=== PATIENT | female | born 1955 | race Hispanic/Latino ===

== ENCOUNTER → 2019-01-01 10:41 | Outpatient (CLI) | payer OTHER, SELFPAY ==
--- NOTE | 2019-01-01 | DI.US.S_ITS ---
PROCEDURE: US SOFT TISSUE HEAD AND NECK INDICATIONS: ENLARGED LYMPHNODE TECHNIQUE: Real-time scanning was performed of the neck region of interest, with image documentation. COMPARISON: None. FINDINGS: Enlarged lymph nodes present within the neck bilaterally largest on the left measuring up to 2.4 cm and on the right 2.1 cm. IMPRESSION: Bilateral neck lymphadenopathy. Neoplastic process such as lymphoma cannot be excluded and clinical correlation recommended. Consider CT for further imaging. Dictated by: Wilfrid ALSTON Interpreted: Bart No MD on 01/01/2019 at 14:30 Approved by: Bart No M.D. on 01/01/2019 at 14:55
== END ==
PROVIDERS: Family Provider Family Medicine; Visit Provider Family Medicine
DX: R59.0 Localized enlarged lymph nodes (principal)
CPT/HCPCS: 76536

== ENCOUNTER → 2019-01-06 09:53 | Outpatient (CLI) | payer OTHER, SELFPAY ==
--- NOTE | 2019-01-06 | DI.CT.S_ITS ---
PROCEDURE: CT SOFT TISSUE NECK W CON INDICATIONS: Enlarged lymph nodes. Clinical concern for lymphoma TECHNIQUE: After the administration of intravenous contrast, 3.0 mm axial sections acquired from the sella to the aortic arch. Additional oblique axial 3.0 mm sections acquired through the pharynx. 3 mm thick coronal and sagittal reformats were generated. For radiation dose reduction, the following was used: automated exposure control. COMPARISON: [facility], CT, CT CHEST W CON, 01/06/2019, 10:28. FINDINGS: Image quality: Excellent. Lymph nodes: Enlarged lymph nodes can be seen within the supraclavicular regions, with the largest group of lymph nodes seen on the left measuring 3.2 x 3.4 cm in greatest axial dimension. Mass effect is seen upon the common carotid artery, which is deviated anteriorly. Lateral to this group of lymph nodes, there is additional enlarged solitary of lymph nodes seen that measures 2.6 x 2 cm in greatest axial dimension. On the right, there also enlarged supraclavicular lymph node seen, with the largest measuring 2.5 x 1.4 centimeters. Enlarged lymph nodes are also seen within the mediastinum and both perihilar regions. Vessels: Visualized vasculature appears patent. Neck spaces: The oropharynx, nasopharynx, and pharynx demonstrate no mucosal lesions. The vocal cords, false vocal cords, pyriform sinuses, epiglottis, vallecula, and tongue base all appear normal. Extramucosal spaces appear unremarkable. Glands: The parotid and submandibular glands appear normal. Thyroid gland demonstrates no significant CT abnormality. Miscellaneous: Visualized brain and orbits appear normal. A left perihilar mass and a mass within the superior segment of the left lower lobe can be seen. Emphysematous changes are seen. Superficial soft tissues appear normal. Bones: No suspicious bony lesions. Visualized sinuses and mastoids appear unremarkable. Relatively prominent cervical spine degenerative changes are seen. IMPRESSION: Enlarged, abnormal supraclavicular lymph nodes are seen, left worse than right. Enlarged mediastinal and perihilar lymph nodes are also partially seen. There is a left parahilar mass and there is a mass seen within the superior segment of the left lower lobe. Please see accompanying chest CT report for greater detail. Differential diagnosis includes lymphoma and metastatic disease. Relatively prominent cervical spine degenerative change noted. Dictated by: Trevin Barreto M.D. on 01/06/2019 at 11:33 Approved by: Trevin Barreto M.D. on 01/06/2019 at 11:39
[2019-01-06 10:27] LABS: Blood Urea Nitrogen 14 mg/dL (7-17); Estimated Glomerular Filt Rate > 60.0 mL/min (>60)
--- NOTE | 2019-01-06 10:46 | DI.CT.S_ITS ---
PROCEDURE: CT CHEST W CON INDICATIONS: R/0 Lymphoma TECHNIQUE: After the administration of intravenous contrast, 5 mm thick sections acquired from the pulmonary apices to the posterior costophrenic angles. 1 mm axial lung, 5 mm thick coronal and sagittal reformats and 7 mm axial MIP were acquired. For radiation dose reduction, the following was used: automated exposure control, adjustment of mA and/or kV according to patient size. COMPARISON: None. FINDINGS: Image quality: Excellent. Lungs and pleura: No acute air space opacities. Within the superior segment left lower lobe, there is a necrotic 30 mm diameter ovoid density adjacent to the proximal descending thoracic aorta. There is mild apical predominant emphysema bilaterally. No pleural effusions or pneumothorax. Central and peripheral airways are patent and normal in caliber. Mediastinum: Heart size is normal. There is calcification of the coronary vasculature. No pericardial effusion. Multiple sites of bulky necrotic mediastinal adenopathy are present, largest of which measure 22 mm short axis in the right superior paratracheal location, 29 mm short axis in the right mid paratracheal location, 26 mm short axis in the aortocaval location, 20 mm short axis in the subcarinal location, 24 mm short axis in the right hilar location, and 21 mm short axis in the left hilar location. Thoracic aorta and central pulmonary arteries are normal in size. Esophagus is normal in caliber. No hiatal hernia. Bones and chest wall: No suspicious bony lesions. No vertebral body compression fractures. Bilateral necrotic supraclavicular adenopathy is present, measuring 25 mm short axis on the left, and 18 mm short axis on the right. Thyroid gland is within normal limits. Abdomen: Visualized portions of the upper abdomen demonstrate an incompletely visualized right retroperitoneal mass measuring 22 mm short axis, possibly arising from the right adrenal gland, and demonstrating evidence of inferior vena cava invasion. IMPRESSION: 1. Necrotic supraclavicular, mediastinal, and hilar adenopathy, consistent with metastatic disease versus lymphoma. 2. Superior segment left lower lobe pulmonary lesion, possibly indicating metastatic disease. 3. Incompletely visualized right retroperitoneal mass, which may arise from the adrenal gland, and demonstrates evidence of inferior vena cava invasion. 4. Coronary artery disease. Dictated by: Allen Contreras M.D. on 01/06/2019 at 11:06 Approved by: Allen Contreras M.D. on 01/06/2019 at 11:12
--- NOTE | 2019-01-28 14:10 | ONC.MSW ---
Description: Initial Navigation T/C Activity: [facility] called and requested for this MANDOLIN REPAIRER/Navigator to call pt's urgently due to his 's newly diagnosed metastatic lung cancer with widespread mets. They had initially considered establishing care on Saturday, however were not able to get in for 3-weeks. MANDOLIN REPAIRER was able to coordinate with schedulers to obtain a new pt consult date this upcoming Saturday, Feb.02 at 11:00am, which pt/spouse accepted. Discussed initial resource/support needs. shares that pt is not coping well, has been understandably tearful since yesterday, when she was given the results of her pathology from Dr. Chávez. MANDOLIN REPAIRER offered reassurance and explained the role of navigation, as well as resources and support available here in clinic. The only immediate need identified prior to their consult visit is for [place] medical priority [place], which MANDOLIN REPAIRER completed/scanned/emailed to him today. They may need assistance with insurance concerns later this month, [place]. Plan-Meet with pt/spouse on Saturday for first f/f visit, and assist with next steps.
== END ==
PROVIDERS: Visit Provider Family Medicine
DX: C85.90 Non-Hodgkin lymphoma, unspecified, unspecified site (principal); C79.31 Secondary malignant neoplasm of brain; R59.0 Localized enlarged lymph nodes; M47.812 Spondylosis without myelopathy or radiculopathy, cervical region; I25.10 Atherosclerotic heart disease of native coronary artery without angina pectoris
CPT/HCPCS: 36415; 70491; 71260; 82565; 84520; Q9967

== ENCOUNTER 2019-01-16 06:36 | Day surgery (SDC) | payer OTHER, SELFPAY ==
[2019-01-14 11:50] VITALS: BMI 19.3
[2019-01-16] VITALS (10 sets, daily range): BP systolic 144–186; BP diastolic 76–97; PULSE 70–83; RESP 12–20; TEMP 36.2–36.7; O2SAT 92–96; BMI 19.3
--- NOTE | 2019-01-16 | PATH_ITS ---
[facility] Accession Number: [id number] . 01 Material submitted: . lymph node - LEFT NECK LYMPH NODE . 01 Clinical history: . GENERALIZED ENLARGED LYMPH NODES ENLARGED CENTRAL CHEST AND NECK NODES. POSSIBLE LUNG MASS VS NODES . 02 Diagnosis: Left Neck Lymph Node, Biopsy: Adenocarcinoma, consistent with metastasis of lung origin. [facility] 01/21/2019 1455 Local . 02 Comment: As part of routine manufacturing quality manager, Dr. Sidhu has reviewed this case and agrees with the diagnosis of metastatic adenocarcinoma consistent with lung primary. The preliminary findings in this case were reported to Dr. Diaz via his RN, Abbey, by Dr. Benito Mitchell on 01/20/2019 at 1 p.m. . Molelcular studies are pending, and results will be issued in an addendum. . Concurrent flow cytometery ([id number]) shows no evidence of a B or T cell lymphoma. . 02 Electronically signed: . Benito Mitchell MD, PhD, Pathologist NPI- [id number] . 01 Gross description: . Received in formalin, labeled left neck lymph node-formalin, are multiple pieces of thompson tissue (2.0 x 1.5 x 0.3 cm in aggregate). Entirely submitted in cassette A1. Note: Per the requisition, also received were two containers with RPMI and tissue, one wet slide, and one dry slide. ([id number]) /MRV 01/17/2019 2050 Local . 02 Microscopic: . Sections are of a proliferation of epithelioid cells with a diffuse growth pattern. No lymph node tissue is identified. To further classify the epithelioid neoplasm, a panel of immunohistochemical stain is performed (each with an appropriately positive control), with the following immunophenotype: . KATIE - Positive. TTF1 - Positive. Napsin A - Positive. Cytokeratin 7 - Positive. Cytokeratin 20 - Negative. p40 - Rare positive cells. CK5/6 - Negative. S100 - Negative. MARY ANN-3 - Negative. . The morphology and immunoprofile are consistent with metastatic adenocarcinoma of pulmonary origin. . . * This test was developed and its performance characteristics determined by [facility]. It has not been cleared or approved by the U.S. Food and Drug Administration. The FDA has determined that such clearance or approval is not necessary. This test is used for clinical purposes. It should not be regarded as investigational or for research. . . . . . 02 Pathologist provided ICD-10: C77.0 . 02 CPT . 715092, Z52137, O81290 Performed at: 01 [facility] [address] [id number] MD Aleks Vela MD Phone: [phone] Performed at: 02 [facility] [id number] [place] [id number] MD Mar Sidhu MD Phone: [phone]
[2019-01-16] MEDS: LACTATED RINGERS 1,000 ML 42 ML IV (07:27)
--- NOTE | 2019-01-16 08:09 | PM.PREOP ---
Pre-operative Note Interval Note History & Physical reviewed/Exam performed by Physician: Yes Changes to H&P: No H&P completed within 30 days and has changed as indicated here:: see office note 01/14
[2019-01-16] MEDS: CEFAZOLIN 1 GM/50 ML FROZ.PIGGY IV (08:15)
--- NOTE | 2019-01-16 08:55 | SUR.OPER ---
Supine on padded OR bed, head on pillow, right arm secured on padded arm board at <90 degrees abduction, left arm tucked and padded, legs uncrossed, safety belt at thigh, tape over blanket over lower legs.
[2019-01-16] MEDS: BUPIVACAINE 0.5% W/ EPI (PF) VIAL 30 ML INJ (09:26)
--- NOTE | 2019-01-16 09:30 | PM.OP.1 ---
Operative Date/Time/Diagnoses Date of procedure: 01/16/19 Time of procedure: 09:01 Pre-op diagnosis: Lymphadenopathy possible lymphoma Post-op diagnosis: same Procedure & Clinicians Procedure: Incisional biopsy lymph node a superficial left neck Same procedure as scheduled: Yes Indications: Diagnostic Surgeon: Nahid Parks Click Yes if Unassisted: Yes Anesthesia Type: General Operative Notes Findings: Noted here in densely to surrounding structures. Central portion of node removed in pieces. Closure Type: primary Specimen(s): other (Node) Prosthetic devices, grafts, tissues, transplants, or devices: None Estimated Blood Loss (mL): 10 Procedure in detail: The patient was placed supine on the operating room table and underwent general endotracheal anesthesia. She was prepped and draped in the usual fashion. A roll was placed under left flank. Incision was made in Jayshree's lines overlying the mass. It was carried down through platysma to the level the mass. It was clear that this mass was densely adherent everything around it. I began to dissect and fluid egress from the node which I cultured. I then realized that to remove this would be risking damaging everything around it including major venous structures. I therefore began to take pieces from the center the node and the successfully completed work when I thought I had enough tissue for diagnosis. We submitted tissue in formalin and a floor flow cytometry. Slides were prepared as well. Cultures were taken. The subcu was closed with interrupted 3 0 Vicryl. The skin was closed with interrupted 5 0 Vicryl subcuticular stitches and Steri-Strips. Pressure was principally what was used to control bleeding. There was no bleeding at completion. Dressing was applied the patient was awakened extubated and taken recovery room good condition. Complications: none Post-operative Condition: stable Disposition: PACU Plan for aftercare: Will contact patient regarding pathology and make necessary referrals once diagnosis is made.
[2019-01-16] MEDS: fentaNYL 100 MCG/2 ML INJ 50 MCG IV (09:43)
[2019-01-16] MEDS: BENZOCAINE/MENTHOL 1 LOZ PKT 1 EACH PO (09:50)
[2019-01-16] MEDS: OXYCODONE/ACETAMINOPHEN 5/325 TABLET 1 TAB PO (10:02)
== END 2019-01-16 10:48 | disposition home or self-care (01) ==
LOC: OR 06:38
PROVIDERS: PCP Family Medicine; Visit Provider Specialist
PROC: (CPT 38500; principal; 2019-01-16 07:45)
DX: C77.0 Secondary and unspecified malignant neoplasm of lymph nodes of head, face and neck (principal); F17.210 Nicotine dependence, cigarettes, uncomplicated
CPT/HCPCS: 38500; 87070; 87075; 87205; J1100; J2250; J2405; J2704; J3010

== ENCOUNTER → 2019-02-11 07:16 | Outpatient (CLI) | payer OTHER, SELFPAY ==
--- NOTE | 2019-02-11 07:18 | DI.MRI.S_ITS ---
PROCEDURE: MR HEAD/BRAIN WO/W CON INDICATIONS: LUNG CANCER TECHNIQUE: Noncontrast axial T1 spin echo, axial T2 fast spin echo, sagittal and axial FLAIR, coronal T2 fast spin echo, axial gradient echo, axial diffusion and ADC through the brain. After the administration of contrast, axial and coronal T1 spin echo with fat saturation through the brain. COMPARISON: None. FINDINGS: Image quality: Excellent. CSF spaces: Basal cisterns are patent. No extra-axial fluid collections. Ventricles are normal in size and shape. Brain: No midline shift. Multiple presumed intracranial metastatic lesions are present demonstrating predominantly rim enhancement pattern, largest of which is seen in the left temporal lobe measuring approximately 2.1 cm in diameter. There is surrounding vasogenic edema. Additional smaller satellite adjacent lesion measuring 7 mm on image 58 series 14. Ill-defined and peripherally enhancing presumed metastasis also noted within the left aspect of the cheryl which may extend into the midbrain Additional 5 mm anterior left frontal lobe metastasis on image 83 series 14. There is cerebral volume loss for age. There is periventricular white matter chronic small vessel ischemic change. The brainstem appears normal. Diffusion-weighted images demonstrate punctate signal abnormality involving the left basal ganglia region measure 1 mm which may represent lacunar infarct. No chronic ischemic insults. Normal intravascular flow voids are present. Scattered areas of blooming artifact present on the gradient echo pulse sequence as the film montage image which could represent chronic blood products and/or calcifications Skull and face: Calvarial marrow is normal in signal. Orbits appear normal. Sinuses: Sinuses and mastoids appear clear. IMPRESSION: Multiple presumed intracranial metastases as detailed above, the largest of which in the left temporal lobe with surrounding vasogenic edema. Additional metastases seen within the brainstem (left cheryl/midbrain) A tiny focus of signal change within the left basal ganglia region may represent small acute lacunar infarct measuring 1 mm versus atypical T2 shine through artifact. Please correlate clinically. Background diffuse small white matter signal changes, probably represent chronic microvascular ischemic disease, versus statistically less likely demyelination or other infectious, inflammatory, neurodegenerative etiology, technically nonspecific. Dictated by: Bart No M.D. on 02/11/2019 at 9:57 Approved by: Bart No M.D. on 02/11/2019 at 10:08
--- NOTE | 2019-02-11 08:39 | DI.CT.S_ITS ---
PROCEDURE: CT ABDOMEN PELVIS W CON INDICATIONS: LUNG CANCER TECHNIQUE: After the administration of oral and intravenous contrast, 5 mm thick sections acquired from the diaphragms to the symphysis. 5 mm thick coronal and sagittal reformats were performed. For radiation dose reduction, the following was used: automated exposure control, adjustment of mA and/or kV according to patient size. COMPARISON: [facility], CT, CT CHEST W CON, 01/06/2019, 10:28. [facility], CT, ABDOMEN WITH CONTRAST, 07/02/2006, 10:04. FINDINGS: Image quality: Excellent. ABDOMEN: Lung bases: Lung bases are clear. Heart size is normal. Solid organs: Hepatic steatosis. Nodular appearance of the liver suggestive of cirrhosis. There is 1 cm subcapsular hyper enhancement present within the anterior dome on image 12 series 2, potentially vascular shunting in nature however technically indeterminate and recommend attention to this area to exclude hypervascular metastasis. This may have been present on the prior study dated 07/02/06 although less conspicuous Gallbladder unremarkable. Biliary system is non-dilated. Pancreas enhances normally. Spleen is normal in size and enhancement. Large right adrenal nodule measuring 2.7 cm diameter closely abuts the posterior margin of the IVC and appears enlarged since prior study dated 01/06/19 although only incompletely visualized the prior study. Kidneys are normal in size and enhancement, without hydronephrosis. Subcentimeter simple appearing left renal cysts. Peritoneum and bowel: Stomach, small bowel, and colon loops are normal in caliber and wall thickness. No free fluid or air. Nodes and vessels: Shotty retroperitoneal lymph nodes, without definite pathologic enlargement. Aorta and inferior vena cava are normal in caliber. Miscellaneous: No ventral hernias. PELVIS: Genitourinary: Bladder wall thickness is normal. Miscellaneous: No inguinal hernias or adenopathy. Bones: No suspicious bony lesions. No vertebral body compression fractures. IMPRESSION: Interval enlargement of right adrenal metastasis, which closely abuts the posterior margin of the IVC, and may represent early tumor invasion as previously described. Shotty retroperitoneal lymph nodes without definite pathologic enlargement. Nodular cirrhosis of the liver. A hypervascular focus in the subcapsular anterior dome may represent vascular shunting, however recommend close attention to this area on subsequent surveillance studies. Dictated by: Bart No M.D. on 02/11/2019 at 9:21 Approved by: Bart No M.D. on 02/11/2019 at 9:31
== END ==
PROVIDERS: PCP Family Medicine; Visit Provider Internal Medicine Hematology & Oncology
DX: C34.90 Malignant neoplasm of unspecified part of unspecified bronchus or lung (principal); C79.71 Secondary malignant neoplasm of right adrenal gland; G93.9 Disorder of brain, unspecified; K74.60 Unspecified cirrhosis of liver
CPT/HCPCS: 70553; 74177; A9579; Q9967

== ENCOUNTER 2019-03-02 08:47 | Day surgery (SDC) | payer OTHER, SELFPAY ==
[2019-02-25 08:04] VITALS: BMI 19.2
[2019-03-02] VITALS (8 sets, daily range): BP systolic 133–171; BP diastolic 79–92; PULSE 51–481; RESP 9–98; TEMP 36–36.3; O2SAT 96–98; BMI 19.0
--- NOTE | 2019-03-02 | DI.RAD.S_ITS ---
PROCEDURE: XR CHEST 1V INDICATIONS: PORT A CATH TECHNIQUE: One view of the chest was acquired. COMPARISON: [facility], CT, CT CHEST W CON, 01/06/2019, 10:28. FINDINGS: Surgical changes and devices: Right chest Port-A-Cath, the tip of which projects to the superior vena cava. Lungs and pleura: Lungs are clear. No pleural effusions or pneumothorax. Mediastinum: Superior mediastinal and bilateral hilar adenopathy and subcarinal adenopathy. Heart size is normal. Bones and chest wall: No suspicious bony lesions. Overlying soft tissues appear unremarkable. IMPRESSION: Port-A-Cath in place, the tip of which projects to the superior vena cava. Extensive mediastinal and bilateral hilar adenopathy. Dictated by: Julio Whitfield M.D. on 03/02/2019 at 17:07 Approved by: Julio Whitfield M.D. on 03/02/2019 at 17:09
--- NOTE | 2019-03-02 11:25 | PM.HP.1 ---
History of Present Illness History of Present Illness Date Patient Seen: 03/02/19 Time Patient Seen: 11:25 Chief complaint: [id number] Narrative: Patient is a woman with widely metastatic lung cancer here for placement of Port-A-Cath. She has right arm down minute. Patient History Medical History Adenopathy (Acute) Alcoholic cirrhosis (Acute) Anxiety (Acute) Arthritis (Acute) Chronic fatigue (Acute) Current every day smoker (Acute) Depression (Acute) Hepatitis C (Acute) Hypertension (Acute) Impaired vision (Acute) Lung cancer (Acute) Surgical History History of colon surgery (Acute ~08/2016) S/P dissection of cervical lymph nodes (Acute 01/16/19) Family & Social History Family History Mother Cancer Social History: household members spouse Tobacco & Substance use: Smoking Status Current every day smoker alcohol intake former Substance Use Type marijuana Meds Home Medications and Allergies Home Medications Medication Instructions Recorded Confirmed Type dexamethasone 2 mg PO BID #60 tab 02/16/19 03/02/19 Rx naproxen sodium [Aleve] 220 mg PO BID PRN 03/02/19 03/02/19 History Allergies Allergy/AdvReac Type Severity Reaction Status Date / Time No Known Drug Allergies Allergy Verified 03/02/19 09:09 Review of Systems Review of Systems Narrative: No cough at this time. No chest pain or heart problems. She has severe left arm pain. No black or bloody bowel movements. Exam Vital Signs (past 8 hours): - 03/02/19 09:15 Temperature 96.8 F L Pulse Rate 481 H Respiratory Rate 98 H Blood Pressure 148/79 H Oxygen Delivery Method Room Air Narrative Exam Narrative: Cachectic woman in no apparent distress. Tearful. Her eyes are nonicteric. Lungs are clear to auscultation. Heart regular rate and rhythm without murmur gallop. Abdomen is soft nontender. No rashes of the chest wall. Palpable nodes both necks. Alert and oriented x3. Assessment & Plan Assessment & Plan narrative: Patient with lung cancer metastatic to the adrenals the brain of the left arm as well as to hilar neck lymph nodes. She is here for Port-A-Cath so she can get chemotherapy. I have reviewed her CT scan with the radiologist. I would not attempt to use her neck was absolutely necessary because of the amount of tumor there. It appears the bow subclavian systems are patent. Will proceed with a a right-sided Port-A-Cath. I have discussed the procedure with the patient. Risks of bleeding, infection, lung collapse, DVT pulmonary embolism arm swelling all discussed with her. She appears to understand and wishes to proceed.
--- NOTE | 2019-03-02 11:39 | PM.PREOP ---
Pre-operative Note Interval Note History & Physical reviewed/Exam performed by Physician: Yes Changes to H&P: No
[2019-03-02] MEDS: CEFAZOLIN 1 GM VIAL IV (12:00)
--- NOTE | 2019-03-02 12:08 | SUR.OPER ---
Supine on padded OR bed, head on gel donut, towel roll between shoulders, arms padded and tucked at sides, legs uncrossed, safety belt over thighs over blankets.
[2019-03-02] MEDS: HEPARIN 5,000 UNIT, SODIUM CHLORIDE 0.9% 50 ML IV (12:16)
[2019-03-02] MEDS: LIDOCAINE 1% 20 ML INJ (12:17)
--- NOTE | 2019-03-02 12:45 | SUR.PHASEI ---
report given to Geovany Smith RN.
--- NOTE | 2019-03-02 12:50 | PM.OP.1 ---
Operative Date/Time/Diagnoses Date of procedure: 03/02/19 Time of procedure: 12:51 Pre-op diagnosis: Metastatic lung cancer Post-op diagnosis: same Procedure & Clinicians Procedure: Placement of right subclavian Port-A-Cath Same procedure as scheduled: Yes Indications: Need for IV access for chemotherapy Surgeon: Nahid Parks Click Yes if Unassisted: Yes Anesthesia Type: General Operative Notes Findings: Tip in the distal SVC. No evidence of pneumothorax Closure Type: primary Specimen(s): none sent Prosthetic devices, grafts, tissues, transplants, or devices: Port-A-Cath slim Applied: catheter Estimated Blood Loss (mL): 5 Blood products transfused: none Procedure in detail: The patient was placed supine on the operating table and underwent general LMA anesthesia. She was prepped and draped in the usual fashion placed in Trendelenburg. Block anesthesia was performed beneath the right clavicle. Incision was made and carried in the subcu. A pocket was created inferior to the incision. A needle was inserted on 1st attempt into the subclavian vein. Guidewire was passed needle removed. The port was put together and tapered to appropriate length. The port was placed in the pocket. The dilator and introducer were passed over the guidewire under fluoroscopic visualization. The wire and dilator were removed leaving the introducer in place. The catheter was passed through the introducer and the introducer peeled away leaving it in place. The tip appeared to be in the distal SVC. The catheter was aspirated and flushed with heparinized saline. The catheter was secured to the chest wall with interrupted 2 0 silk sutures. Subcu was closed with interrupted 3 0 Vicryl and skin was closed running 4 0 Vicryl subcuticular stitch and Steri-Strips. Dressing was applied and patient was awakened, extubated and taken recovery area in good condition. Postprocedure chest x-ray showed no evidence of pneumothorax and the tip in the SVC Complications: none Post-operative Condition: stable Disposition: PACU
== END 2019-03-02 13:31 | disposition home or self-care (01) ==
PROVIDERS: PCP Family Medicine; Visit Provider Specialist
PROC: (CPT 36561; principal; 2019-03-02 10:30)
DX: C34.90 Malignant neoplasm of unspecified part of unspecified bronchus or lung (principal); Z45.2 Encounter for adjustment and management of vascular access device; F17.210 Nicotine dependence, cigarettes, uncomplicated
CPT/HCPCS: 36561; 71045; 76000; C1788; J0690; J1644; J2250; J2704; J3010

== ENCOUNTER 2019-04-06 10:40 | Emergency (ER) | payer OTHER, SELFPAY ==
[2019-04-06 10:50] VITALS: BP 159/104; PULSE 103; RESP 20; TEMP 36.6; O2SAT 95; BMI 17.9
--- NOTE | 2019-04-06 10:54 | DI.RAD.S_ITS ---
PROCEDURE: XR HUMERUS LT 2V INDICATIONS: hx of mets to L arm, c/o worsening pain TECHNIQUE: 2 views of the humerus were acquired. COMPARISON: None. FINDINGS: Bones: No definite fracture identified however there is a large lytic lesion involving the proximal left humeral diaphysis measuring 2.4 x 2.6 cm. Soft tissues: No suspicious soft tissue calcifications. IMPRESSION: Large lytic lesion involving the proximal left humeral diaphysis presumably reflecting metastatic lesion. Given the appearance, suspect high risk of pathologic fracture and recommend appropriate precautions. Findings were personally telephoned and discussed with Dr. Garcia in the emergency department at 1131 hours 04/06/19. Dictated by: Bart No M.D. on 04/06/2019 at 11:28 Approved by: Bart No M.D. on 04/06/2019 at 11:32
--- NOTE | 2019-04-06 11:28 | ED.EXTPRO ---
HPI - Extremity Problem <EMY Newman - Last Filed: 04/06/19 15:51> General Chief complaint: Extremity Problem,Nontraumatic Stated complaint: both arms hurt Time Seen by Provider: 04/06/19 11:09 Source: patient and family Mode of arrival: Wheelchair Limitations: no limitations History of Present Illness HPI Narrative: This is a 63 old female, former smoker, presents to ED with chief complain of left upper arm pain and now patient also has right shoulder strain pain. Patient has history of lung cancer and recently they found cancer which has been met to brain and left humerus pain. Patient reports due to pain on her left arm has been using increasing right arm to pull herself up and lift. Patient reports has been having increasing pain on left arm and right shoulder during last 3 days. Patient's is currently taking Percocet 5/325 about every 4.5 hours instead of as it is prescribed as 6 hours. Patient and spouse states they have Orthopedic referral and waiting for the office to call back. Patient reports decreased p.o. fluid and food intakes and also complaining of tongue discomfort. Patient has next course of chemotherapy on 04/20/19. Related Data Home Medications Medication Instructions Recorded Confirmed naproxen sodium [Aleve] 220 mg PO BID PRN 03/02/19 04/06/19 Previous Rx's Medication Instructions Recorded ondansetron HCl [Zofran] 4 mg PO Q6H PRN #30 tab 03/09/19 oxycodone-acetaminophen [Endocet] 1 tab PO Q6H PRN #60 tab 03/30/19 lidocaine HCl [Lidocaine Viscous] 1 applictn MM TID-QID PRN #100 ml 04/06/19 oxycodone-acetaminophen 1 tab PO Q4-6H PRN #20 tab 04/06/19 Allergies Allergy/AdvReac Type Severity Reaction Status Date / Time hydrocodone AdvReac Mild Nausea Verified 04/06/19 10:58 Review of Systems <EMY Newman - Last Filed: 04/06/19 15:51> Review of Systems Narrative: General: Denies fever, chills, fatigue, malaise, sweats. HEENT: Denies sinus pain, ear pain, sore throat, difficulty swallowing, dizziness. Respiratory: Denies dyspnea, cough, wheezing, hemoptysis, sputum. Cardiovascular: Denies chest pain, palpitations, orthopnea, edema. Gastrointestinal: Reports decreased p.o. intake of fluids and solids. Reports tongue pain. Denies nausea, vomiting, abdominal pain, diarrhea, constipation, melena. : Denies dysuria, frequency, incontinence, hematuria, urinary retention. Musculoskeletal: See HPI Skin: Denies rash, skin lesions, or other. Neurologic: Denies weakness, headache, numbness, change in speech, confusion, seizures, incoordination. Psychiatric: No concerning psychosocial issues. 12-point review of systems is negative except for those stated above. Patient History <EMY Newman - Last Filed: 04/06/19 15:51> Medical History Adenopathy (Acute) Alcoholic cirrhosis (Acute) Anxiety (Acute) Arthritis (Acute) Chronic fatigue (Acute) Current every day smoker (Acute) Depression (Acute) Hepatitis C (Acute) Hypertension (Acute) Impaired vision (Acute) Lung cancer (Acute) Lung cancer metastatic to brain (Acute) Surgical History History of colon surgery (Acute ~08/2016) S/P dissection of cervical lymph nodes (Acute 01/16/19) Family History Mother Cancer Social History (Updated 04/06/19 @ 11:34 by EMY Newman) marital status: household members: spouse Smoking Status: Former smoker alcohol intake: former substance use type: marijuana Smoking Status: Current every day smoker Substance Use Type: marijuana Exam <EMY Newman - Last Filed: 04/06/19 15:51> Narrative Exam Narrative: GEN: Alert, oriented x 3, medically fragile appearing and under nourished, and in appears to be in pain. Head: Normal cephalic, atraumatic. No scalp or temporal tenderness, palpable mass or rash. EYES: Pupils are equal, round, and reactive to light and accommodation. Extraocular muscles are intact bilaterally. There is no subconjunctival hemorrhage, exudate and sclera non-icteric. ENT: Bilateral auditory canals and tympanic membranes clear. Hearing grossly intact. Nose without bleeding, purulent discharge or deviation. Facial sinuses nontender to palpate. Mucous membrane dry anterior tongue mucosal lesion. Throat without erythema, tonsillar hypertrophy or exudate. Uvula in midline, airway patent. Neck: Trachea in midline. No JVD, non-tender. No masses or thyroid megaly. Supple, non-tender and no meningeal signs. CARDIAC: Normal regular rate and rhythm without murmurs, gallops, or rubs. No chest wall tenderness. No peripheral edema, cyanosis or pallor. Capillary refill is less than 2 seconds. RESPIRATORY: Lungs are clear to auscultate bilaterally. No cough, wheezes, rales, or rhonchi. No stridor, respiratory distress, increase work of breathing, or accessary muscle used. ABD: Abdomen soft, nontender and non-distended. No guarding or rebound tenderness to palpate. Bowel sounds are normal in all 4 quadrants. There is no palpable masses or organomegaly. EXT: Full painless ROM of all extremities with no loss of sensation, strength, effusion or edema. SKIN: Warm, dry, normal color for patient. No erythema, lesions or rash over visible areas. BACK: Nontender without deformity or crepitance. No flank tenderness. NEUROLOGICAL: Alert and oriented to place, time and person. Sensation and motor function intact bilaterally. No facial droops, dysphasia. PSYCHIATRIC: Good judgement and reason, without hallucinations, abnormal affect or abnormal behaviors during the examination. Patient is not suicidal. Initial Vital Signs Initial Vital Signs: Vital Signs Temperature 97.9 F 04/06/19 10:50 Pulse Rate 103 H 04/06/19 10:50 Respiratory Rate 20 04/06/19 10:50 Blood Pressure 159/104 H 04/06/19 10:50 Pulse Oximetry 95 04/06/19 10:50 <Janet Garcia DO - Last Filed: 04/07/19 07:38> Initial Vital Signs Initial Vital Signs: Vital Signs Temperature 97.9 F 04/06/19 10:50 Pulse Rate 103 H 04/06/19 10:50 Respiratory Rate 20 04/06/19 10:50 Blood Pressure 159/104 H 04/06/19 10:50 Pulse Oximetry 95 04/06/19 10:50 Procedures <EMY Newman - Last Filed: 04/06/19 15:51> Orthopedic Splinting/Casting Injury #1: Side: left Upper Extremity Injury Location: upper arm Upper Extremity Immobilizer: sling/shoulder immobilizer Post splinting neuro exam: intact Post splinting vascular exam: intact Placed by: Nursing Course <EMY Newman - Last Filed: 04/06/19 15:51> Orders Ordered: ED Orders 04/06/19 10:54 XR humerus LT 2V Stat Vital Signs Vital signs: Vital Signs - 8 hr 04/06/19 10:50 04/06/19 11:57 Temperature 97.9 F Pulse Rate 103 H 88 Respiratory Rate 20 18 Blood Pressure 159/104 H Blood Pressure [Right Arm] 174/86 H Pulse Oximetry 95 99 <Janet Garcia DO - Last Filed: 04/07/19 07:38> Orders Ordered: ED Orders 04/06/19 10:54 XR humerus LT 2V Stat Vital Signs Vital signs: Vital Signs - 8 hr 04/06/19 10:50 04/06/19 11:57 Temperature 97.9 F Pulse Rate 103 H 88 Respiratory Rate 20 18 Blood Pressure 159/104 H Blood Pressure [Right Arm] 174/86 H Pulse Oximetry 95 99 MDM - Extremity (Nontraumatic) <EMY Newman - Last Filed: 04/06/19 15:51> Differential Diagnosis Differential diagnosis: Likely other (Metastasized cancer to left humerus, left humerus fracture, cancer related bone pain, right shoulder strain) Medical Records Attestation: I reviewed the patient's medical records. Imaging Data XR-Hurmerus LT: Radiologist's impression: Laisha Li 63 F [address] [address] XRay Report Signed Patient: IndigojulisaLaisha JMR#: [id number] : 1955cct:[id number] Age/Sex: 63 / FDate of Service: 04/06/19 Loc: ED Accession Number: [id number] Procedure: XR humerus LT 2V Ordering Provider: Janet Garcia D.O. PROCEDURE: XR HUMERUS LT 2V INDICATIONS: hx of mets to L arm, c/o worsening pain TECHNIQUE: 2 views of the humerus were acquired. COMPARISON: None. FINDINGS: Bones: No definite fracture identified however there is a large lytic lesion involving the proximal left humeral diaphysis measuring 2.4 x 2.6 cm. Soft tissues: No suspicious soft tissue calcifications. IMPRESSION: Large lytic lesion involving the proximal left humeral diaphysis presumably reflecting metastatic lesion. Given the appearance, suspect high risk of pathologic fracture and recommend appropriate precautions. Findings were personally telephoned and discussed with Dr. Garcia in the emergency department at 1131 hours 04/06/19. Dictated by: Bart No M.D. on 04/06/2019 at 11:28 Approved by: Bart No M.D. on 04/06/2019 at 11:32 MDM Narrative Medical decision making narrative: This is a 63-year-old female with a history of lung cancer with met cancer to her brain and left humerus from recent PET scan imaging test. Patient has been having increasing pain on left humerus and also right shoulder discomfort. Patient states she has been taking 1 Percocet about every 4.5 hours to use the pain which has not been effectively managed. Patient has been using [id number] sling on left shoulder. Patient has been using right arm to pull due to pain in left upper arm and this has been increasing last 3-4 days. Patient also has been having difficulty eating and drinking due to stomatitis. X-ray test shows no fracture at this time but large lidocaine lesion involving proximal left humeral diaphysis. Patient and her spouse encouraged to contact orthopedics office again to be seen sooner as refer has been arranged by oncologist. Also, patient and spouse to contact Oncology office to be seen sooner than scheduled appointment due to patient has difficult time eating and drinking prior next chemotherapy. Patient's affected arm was splinted with left shoulder immobilizer and advised to take a precaution not to injured or fall. New prescription has been provided for pain management with oxycodone 7.5 mg/Tylenol 300 mg every 4-6 hours as needed and not to take additional patient's current Percocet. Lidocaine oral gel has been provided for stomatitis and advised to hydrate and is small amount of fluids. Patient and spouse verbalized understanding and agrees with treatment plan. Return precautions were discussed. Discharge Plan Departure Patient Disposition: Home Clinical Impression: Upper extremity pain Qualifiers: Laterality: bilateral Qualified Code(s): M79.601 - Pain in right arm Discharge Date/Time: 04/06/19 12:19 Instructions: Cancer Pain Syndromes Activity Restrictions/Additional Instructions: You have been diagnosed with [metastatic left humerus bone pain without fracture at this time. However this is a high risk for fracture. Please use sling that has been provided to you and take precaution not to injure your left arm. Please follow-up with orthopedics as suggested by our oncologist.]. What to do: *Take your medications as directed. Your Percocet dose has been increased to 7.5/300 mg. you can take 1 tab of pain medication every 4-6 hours as needed for discomfort. When you take increased Percocet dose please do not take additional your Percocet that you have. I order oral lidocaine gel for discomfort on her tongue. Use this medication periodically and try to hydrate yourself and eat small amount of food frequently. *Follow up with your primary care provider in 2-3 days, call for an appointment and please call Oncology Clinic to set up an appointment. Let them know you were seen in the ED and that we asked you to be seen in follow up. *Return to ED if you have any new, worsening, or concerning symptoms, such as [increasing pain, fracture, breathing difficulty, unable to tolerate fluids, or any acute concerns]. Prescriptions: New oxycodone-acetaminophen 7.5-300 mg tablet 1 tab PO Q4-6H PRN (Reason: pain) Qty: 20 RF: 0 Lidocaine Viscous 2 % solution 1 applictn MM TID-QID PRN (Reason: pain) Qty: 100 RF: 0 No Action naproxen sodium [Aleve] 220 mg Tablet 220 mg PO BID PRN (Reason: Pain) RF: 0 ondansetron HCl [Zofran] 4 mg Tablet 4 mg PO Q6H PRN (Reason: Nausea And Vomiting) Qty: 30 RF: 2 oxycodone-acetaminophen [Endocet] 5-325 mg Tablet 1 tab PO Q6H PRN (Reason: bone metastasis with pain) Qty: 60 RF: 0 Referrals: Porfirio Lugo MD [Primary Care Provider] - Philip Day MD [Physician] -
[2019-04-06 11:57] VITALS: BP 174/86; PULSE 88; RESP 18; O2SAT 99
--- NOTE | 2019-04-07 15:14 | PC.NURSE ---
POTENTIAL SURGERY TO HUMERUS; [facility]TH[facility] CALLED TO INFORM THAT PATIENT WILL BE SEEING SURGEON ON 04/13 AND A SURGERY IS TENTATIVELY PLANNED ON 04/15. SURGEON IS PLANNING TO PUT A NAIL INTO THE HUMERUS TO STABILIZE IT. DR. JERNIGAN WILL BE INFORMED PER THIS NOTE.
== END 2019-04-06 12:19 | disposition home or self-care (01) ==
PROVIDERS: Emergency Provider Nurse Practitioner Family; PCP Family Medicine
DX: M79.601 Pain in right arm (principal); C79.31 Secondary malignant neoplasm of brain
CPT/HCPCS: 73060; 99282; 99283

== ENCOUNTER → 2019-04-10 14:09 | Outpatient (CLI) | payer OTHER, SELFPAY ==
[2019-04-10 15:16] LABS: Add Manual Diff / Slide Review NO; Basophils Absolute Auto 100 /uL (0-100); Basophils Percent Auto 0.7 % (0-2); Eosinophils Absolute Auto 400 /uL (0-450); Eosinophils Percent Auto 2.5 % (2-4); Hematocrit 37.8 % (36-46); Hemoglobin 12.9 g/dL (12.0-16.0); Lymphocytes Absolute Auto 1600 /uL (1100-4500); Lymphocytes Percent Auto 9.8 % (25-40); Mean Corpuscular HGB Conc 34.2 % (30-36); Mean Corpuscular Hemoglobin 31.5 PG (26-34); Mean Corpuscular Volume 92.1 fL (80-100); Monocytes Absolute Auto 1800 /uL (0-900); Neutrophils Absolute Auto 12500 /uL (1500-7000); Platelet Count 267 X10^3/uL (150-400); Red Blood Cell Count 4.11 X10^6/uL (4.0-5.2); Red Cell Distribution Width 15.1 % (11.6-14.8); White Blood Cell Count 16.5 X10^3/uL (4.5-11.0)
[2019-04-10 15:32] LABS: Alanine Aminotransferase 10 IU/L (<35); Albumin 3.6 g/dL (3.5-5.0); Albumin Globulin Ratio 0.9 (1.0-2.8); Alkaline Phosphatase 97 U/L (38-126); Aspartate Aminotransferase 32 IU/L (14-36); BUN Creatinine Ratio 25.7 (6-22); Bilirubin Total 1.2 mg/dL (0.2-1.3); Blood Urea Nitrogen 18 mg/dL (7-17); Calcium 9.1 mg/dL (8.4-10.2); Carbon Dioxide 32 mmol/L (22-32); Chloride 92 mmol/L (98-107); Estimated Glomerular Filt Rate > 60.0 mL/min (>60); Globulin 3.8 g/dL (1.7-4.1); Glucose 115 mg/dL (80-110); HEMOLYSIS < 15 (0-50); Potassium 3.7 mmol/L (3.4-5.1); Sodium 134 mmol/L (137-145); Total Protein 7.4 g/dL (6.3-8.2)
== END ==
PROVIDERS: Family Provider Internal Medicine Hematology & Oncology; PCP Family Medicine; Visit Provider Orthopaedic Surgery Adult Reconstructive Orthopaedic Surgery
DX: Z01.818 Encounter for other preprocedural examination (principal); Z01.812 Encounter for preprocedural laboratory examination
CPT/HCPCS: 36415; 80053; 85025; 93005; 93010

== ENCOUNTER 2019-04-20 06:35 | Day surgery (SDC) | payer OTHER, SELFPAY ==
[2019-04-16 12:13] VITALS: BMI 19.2
[2019-04-20] VITALS (10 sets, daily range): BP systolic 142–167; BP diastolic 87–101; PULSE 86–97; RESP 8–20; TEMP 36.4–37.4; O2SAT 93–96; BMI 16.9
--- NOTE | 2019-04-20 | PATH_ITS ---
[facility] Accession Number: [id number] . 01 Material submitted: . humerus - LEFT HUMERUS MARROW . 01 Diagnosis: Bone, Left Humerus, Biopsy: Fragments of trabecular bone, marrow, and desmoplastic/fibrotic tissue with foci highly suspicious for necrotic/degenerated metastatic carcinoma (see comment). Multiple lymphoid aggregates (final diagnosis pending additional studies, reported as an addendum). V 04/28/2019 1327 Local . 01 Comment: A few fragments of desmoplastic fibrotic tissue are identified in all three blocks which, on routine H/E section, exhibit an inflammatory infiltrate, crush artifact, and scattered completely necrotic or extensively degenerated atypical epithelioid cells, the latter of which may represent metastatic carcinoma. *Immunostains to broad spectrum cytokeratins (KATIE) are obtained on blocks A1-A3 and show scattered staining, most of which appears to be unassociated with cells and may represent hemosiderin with a lesser component seemingly associated with possible necrotic cells. Additionally, on block A3, the lung markers TTF1 and napsin are obtained as well as cytokeratin 7. Cytokeratin 7 shows positive staining similar to the KATIE. TTF1 is negative, and napsin shows scattered staining throughout, some of which appears to be cell associated. These immunophenotypic features, in conjunction with the aforementioned morphologic findings, are considered very suspicious for a metastasis from the patient's reported lung adenocarcinoma, yet not diagnostic, due to the extensive degeneration and necrosis of the cells of interest. . As indicated in the diagnostic line, scattered lymphoid aggregates are present within the marrow, which will be more fully evaluated by a hemtopathologist, with those findings and interpretation reported in an addendum. . *The immunohistochemical stains are developed and performance characteristics determined by [facility]. It has not been cleared or approved by the U.S. Food and Drug Administration. The FDA has determined that such clearance or approval is not necessary. This test is used for clinical purposes. It should not be regarded as investigational or for research. The controls stained appropriately. . 01 Electronically signed: . Maribell Lovell MD, Pathologist NPI- [id number] . 01 Gross description: . Received one formalin-filled container labeled with the patient's name and labeled left humerus marrow. The specimen consists of multiple fragments of tissue and clotted blood which measure 3.0 x 1.5 x 0.2 cm in aggregate. The specimen is filtered and entirely submitted in cassettes A1 and A2. Also received is a 0.2 cm in diameter by 0.4 cm in length portion of firm tissue or bone, entirely submitted in cassette A3 and will be placed in decal for softening. ([id number]) /[facility] 04/21/2019 0229 Local . 01 Pathologist provided ICD-10: C79.51 . 01 CPT . 586711, F04980, [id number] Performed at: 01 [facility] [address] [place] [id number] MD Aleks Vela MD Phone: [phone]
--- NOTE | 2019-04-20 | DI.RAD.S_ITS ---
PROCEDURE: XR HUMERUS LT 2V INDICATIONS: LEFT SHOULDER LESION TECHNIQUE: AP, lateral, and oblique views of the humerus were acquired. COMPARISON: Merged With [facility], [place], [place] PET CT FUSION SKULL 2 THIGH, 02/25/2019, 16:01. Merged With [facility], , XR HUMERUS LT 2V, 04/06/2019, 10:52. FINDINGS: Intraoperative fluoroscopy demonstrates the placement of an intramedullary dennise with interlocking screws within the proximal left humerus, traversing the previously identified 2.6 cm lytic lesion of the proximal left humeral diaphysis identified on comparison left humerus radiographs of 04/06/19. IMPRESSION: Intraoperative fluoroscopy demonstrates the placement of an intramedullary dennise with interlocking screws within the proximal left humerus, traversing the previously identified 2.6 cm lytic lesion of the proximal left humeral diaphysis identified on comparison left humerus radiographs of 04/06/19. Dictated by: Dell Quarles M.D. on 04/20/2019 at 17:33 Approved by: Dell Quarles M.D. on 04/20/2019 at 17:42
[2019-04-20] MEDS: OXYCODONE/ACETAMINOPHEN 5/325 TABLET 1 TAB PO ×3 (08:32→13:42)
[2019-04-20] MEDS: LACTATED RINGERS 1,000 ML 42 ML IV ×2 (08:33→09:50)
--- NOTE | 2019-04-20 08:39 | SUR.PREOP ---
Accessed right chest wall portacath using sterile technique on one attempt. Good blood return noted on access and port flushes well and without difficulty. Op-site and 2x2 dressing applied to site. Placed IV fluids to pump tubing and placed fluids on IV pump per protocol.
--- NOTE | 2019-04-20 09:12 | PM.PREOP ---
Pre-operative Note Interval Note History & Physical reviewed/Exam performed by Physician: Yes Changes to H&P: No H&P completed within 30 days and has changed as indicated here:: Plan for L humeral IMN
[2019-04-20] MEDS: CEFAZOLIN 2 GM/100 ML FROZ.PIGGY IV (09:45)
--- NOTE | 2019-04-20 10:35 | SUR.OPER ---
Beach chair with Maquet shoulder positioner. Lower body on padded Skytron OR bed. Head in foam padded head cradle, secured with straps. Non-operative arm secured <90 degrees abduction. Towel roll under left scapula. Pillow under knees. Watson under buttocks. Safety belt at thigh. Cloth tape over blanket over lower legs.
--- NOTE | 2019-04-20 11:42 | PM.OP.1 ---
Operative Date/Time/Diagnoses Date of procedure: 04/20/19 Time of procedure: 11:42 Pre-op diagnosis: metastatic lesion, left humerus Post-op diagnosis: same Procedure & Clinicians Procedure: Prophylactic left humeral nail Same procedure as scheduled: Yes Indications: Metastatic lesion to the left humerus with the Meril's score of 10 Surgeon: Christiano Ragsdale Insurance Auditor: Olesya Tatum Anesthesia Type: General Operative Notes Findings: Left humerus metastatic lesion lytic in nature greater than 2/3 of the diameter of the humerus Closure Type: primary Specimen(s): other (Pathology sent, humeral shaft reamings) Prosthetic devices, grafts, tissues, transplants, or devices: Biomet versa nail 8 mm x 240 mm Biomet [place] humeral flushed impinging end cap Estimated Blood Loss (mL): 50 Blood products transfused: none Procedure in detail: Patient was met in the preoperative holding area where the site and side of surgery marked by MD. All last minute questions were answered. Patient was then brought back into the operating room and placed on to the operating room table. She was induced under general anesthesia. The operating room table and patient was then brought into a beach chair position and a towel bump was placed underneath the left scapula. The left upper extremity is then prepped and draped in normal sterile fashion. A surgical time-out was performed verifying the site and side of surgery as well as the name of the patient. A 4 cm long incision was made in line with the deltoid fibers at the anterolateral corner of the left acromion. Electrocautery was used to gain hemostasis. The deltoid was then split in line with its fibers. A Cobra retractor was then used to retract the deltoid. And a 3 cm long incision was made in the supraspinatus cuff and Ethibond was used to tag the cuff leaflet. The starting guidewire was then placed just medial to the greater tuberosity and centered anterior to posterior so that the starting guidewire was centered in the humeral canal. The starting Reamer was then used to open up the humeral canal. The starting guidewire was then removed along with the Reamer and a ball-tipped guidewire was then placed down the humeral canal. The humeral nail was then placed over the guidewire. Guidewire was then removed and proximal bolts were drilled in place followed by 2 distal interlocking bolts placed using perfect circles technique. Surgical incisions were then copiously irrigated and the cuff was repaired using the Ethibond tag sutures as well as a rip interrupted Ethibond suture. Deltoid fibers were then repaired using 1. Vicryl followed by 2-0 Vicryl in the subcutaneous layer followed by 3-0 nylon in the skin. All percutaneous incisions were closed using 2 Vicryl followed by 3 O nylon. Final films were obtained using C-arm verifying the position of the nail as well as no intrusion of any interlocking bolts into the shoulder joint. Complications: none Post-operative Condition: stable Disposition: same day surgery Plan for aftercare: Plan for DC home today. SAWYER BAEZ.
[2019-04-20] MEDS: fentaNYL 100 MCG/2 ML INJ IV ×3 (12:15→12:59)
--- NOTE | 2019-04-20 13:51 | SUR.PHASEII ---
Provided [place] copy to patient and faxed physician copy to [place]. RX provided to patient. has all paperwork and RX. All belongings returned to patient. Dressing to left shoulder clean, dry and intact. Good cap refill noted. Patient denies numbness or tingling. Sling in place.
--- NOTE | 2019-04-20 14:25 | SUR.PHASEII ---
Flushed portacath with 5 mls of 100 units/ml heparin per protocol. Deaccessed portacath with needle intact. Gauze dressing applied to site. Discharged patient home with in stable condition. To the car via wheelchair.
== END 2019-04-20 14:25 | disposition home or self-care (01) ==
PROVIDERS: Family Provider Internal Medicine Hematology & Oncology; PCP Family Medicine; Visit Provider Orthopaedic Surgery Adult Reconstructive Orthopaedic Surgery
PROC: (CPT 23615; principal; 2019-04-20 09:15)
DX: C79.51 Secondary malignant neoplasm of bone (principal); C34.90 Malignant neoplasm of unspecified part of unspecified bronchus or lung
CPT/HCPCS: 24498; 73030; 73060; 76000; J0690; J1100; J2250; J2405; J2704; J3010

== ENCOUNTER → 2019-05-28 13:01 | Outpatient (CLI) | payer OTHER, SELFPAY ==
--- NOTE | 2019-05-28 13:03 | DI.MRI.S_ITS ---
PROCEDURE: MR HEAD/BRAIN WO/W CON INDICATIONS: metastatic lung cancer TECHNIQUE: Noncontrast axial T1 spin echo, axial T2 fast spin echo, sagittal and axial FLAIR, coronal T2 fast spin echo, axial gradient echo, axial diffusion and ADC through the brain. After the administration of contrast, axial and coronal 3D VIBE or T1 spin echo with fat saturation through the brain. COMPARISON: [facility], MR, MR HEAD/BRAIN WO/W CON, 02/11/2019, 8:52. FINDINGS: Image quality: Excellent. CSF Spaces: Basal cisterns are patent. No extra-axial fluid collections. Ventricles are normal in size and shape. Brain: No midline shift. No intracranial bleeds or new masses. The post-treatment imaging shows significant interval reduction in size of a metastatic focus at the left temporal lobe, middle third, which now is associated with only a slight degree of internal contrast enhancement over a 4 x 6 mm dimension, and also elevated flair signal in that area, much improved from the comparison study 02/11/19. Additionally, similar improvement has occurred in the area of metastatic disease involving the left pontine portion of the brainstem, where a definite residual enhancing lesion is no longer seen. Elevated flair signal in that area persists, tracking into the cerebellar peduncle on the left. This pontine involvement has significantly improved also. No new abnormal intracranial enhancement. Diffusion-weighted images demonstrate no ischemic insults. No chronic ischemic insults. Normal intravascular flow voids are present. Skull and face: Calvarial marrow is normal in signal. Orbits appear normal. Sinuses: Sinuses and mastoids appear clear. IMPRESSION: Interval therapy from the MR scanning 02/11/19 2 the current examination shows significant reduction in the left temporal lobe enhancing mass lesion with adjacent prominent vasogenic edema and also no residual enhancing mass lesion in the left pontine portion of the brainstem with previously more prominent vasogenic edema. Residual elevated flair signal is seen at each of those areas over a significantly reduced size of involvement. No new metastatic disease has developed. Dictated by: Reyes Sheriff M.D. on 05/28/2019 at 16:28 Approved by: Reyes Sheriff M.D. on 05/28/2019 at 16:36
== END ==
PROVIDERS: Family Provider Internal Medicine Hematology & Oncology; PCP Family Medicine; Visit Provider Internal Medicine Hematology & Oncology
DX: C34.32 Malignant neoplasm of lower lobe, left bronchus or lung (principal); C77.8 Secondary and unspecified malignant neoplasm of lymph nodes of multiple regions; C79.31 Secondary malignant neoplasm of brain; C79.71 Secondary malignant neoplasm of right adrenal gland; C79.51 Secondary malignant neoplasm of bone
CPT/HCPCS: 70553

== ENCOUNTER 2019-07-02 12:17 | Emergency (ER) | payer OTHER, SELFPAY ==
[2019-07-02] VITALS (9 sets, daily range): BP systolic 176–225; BP diastolic 101–114; PULSE 60–68; RESP 14–21; TEMP 35.7; O2SAT 95–97
--- NOTE | 2019-07-02 | DI.RAD.S_ITS ---
PROCEDURE: FL CATHETER PATENCY COMPARISON: None. INDICATIONS: power port catheter not working FINDINGS: Injected contrast material is seen within the power port of, without definite leakage into the surrounding subcutaneous soft tissues. However, only a partial contrast opacification of the proximal segment of the port catheter. There is markedly increased resistance to manual syringe injection. IMPRESSION: Nonfunctioning port, with contrast material partially filling the proximal segment of the catheter. Markedly increased resistance to manual syringe injection. Findings are personally telephoned and discussed with Dr. Banks in the emergency department at 1537 hours on 07/02/19 Dictated by: Bart No M.D. on 07/02/2019 at 15:28 Approved by: Bart No M.D. on 07/02/2019 at 15:38
--- NOTE | 2019-07-02 13:14 | ED.GENADULT ---
HPI - General Adult General Chief complaint: Hypertension Stated complaint: oncology sent Time Seen by Provider: 07/02/19 12:40 Source: patient Mode of arrival: Wheelchair Limitations: no limitations History of Present Illness HPI narrative: Patient is a 63-year-old female. Has a history of lung cancer. Is currently undergoing chemotherapy. Had labs drawn this morning as an outpatient are unremarkable. Went to Oncology today to to her normally scheduled treatment. He was found this morning that they were unable to draw from her power port. There was also concerns at the oncology suite that they were unable to inject anything and the power port. They also found the patient was hypertensive. Upon arrival patient informed me that she had no symptoms to include headache or chest pain or problems breathing or lower extremity swelling. Patient's is at bedside he states that she normally has a blood pressure with a systolic in the 160s to 180s range. She is not taking blood pressure medications. Related Data Home Medications Medication Instructions Recorded Confirmed naproxen sodium [Aleve] 220 mg PO BID PRN 03/02/19 07/02/19 Previous Rx's Medication Instructions Recorded ondansetron HCl [Zofran] 4 mg PO Q6H PRN #30 tab 03/09/19 Lidocaine Viscous 1 applictn MM TID-QID PRN #100 ml 04/06/19 Allergies Allergy/AdvReac Type Severity Reaction Status Date / Time hydrocodone AdvReac Mild Nausea Verified 07/02/19 12:47 Review of Systems Constitutional Constitutional: Denies fever(s) and Denies headache(s) ENT Ears, Nose, Mouth, and Throat: Denies headache(s) Cardiovascular Cardiovascular: Denies chest pain and Denies dyspnea Respiratory Respiratory: Denies cough and Denies dyspnea Gastrointestinal Gastrointestinal: Denies abdominal pain, Denies nausea and Denies vomiting Musculoskeletal Musculoskeletal: Denies myalgias and Denies arthralgias Integumentary/Breasts Skin/Breast: Denies lesions and Denies rash Neurologic Neurologic: Denies behavioral changes and Denies headache(s) Psychiatric Psychiatric: Denies behavioral changes Hematologic/Lymphatic Hematologic/Lymphatic: Denies easy bleeding and Denies easy bruising Patient History Medical History Adenopathy (Acute) Alcoholic cirrhosis (Acute) Anxiety (Acute) Arthritis (Acute) Chronic fatigue (Acute) Current every day smoker (Acute) Depression (Acute) Easy bruisability (Acute) Hepatitis C (Acute) Hypertension (Acute) Impaired vision (Acute) Lung cancer (Acute) Lung cancer metastatic to brain (Acute) Pain (Acute) Port-A-Cath in place (Acute ~2018) Surgical History History of colon surgery (Acute ~08/2016) S/P dissection of cervical lymph nodes (Acute 01/16/19) Social History marital status: household members: spouse Smoking Status: Former smoker alcohol intake: former substance use type: marijuana Smoking Status: Former smoker alcohol intake frequency: holidays/special occasions only Substance Use Type: marijuana and amphetamines Exam Initial Vital Signs Initial Vital Signs: Vital Signs Temperature 96.3 F L 07/02/19 12:35 Pulse Rate 60 07/02/19 12:35 Respiratory Rate 14 07/02/19 12:35 Blood Pressure 225/107 H 07/02/19 12:35 Pulse Oximetry 96 07/02/19 12:35 Const General: cooperative and comfortable Limitations: mental status not altered HENMT Head: normal to inspection and normocephalic Resp Auscultation: clear to auscultation bilaterally Cardio Rate: regular rate Rhythm: regular rhythm GI Inspection: non-distended Palpation: soft and No firm Skin Lesions: no lesions Rashes: no rashes Neuro General: alert, awake and oriented x3 Cognition: normal cognition Speech: speech normal Extrem General: normal to inspection, capillary refill normal and No edema Psych Appearance: grossly normal and well kempt Course Orders Ordered: ED Orders 07/02/19 13:58 XR chest 2V Stat Discontinued Medications Lisinopril (Zestril) 10 mg PO NOW ONE Stop: 07/02/19 16:12 Last Admin: 07/02/19 16:37 Dose: 10 mg Documented by: INDIA Vital Signs Vital signs: Vital Signs - 8 hr 07/02/19 12:35 07/02/19 13:30 07/02/19 14:00 Temperature 96.3 F L Pulse Rate 60 67 68 Respiratory Rate 14 16 18 Blood Pressure 225/107 H Blood Pressure [Left Arm] 193/101 H 185/103 H Pulse Oximetry 96 95 95 07/02/19 14:15 07/02/19 14:45 07/02/19 15:30 Temperature Pulse Rate 68 65 64 Respiratory Rate 16 15 21 Blood Pressure Blood Pressure [Left Arm] 185/104 H 180/108 H 186/105 H Pulse Oximetry 96 97 97 07/02/19 16:15 07/02/19 16:37 07/02/19 17:13 Temperature Pulse Rate 60 65 66 Respiratory Rate 16 16 Blood Pressure 181/114 H 176/111 H Blood Pressure [Left Arm] 200/110 H Pulse Oximetry 97 97 Medical Decision Making Imaging Data Catheter patency x-ray: Radiologist's Impression: [address] [address] XRay Report Signed Patient: Laisha Li CURTISR#: [id number] : 1955cct:[id number] Age/Sex: 63 / FDate of Service: 07/02/19 Loc: ED Accession Number: [id number] Procedure: FL catheter patency Ordering Provider: Robert Banks D.O. PROCEDURE: FL CATHETER PATENCY COMPARISON: None. INDICATIONS: power port catheter not working FINDINGS: Injected contrast material is seen within the power port of, without definite leakage into the surrounding subcutaneous soft tissues. However, only a partial contrast opacification of the proximal segment of the port catheter. There is markedly increased resistance to manual syringe injection. IMPRESSION: Nonfunctioning port, with contrast material partially filling the proximal segment of the catheter. Markedly increased resistance to manual syringe injection. Findings are personally telephoned and discussed with Dr. Banks in the emergency department at 1537 hours on 07/02/19 Dictated by: Bart No M.D. on 07/02/2019 at 15:28 Approved by: Bart No M.D. on 07/02/2019 at 15:38 Chest x-ray: Radiologist's Impression: [address] [address] XRay Report Signed Patient: Laisha Li SHAYY#: [id number] : 7Acct:[id number] Age/Sex: 63 / FDate of Service: 07/02/19 Loc: ED Accession Number: [id number] Procedure: XR chest 2V Ordering Provider: Robert Banks D.O. PROCEDURE: XR CHEST 2V INDICATIONS: Eval for location/placement of port in R chest TECHNIQUE: 2 views of the chest were acquired. COMPARISON: [facility], , XR CHEST 1V, 03/02/2019, 12:48. FINDINGS: Surgical changes and devices: Right chest port is seen, no definite interval change in position or appearance since 03/02/19. The tip projects in the upper SVC/right brachiocephalic vein as before. Lungs and pleura: Lungs are clear. No pleural effusions or pneumothorax. Mediastinum: Mediastinal contours are normal. Heart size is normal. Bones and chest wall: No suspicious bony abnormalities. Soft tissues appear unremarkable. IMPRESSION: No acute disease Unchanged appearance of right chest port Dictated by: Bart No M.D. on 07/02/2019 at 14:47 Approved by: Bart No M.D. on 07/02/2019 at 14:53 ECG Data Attestation: I personally reviewed and interpreted this ECG as follows: Prior ECG tracings: not available for review Interpretation: Sinus rhythm Ventricular rate is 67 Normal axis Normal QRS Normal QTC No ST T wave changes MDM Narrative Medical decision making narrative: Labs from earlier today shows normal kidney function. EKG did is unremarkable. We were able to access her port nursing staff was concerned about not being able to infuse any fluids. X-ray was ordered which shows that the port appears to be in proper position and does appear that the needle was in the port. Patient was then sent for a patency x-ray. Received a call from Radiology stating that they were concerned about a occlusion of the port. I then discussed the case with Dr. Parks with General surgery who reviewed the images who stated that not much more that he could do except for replace the port. He was able to set the patient up for this on Saturday. He came to the emergency department to talk with the patient and her about this. I also discussed the case with her oncologist who stated that they will wait for the port to be placed before resuming any chemotherapy. Patient was hypertensive however does not appear to have any end-organ damage from this. She is asymptomatic here in the ER. We did discuss hypertension. Informed her that she should buy a blood pressure cuff and take her blood pressure at home and record these values and talk with her primary doctor about potentially any medications. Both her and her expressed understanding and agreement. Discharge Plan Departure Patient Disposition: Home Clinical Impression: Encounter for care related to Port-a-Cath Hypertension Qualifiers: Hypertension type: unspecified Qualified Code(s): I10 - Essential (primary) hypertension Discharge Date/Time: 07/02/19 17:18 Instructions: DI for High Blood Pressure Activity Restrictions/Additional Instructions: I do recommend that you purchase a blood pressure cuff and take your blood pressure 1 time a day like we discussed. Record these values. Contact your primary provider for a follow-up to discuss potential need for medications. You do have an appointment on Saturday to have your power port replaced. Follow the pre procedure instructions given to you by the general surgeon. I did contact your oncologist. He stated that they will hold on any further chemotherapy treatments until your port is placed. Contact his office tomorrow to schedule this. Return to the emergency department for any new or worsening symptoms. Prescriptions: No Action naproxen sodium [Aleve] 220 mg Tablet 220 mg PO BID PRN (Reason: Pain) RF: 0 Lidocaine Viscous 2 % solution 1 applictn MM TID-QID PRN (Reason: pain) Qty: 100 RF: 0 ondansetron HCl [Zofran] 4 mg Tablet 4 mg PO Q6H PRN (Reason: Nausea And Vomiting) Qty: 30 RF: 2 Referrals: Porfirio Lugo MD [Primary Care Provider] -
--- NOTE | 2019-07-02 13:58 | DI.RAD.S_ITS ---
PROCEDURE: XR CHEST 2V INDICATIONS: Eval for location/placement of port in R chest TECHNIQUE: 2 views of the chest were acquired. COMPARISON: [facility], , XR CHEST 1V, 03/02/2019, 12:48. FINDINGS: Surgical changes and devices: Right chest port is seen, no definite interval change in position or appearance since 03/02/19. The tip projects in the upper SVC/right brachiocephalic vein as before. Lungs and pleura: Lungs are clear. No pleural effusions or pneumothorax. Mediastinum: Mediastinal contours are normal. Heart size is normal. Bones and chest wall: No suspicious bony abnormalities. Soft tissues appear unremarkable. IMPRESSION: No acute disease Unchanged appearance of right chest port Dictated by: Bart No M.D. on 07/02/2019 at 14:47 Approved by: Bart No M.D. on 07/02/2019 at 14:53
--- NOTE | 2019-07-02 14:12 | PC.NURSE ---
right CW port a cath inserted. 2 attempts. port a cath is leaking saline subcutaneously. left power port needle in and notified Dr. Banks. pt had the same issure over at Oncology. Port a cath feels it has twisted or turned. there is no blood return. when flushed with saline. fluid leaked out of previous access holes and subcutaneously. Dr. Banks aware. Needle left in only to look at a 2 view Xray. nothing will be infused. Instructed XRay not to infuse via for Fluro until Xray is checked. Dr. Banks aware of the above.
[2019-07-02] MEDS: lisinopriL 10 MG TABLET PO (16:37)
== END 2019-07-02 17:18 | disposition home or self-care (01) ==
PROVIDERS: Emergency Provider Emergency Medicine; Family Provider Internal Medicine Hematology & Oncology; PCP Family Medicine
DX: Z45.2 Encounter for adjustment and management of vascular access device (principal); I10 Essential (primary) hypertension; C34.90 Malignant neoplasm of unspecified part of unspecified bronchus or lung
CPT/HCPCS: 71046; 76000; 93005; 93010; 99284

== ENCOUNTER 2019-07-07 10:21 | Day surgery (SDC) | payer OTHER, SELFPAY ==
--- NOTE | 2019-07-07 | DI.RAD.S_ITS ---
PROCEDURE: XR CHEST 1V INDICATIONS: PORT A CATH TECHNIQUE: One view of the chest was acquired. COMPARISON: [facility], CR, XR CHEST 2V, 07/02/2019, 14:07. FINDINGS: Surgical changes and devices: Interval removal of right chest Port-A-Cath and placement of a left chest Port-A-Cath. Tip projects to superior vena cava. Lungs and pleura: Lungs are clear. No pleural effusions or pneumothorax. Mediastinum: Mediastinal contours appear normal. Heart size is normal. Bones and chest wall: No suspicious bony lesions. Overlying soft tissues appear unremarkable. IMPRESSION: Left chest Port-A-Cath in place with no evidence of pneumothorax. Dictated by: Julio Whitfield M.D. on 07/07/2019 at 14:22 Approved by: Julio Whitfield M.D. on 07/07/2019 at 14:23
[2019-07-07] MEDS: LACTATED RINGERS 1,000 ML 75 ML IV (10:35)
[2019-07-07 10:51] VITALS: BP 170/92; PULSE 60; RESP 20; TEMP 36.8; O2SAT 100; BMI 18.9
--- NOTE | 2019-07-07 11:57 | PM.HP.1 ---
History of Present Illness History of Present Illness Date Patient Seen: 07/07/19 Time Patient Seen: 11:58 Chief complaint: [id number] Narrative: the patient is a woman here for removal of a portacath that re the patient is a womanc hereent for removally of a Port-A-Cath and placement of a new 1.failed and for placement of a new one Patient History Medical History Adenopathy (Acute) Alcoholic cirrhosis (Acute) Anxiety (Acute) Arthritis (Acute) Chronic fatigue (Acute) Current every day smoker (Acute) Depression (Acute) Easy bruisability (Acute) Hepatitis C (Acute) Hypertension (Acute) Impaired vision (Acute) Lung cancer (Acute) Lung cancer metastatic to brain (Acute) Pain (Acute) Port-A-Cath in place (Acute ~2018) Surgical History History of colon surgery (Acute ~08/2016) S/P dissection of cervical lymph nodes (Acute 01/16/19) Family & Social History Family History Mother Cancer Social History: household members spouse Tobacco & Substance use: Tobacco type cigarettes Smoking Status Former smoker alcohol intake former alcohol intake frequency holiday/special occasion Substance Use Type marijuana,amphetamines Meds Home Medications and Allergies Home Medications Medication Instructions Recorded Confirmed Type naproxen sodium [Aleve] 220 mg PO BID PRN 03/02/19 07/07/19 History ondansetron HCl [Zofran] 4 mg PO Q6H PRN #30 tab 03/09/19 07/07/19 Rx Lidocaine Viscous 1 applictn MM TID-QID PRN #100 ml 04/06/19 07/07/19 Rx Allergies Allergy/AdvReac Type Severity Reaction Status Date / Time hydrocodone AdvReac Mild Nausea Verified 07/07/19 11:04 Review of Systems Review of Systems ROS: Yes All systems reviewed with the patient and are negative except as otherwise documented Exam Vital Signs (past 8 hours): - 07/07/19 10:51 Temperature 98.2 F Pulse Rate 60 Respiratory Rate 20 Blood Pressure 170/92 H Pulse Oximetry 100 Oxygen Delivery Method Room Air Narrative Exam Narrative: The patient is in no apparent distress. Some bruising of the right Port-A-Cath site is noted. No rashes of her chest wall. Lungs are clear to auscultation. No rales or rhonchi. Heart regular rate and rhythm without murmur gallop. Patient is alert and oriented. Assessment & Plan Assessment & Plan narrative: Placement for removal Port-A-Cath and placement of a new 1. I may go in her left neck. I have discussed the procedure with her. Risks of bleeding infection DVT arm swelling lung collapse all discussed with her. She appears to understand and wishes to proceed
--- NOTE | 2019-07-07 12:03 | PM.PREOP ---
Pre-operative Note Interval Note History & Physical reviewed/Exam performed by Physician: Yes Changes to H&P: No
[2019-07-07] MEDS: CEFAZOLIN 2 GM/100 ML FROZ.PIGGY IV (12:27)
--- NOTE | 2019-07-07 12:52 | SUR.OPER ---
Supine on padded OR bed, head on pillow, arm padded and tucked at side, legs uncrossed, safety belt at thigh, tape over blanket over lower legs .
[2019-07-07] MEDS: LIDOCAINE 1% 30 ML INJ (13:06)
[2019-07-07] MEDS: HEPARIN 5,000 UNIT, SODIUM CHLORIDE 0.9% 50 ML IV (13:07)
--- NOTE | 2019-07-07 13:41 | PM.OP.1 ---
Operative Date/Time/Diagnoses Date of procedure: 07/07/19 Time of procedure: 13:41 Pre-op diagnosis: Failed Port-A-Cath right chest wall Post-op diagnosis: same Procedure & Clinicians Procedure: Removal of port right infraclavicular fossa and placement of new port on the opposite side. Same procedure as scheduled: Yes Indications: Filled port need of IV access for chemotherapy Surgeon: Nahid Parks Click Yes if Unassisted: Yes Anesthesia Type: General Operative Notes Findings: Tip in the SVC. Port in good position. No pneumothorax. Closure Type: primary Specimen(s): none sent Prosthetic devices, grafts, tissues, transplants, or devices: Removed old port and placed new 1 Applied: catheter Estimated Blood Loss (mL): 10 Blood products transfused: none Procedure in detail: The patient was placed supine on the operating room table and underwent general LMA anesthesia. She was prepped and draped in the usual fashion. Local anesthetic was infiltrated in the room around the right infraclavicular port site. Incision was made through the old scar and carried down level the port port was dissected out along with the catheter. A stitch of 3 0 Vicryl was used it to place around the catheter tunnel. The catheter and port were removed and the stitch tied. Portion of the investing wall around the port was removed with cautery. Subcu was closed with interrupted 3 0 Vicryl. The skin was closed running 4 0 Vicryl subcuticular stitch. Attention was turned to the opposite side the patient was noted to have neck masses bilaterally that would interfere with placement of a neck catheter. Therefore local anesthetic was infiltrated in a field block fashion beneath the left clavicle. Transverse incision is made and a pocket created. Needle was inserted on 1st attempt into the subclavian vein. The Guide wire was passed and the needle removed. The guidewire appeared to go with the neck and had to be manipulated but ultimately we were able to get it to go in the appropriate location into the superior vena cava. The catheter was tapered to appropriate length the port was placed into the pocket after flushing the port and catheter with heparinized saline. The dilator and introducer were passed over the guidewire and the guidewire and dilator removed leaving the introducer in place. The catheter was passed through the introducer and peeled away. The tip was left in the SVC and the catheter appeared to be in good position. The port was secured to the chest wall with interrupted 2-0 silk sutures. The subcu was closed with interrupted 3 0 Vicryl. The skin was closed a running 4 0 Vicryl subcuticular stitch and Steri-Strips. The catheter was once again aspirated and flushed with heparinized saline. It appeared to aspirate and flush smoothly. Mastisol Steri-Strips and Telfa were applied along with Tegaderm. Patient was awakened extubated and taken recovery room good condition. Complications: none Post-operative Condition: stable Disposition: PACU
[2019-07-07 13:42] VITALS: BP 184/106; PULSE 59; RESP 7; TEMP 36.1; O2SAT 96
[2019-07-07 13:46] VITALS: BP 183/107; PULSE 65; RESP 8; O2SAT 98
[2019-07-07 13:51] VITALS: BP 197/102; PULSE 62; RESP 13; O2SAT 96
[2019-07-07 14:06] VITALS: BP 185/94; PULSE 62; RESP 10; O2SAT 99
[2019-07-07 14:46] VITALS: BP 186/97; PULSE 55; RESP 20; TEMP 36.2; O2SAT 95
== END 2019-07-07 14:48 | disposition home or self-care (01) ==
PROVIDERS: Family Provider Internal Medicine Hematology & Oncology; PCP Family Medicine; Referring Provider Family Medicine; Visit Provider Specialist
PROC: (CPT 36561; principal; 2019-07-07 11:45)
DX: T82.598A Other mechanical complication of other cardiac and vascular devices and implants, initial encounter (principal); C34.90 Malignant neoplasm of unspecified part of unspecified bronchus or lung; F17.210 Nicotine dependence, cigarettes, uncomplicated; I10 Essential (primary) hypertension; F41.9 Anxiety disorder, unspecified; K70.30 Alcoholic cirrhosis of liver without ascites
CPT/HCPCS: 36561; 36590; 71045; 76000; C1788; J0690; J1100; J1644; J2250; J2405; J2704; J3010

== ENCOUNTER → 2019-07-23 12:39 | Outpatient (CLI) | payer OTHER, SELFPAY ==
--- NOTE | 2019-07-23 12:40 | DI.MRI.S_ITS ---
PROCEDURE: MR HEAD/BRAIN WO/W CON INDICATIONS: LUNG CANCER WITH BRAIN METASTASIS, FALL 2 WEEKS AGO TECHNIQUE: Noncontrast axial T1 spin echo, axial T2 fast spin echo, sagittal and axial FLAIR, coronal T2 fast spin echo, axial gradient echo, axial diffusion and ADC through the brain. After the administration of contrast, axial and coronal T1 spin echo with fat saturation through the brain. COMPARISON: [facility], NM, NM PET CT FUSION SKULL 2 THIGH, 06/03/2019, 14:47. [facility], MR, MR HEAD/BRAIN WO/W CON, 02/11/2019, 8:52. [facility], MR, MR HEAD/BRAIN WO/W CON, 05/28/2019, 13:14. FINDINGS: Image quality: Excellent. CSF spaces: Basal cisterns are patent. No extra-axial fluid collections. Ventricles are normal in size and shape. Brain: No midline shift. No intracranial bleeds. Previously identified left temporal lobe enhancing mass is stable in appearance including mild vasogenic edema. Nonenhancing signal changes within the cheryl are also stable. There is cerebral volume loss for age. There is periventricular white matter chronic small vessel ischemic change. The brainstem appears normal. Diffusion-weighted images demonstrate no acute ischemic insults. No chronic ischemic insults. Normal intravascular flow voids are present. Skull and face: Calvarial marrow is normal in signal. Orbits appear normal. Sinuses: Sinuses are clear. Minimal fluid is present within the mastoid air cells, right greater than left. IMPRESSION: 1. Unchanged appearance of previously identified areas of intracranial disease. No new areas are identified and no interval progression. Dictated by: Sophia Solomon M.D. on 07/23/2019 at 14:16 Approved by: Sophia Solomon M.D. on 07/23/2019 at 14:21
== END ==
PROVIDERS: Family Provider Internal Medicine Hematology & Oncology; PCP Family Medicine; Referring Provider Internal Medicine Hematology & Oncology; Visit Provider Internal Medicine Hematology & Oncology
DX: C34.90 Malignant neoplasm of unspecified part of unspecified bronchus or lung (principal); C79.31 Secondary malignant neoplasm of brain
CPT/HCPCS: 70553

== ENCOUNTER → 2020-01-07 10:59 | Outpatient (CLI) | payer OTHER, SELFPAY ==
--- NOTE | 2020-01-07 11:34 | DI.MRI.S_ITS ---
PROCEDURE: MR HEAD/BRAIN WO/W CON INDICATIONS: lung cancer with brain metastastasis TECHNIQUE: Noncontrast axial T1 spin echo, axial T2 fast spin echo, sagittal and axial FLAIR, coronal T2 fast spin echo, axial gradient echo, axial diffusion and ADC through the brain. After the administration of contrast, axial and coronal 3D VIBE or T1 spin echo with fat saturation through the brain. COMPARISON: [facility], MR, MR HEAD/BRAIN WO/W CON, 07/23/2019, 12:59. [facility], MR, MR HEAD/BRAIN WO/W CON, 02/11/2019, 8:52. [facility], MR, MR HEAD/BRAIN WO/W CON, 05/28/2019, 13:14. FINDINGS: Image quality: Excellent. CSF Spaces: Basal cisterns are patent. No extra-axial fluid collections. Ventricles are normal in size and shape. Brain: No midline shift. No intracranial bleeds. Metastatic lesion involving the left temporal lobe is slightly decreased in size compared to May 28, 2019 and July 23, 2019 measuring 2 millimeters x 4 millimeters in the current study. Minimal vasogenic edema identified adjacent to the enhancing metastatic lesion in the left temporal lobe which is slightly decreased compared to 05/28/2019 and July 23, 2019. . No enhancement or vasogenic edema is associated with the previously identified left pontine lesion. In fluid areas of increased T2 signal noted in the cerebral hemispheres possibly related to post radiation change. Diffusion-weighted images demonstrate no acute ischemic insults. No chronic ischemic insults. Normal intravascular flow voids are present. Skull and face: Calvarial marrow is normal in signal. Orbits appear normal. Sinuses: Sinuses and mastoids appear clear. IMPRESSION: 1. Small enhancing left temporal lobe metastatic lesion slightly decreased in size compared to May 28, 2019 and July 23, 2019. 2. Exam otherwise stable compared to prior examinations. No new metastatic lesions identified. Dictated by: Jaja Ahumada MD, PhD on 01/07/2020 at 12:51 Approved by: Jaja Ahumada MD, PhD on 01/07/2020 at 13:02
== END ==
PROVIDERS: Family Provider Internal Medicine Hematology & Oncology; PCP Family Medicine; Referring Provider Family Medicine; Visit Provider Internal Medicine Hematology & Oncology
DX: C34.90 Malignant neoplasm of unspecified part of unspecified bronchus or lung (principal); C79.31 Secondary malignant neoplasm of brain
CPT/HCPCS: 70553

== ENCOUNTER → 2020-07-08 11:10 | Outpatient (CLI) | payer OTHER, SELFPAY ==
--- NOTE | 2020-07-08 11:12 | DI.MRI.S_ITS ---
PROCEDURE: MR HEAD/BRAIN WO/W CON INDICATIONS: lung cancer TECHNIQUE: Noncontrast axial T1 spin echo, axial T2 fast spin echo, sagittal and axial FLAIR, coronal T2 fast spin echo, axial gradient echo, axial diffusion and ADC through the brain. After the administration of contrast, axial and coronal T1 spin echo with fat saturation through the brain. COMPARISON: [facility], MR, MR HEAD/BRAIN WO/W CON, 07/23/2019, 12:59. [facility], MR, MR HEAD/BRAIN WO/W CON, 05/28/2019, 13:14. [facility], MR, MR HEAD/BRAIN WO/W CON, 02/11/2019, 8:52. [facility], MR, MR HEAD/BRAIN WO/W CON, 01/07/2020, 12:18. FINDINGS: Image quality: Excellent. CSF spaces: Basal cisterns are patent. No extra-axial fluid collections. Ventricles are normal in size and shape. Brain: As identified on prior exam, there is a 2 x 2 mm focus of enhancement within the left temporal lobe seen on series 13, image 65. Appearance of vasogenic edema is unchanged. There is cerebral volume loss for age. There is periventricular white matter chronic small vessel ischemic change. There are no areas of enhancement identified within the cheryl. Foci of hyperintense signal are present suggestive of microvascular ischemia as well as previous enhancing metastatic focus. Appearance is stable compared to prior exam. No new areas of abnormal enhancement are identified. Diffusion-weighted images demonstrate no acute ischemic insults. No chronic ischemic insults. Normal intravascular flow voids are present. Skull and face: Calvarial marrow is normal in signal. Orbits appear normal. Sinuses: Sinuses and mastoids appear clear. IMPRESSION: 1. Stable appearance of punctate enhancement with vasogenic edema within the left temporal lobe, without appreciable interval change. 2. No new areas of abnormal enhancement are present. Dictated by: Sophia Solomon M.D. on 07/08/2020 at 14:44 Approved by: Sophia Solomon M.D. on 07/08/2020 at 14:50
--- NOTE | 2020-07-08 11:14 | DI.CT.S_ITS ---
PROCEDURE: CT CHEST WO CON INDICATIONS: lung cancer with mets to brain and bone TECHNIQUE: Noncontrast 5 mm thick sections acquired from the pulmonary apices to the posterior costophrenic angles. 1 mm lung window, 5 mm thick coronal and sagittal and 7 mm axial MIP reformats were then acquired. For radiation dose reduction, the following was used: automated exposure control, adjustment of mA and/or kV according to patient size. COMPARISON: [facility], [place], [place] PET CT FUSION SKULL 2 THIGH, 06/03/2019, 14:47. [facility], CT, CT CHEST W CON, 01/06/2019, 10:28. FINDINGS: Scattered subsegmental atelectasis and/or scarring. No focal consolidation. Ill-defined scattered pulmonary nodules, for example in the right middle lobe measuring 6 mm on image 168/3. This appears new. Additional cavitary nodule, versus bulla seen in the left lung base on image 166/3. This appears new since 06/03/19. Ill-defined nodule measuring 7 mm seen in the left upper lobe on image 115/3. This appears new. Additional cavitary nodule measuring 6 mm seen on image 189/3 in the right superior segment Pleura: No pleural effusions or pneumothorax. Airway thickening in keeping with nonspecific bronchitis and/or reactive airways disease. Mediastinum: Heart size is normal. Coronary artery calcifications are present. No pericardial effusion. 8 mm right paratracheal lymph node seen on image 22/2, which is decreased in size. Previously this measured 15 mm on 06/03/19 Thyroid unremarkable. Left chest port. Aorta: Normal. Pulmonary arteries: Normal. Esophagus: Normal. IMPRESSION: Interval development of multiple ill-defined bilateral pulmonary nodules some of which demonstrate cavitary appearance. Differential includes pulmonary metastases, potentially with internal a [place] [employer] cyst, although other possibilities such as septic emboli in the differential and recommend clinical correlation. These appear new since 06/03/19. Interval improvement in right paratracheal lymph node as above. Dictated by: Bart No M.D. on 07/08/2020 at 11:49 Approved by: Bart No M.D. on 07/08/2020 at 12:12
== END ==
PROVIDERS: Family Provider Internal Medicine Hematology & Oncology; PCP Family Medicine; Referring Provider Internal Medicine Hematology & Oncology; Visit Provider Internal Medicine Hematology & Oncology
DX: C34.32 Malignant neoplasm of lower lobe, left bronchus or lung (principal); C79.51 Secondary malignant neoplasm of bone; C79.31 Secondary malignant neoplasm of brain; G93.6 Cerebral edema; R91.8 Other nonspecific abnormal finding of lung field
CPT/HCPCS: 70553; 71250; A9579

== ENCOUNTER → 2020-09-29 09:19 | Outpatient (CLI) | payer OTHER, SELFPAY ==
--- NOTE | 2020-09-29 09:20 | DI.MRI.S_ITS ---
PROCEDURE: MR HEAD/BRAIN WO/W CON INDICATIONS: lung cancer, brain mets TECHNIQUE: Noncontrast axial T1 spin echo, axial T2 fast spin echo, sagittal and axial FLAIR, coronal T2 fast spin echo, axial gradient echo, axial diffusion and ADC through the brain. After the administration of contrast, axial and coronal T1 spin echo with fat saturation through the brain. COMPARISON: [facility], MR, MR HEAD/BRAIN WO/W CON, 01/07/2020, 12:18. [facility], MR, MR HEAD/BRAIN WO/W CON, 07/23/2019, 12:59. [facility], MR, MR HEAD/BRAIN WO/W CON, 07/08/2020, 12:27. FINDINGS: Image quality: This examination is limited by involuntary motion artifact. CSF spaces: Basal cisterns are patent. No extra-axial fluid collections. Ventricles are normal in size and shape. Brain: There is a tiny focus of enhancement again seen within the left posterior temporal lobe, as on series 13, image 15, which measures 3 mm. There is surrounding vasogenic edema. This is similar to the prior examination due 07/08/2020. No new masses are seen. On the hemosiderin sensitive sequence, there are several areas of blooming artifact, which are likely related to small areas of remote hemorrhage. They are not significantly changed compared to the prior MRI. No midline shift. There is cerebral volume loss for age. There is periventricular white matter chronic small vessel ischemic change. The brainstem appears normal. Diffusion-weighted images demonstrate no acute ischemic insults. Areas of remote, chronic infarction can be seen, including within the cheryl. Normal intravascular flow voids are present. Skull and face: Calvarial marrow is normal in signal. Orbits appear normal. Sinuses: Sinuses and mastoids appear clear. IMPRESSION: Stable focus of enhancement seen involving the left posterior temporal lobe, with surrounding vasogenic edema, which is attributed to metastatic disease. No new areas of abnormal enhancement are detected. Note is made of underlying brain parenchymal volume loss and chronic small vessel ischemic changes. Dictated by: Trevin Barreto M.D. on 09/29/2020 at 9:49 Approved by: Trevin Barreto M.D. on 09/29/2020 at 9:53
--- NOTE | 2020-09-29 09:35 | DI.CT.S_ITS ---
PROCEDURE: CT CHEST WO CON INDICATIONS: lung cancer TECHNIQUE: Noncontrast 5 mm thick sections acquired from the pulmonary apices to the posterior costophrenic angles. 1 mm lung window, 5 mm thick coronal and sagittal and 7 mm axial MIP reformats were then acquired. For radiation dose reduction, the following was used: automated exposure control, adjustment of mA and/or kV according to patient size. COMPARISON: [facility], CT, CT CHEST WO CON, 07/08/2020, 11:25. FINDINGS: Image quality: Excellent. Lungs and pleura: No acute air space opacities, and there has been mild improvement in the pattern of patchy alveolar airspace disease seen within the lung parenchyma, in some cases adjacent to bronchi that appear mildly inflamed. No new pulmonary solid mass lesion is seen. Two areas of air-filled small cysts within the lung parenchyma are stir stable over time. No new similar air-filled pneumatocele is a are found. No pleural effusions or pneumothorax. Central and peripheral airways are patent and normal in caliber. Mediastinum: Heart size is normal. No pericardial effusion. No mediastinal adenopathy by size criteria. The high density right paratracheal lymph node seen on prior CT scanning has slightly diminished in size from 11 mm to 8 mm. Thoracic aorta and central pulmonary arteries are normal in size. Esophagus is normal in caliber. No hiatal hernia. Bones and chest wall: No suspicious bony lesions. No vertebral body compression fractures. No axillary or supraclavicular adenopathy by size criteria. Thyroid gland is not well seen by this noncontrast technique. Abdomen: Visualized upper abdominal solid organs and bowel loops appear normal in the absence of contrast. IMPRESSION: The pattern of alveolar airspace disease within the lung parenchyma is patchy, and in some cases is adjacent to small bronchi that appear mildly inflamed. The appearance is considered more likely inflammatory than malignant in origin and could represent a manifestation of mild opportunistic infection. There are 2 separate small foci of what appear to be pneumatocele is a with a slight degree of adjacent alveolar edema. These have slightly improved in appearance also, and a solid mass lesion or solid lesion becoming cavitary is not found. A high density lymph node in the right paratracheal middle mediastinum previously had measured 11 mm and now measures 8 mm. This improvement may indicate the original larger node was reactive in origin. No new adenopathy is seen. Dictated by: Reyes Sheriff M.D. on 09/29/2020 at 11:11 Approved by: Reyes Sheriff M.D. on 09/29/2020 at 11:19
== END ==
PROVIDERS: Family Provider Internal Medicine Hematology & Oncology; Referring Provider Internal Medicine Hematology & Oncology; Visit Provider Internal Medicine Hematology & Oncology
DX: C34.90 Malignant neoplasm of unspecified part of unspecified bronchus or lung (principal); C79.31 Secondary malignant neoplasm of brain
CPT/HCPCS: 70553; 71250

== ENCOUNTER → 2021-02-03 11:29 | Outpatient (CLI) | payer OTHER, SELFPAY ==
--- NOTE | 2021-02-03 11:30 | DI.MRI.S_ITS ---
PROCEDURE: MR HEAD/BRAIN WO/W CON INDICATIONS: lung cancer TECHNIQUE: Noncontrast axial T1 spin echo, axial T2 fast spin echo, sagittal and axial FLAIR, coronal T2 fast spin echo, axial gradient echo, axial diffusion and ADC through the brain. After the administration of contrast, axial and coronal 3D VIBE or T1 spin echo with fat saturation through the brain. COMPARISON: [facility], MR, MR HEAD/BRAIN WO/W CON, 07/08/2020, 12:27. [facility], MR, MR HEAD/BRAIN WO/W CON, 09/29/2020, 9:43. FINDINGS: Image quality: Excellent. CSF Spaces: Basal cisterns are patent. No extra-axial fluid collections. Ventricles are normal in size and shape. Brain: Tiny 2 millimeter focus of enhancement at the cortical surface of the left posterior temporal lobe on series 13, image 75 is unchanged from the prior study. Minimal adjacent increased T2 signal which may represent vasogenic edema versus gliosis is unchanged. There is no additional abnormal intracranial enhancement identified. No restricted diffusion to indicate recent ischemia. No unexpected intracranial susceptibility. Global cerebral volume loss and advanced chronic microvascular ischemic changes again noted. Skull and face: Calvarial marrow is normal in signal. Orbits appear normal. Sinuses: Sinuses and mastoids appear clear. IMPRESSION: Stable examination. Punctate focus of enhancement with some associated increased T2 signal in the left posterior temporal lobe is unchanged. The stability of this lesion suggests that it may vickie may represent treatment related changes as opposed to residual disease, although a component of viable residual malignancy cannot be strictly excluded. No additional abnormal intracranial enhancement. Dictated by: Jarad Keene M.D. on 02/03/2021 at 13:03 Approved by: Jarad Keene M.D. on 02/03/2021 at 13:09
--- NOTE | 2021-02-03 13:03 | DI.CT.S_ITS ---
PROCEDURE: CT CHEST WO CON INDICATIONS: Lung cancer TECHNIQUE: Noncontrast 5 mm thick sections acquired from the pulmonary apices to the posterior costophrenic angles. 1 mm lung window, 5 mm thick coronal and sagittal and 7 mm axial MIP reformats were then acquired. For radiation dose reduction, the following was used: automated exposure control, adjustment of mA and/or kV according to patient size. COMPARISON: [facility], CT, CT CHEST WO [facility], 09/29/2020, 9:26. FINDINGS: Image quality: Excellent. Lungs and pleura: No acute air space opacities. Patchy airspace opacity seen on the prior CT on 09/29/2020 have resolved. No pleural effusions or pneumothorax. There is mild bronchiectasis in the right middle lobe centrally. Mediastinum: Heart size is normal. The coronary arteries have atherosclerotic calcifications. No pericardial effusion. A previously described right paratracheal and precarinal high density lymph node is unchanged and is within normal size limits. No mediastinal adenopathy by size criteria. Thoracic aorta and central pulmonary arteries are normal in size. Esophagus is normal in caliber. No hiatal hernia. Bones and chest wall: No suspicious bony lesions. No vertebral body compression fractures. No axillary or supraclavicular adenopathy by size criteria. Thyroid gland is normal. Abdomen: Visualized upper abdominal solid organs and bowel loops appear normal in the absence of contrast. IMPRESSION: 1. No evidence of recurrence neoplasm. 2. Patchy alveolar airspace disease described on the prior CT on 09/29/2020 has resolved. Dictated by: Ankur Flores M.D. on 02/03/2021 at 13:29 Approved by: Ankur Flores M.D. on 02/03/2021 at 13:35
== END ==
PROVIDERS: Family Provider Internal Medicine Hematology & Oncology; PCP Family Medicine; Referring Provider Internal Medicine Hematology & Oncology; Visit Provider Internal Medicine Hematology & Oncology
DX: C34.32 Malignant neoplasm of lower lobe, left bronchus or lung (principal); C79.51 Secondary malignant neoplasm of bone; C79.31 Secondary malignant neoplasm of brain; C79.71 Secondary malignant neoplasm of right adrenal gland; C77.8 Secondary and unspecified malignant neoplasm of lymph nodes of multiple regions
CPT/HCPCS: 70553; 71250

== ENCOUNTER → 2021-10-19 11:32 | Outpatient (CLI) | payer OTHER, SELFPAY ==
--- NOTE | 2021-10-19 11:32 | DI.MRI.S_ITS ---
PROCEDURE: MR HEAD/BRAIN WO/W CON INDICATIONS: metastatic lung cancer TECHNIQUE: Noncontrast axial T1 spin echo, axial T2 fast spin echo, sagittal and axial FLAIR, coronal T2 fast spin echo, axial gradient echo, axial diffusion and ADC through the brain. After the administration of contrast, axial and coronal and sagittal T1 spin echo with fat saturation through the brain. COMPARISON: [facility], MR, MR HEAD/BRAIN WO/W CON, 02/03/2021, 12:07. [facility], MR, MR HEAD/BRAIN WO/W CON, 07/23/2019, 12:59. [facility], MR, MR HEAD/BRAIN WO/W CON, 01/07/2020, 12:18. [facility], MR, MR HEAD/BRAIN WO/W CON, 07/08/2020, 12:27. [facility], MR, MR HEAD/BRAIN WO/W CON, 09/29/2020, 9:43. [facility], CT, CT HEAD WITHOUT CONTRAST, 09/20/2021, 2:20. FINDINGS: Image quality: This examination is limited by involuntary motion artifact. CSF spaces: Basal cisterns are patent. No extra-axial fluid collections. Ventricles are normal in size and shape. Brain: On the prior report, there is mention of a small focus of abnormal enhancement involving the posterior left temporal lobe. This is not definitely seen on the current study. No masses or areas of abnormal enhancement can be seen. No midline shift. There is cerebral volume loss for age. There is periventricular white matter chronic small vessel ischemic change. The brainstem appears normal. Diffusion-weighted images demonstrate no acute ischemic insults. 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 Normal intravascular flow voids are present. Calcification can be seen involving the basal ganglia, which is considered to be normal for age. Skull and face: Calvarial marrow is normal in signal. Orbits appear normal. Sinuses: Sinuses and mastoids appear clear. IMPRESSION: Motion limited study demonstrating no findings of masses or abnormal enhancement. The previously described area of mild enhancement involving the left posterior temporal lobe is not seen on the current study. Dictated by: Trevin Barreto M.D. on 10/19/2021 at 11:30 Approved by: Trevin Barreto M.D. on 10/19/2021 at 11:33
--- NOTE | 2021-10-19 11:32 | DI.CT.S_ITS ---
PROCEDURE: CT CHEST ABD PEL W CON INDICATIONS: metastatic lung cancer TECHNIQUE: After the administration of oral and intravenous contrast, axial sections acquired from the supraclavicular neck to the pubic symphysis. Coronal and sagittal reformats were performed. For radiation dose reduction, the following was used: automated exposure control, adjustment of mA and/or kV according to patient size. COMPARISON:[facility], CT, CT CHEST W CON, 01/06/2019, 10:28. CT, CT CHEST WO CON, 07/08/2020, 11:25. [place], [place], [place] PET CT FUSION SKULL 2 THIGH, 02/25/2019, 16:01. [place], [place] PET CT FUSION SKULL 2 THIGH, 06/03/2019, 14:47. [facility], CT, CT CHEST WO CON, 09/29/2020, 9:26. [facility], CT, CT CHEST WO CON, 02/03/2021, 12:38. FINDINGS: Image quality: Excellent. CHEST: Lower Neck: No enlarged lymph nodes. Thyroid: Within normal limits. Axillae: No enlarged lymph nodes. Chest Wall: Unremarkable. There is a Port-A-Cath in the left anterior chest. Lungs and Airways: No recurrent lung mass. Moderate centrilobular emphysema. No consolidation or suspicious nodules. Pleura: No pneumothorax or pleural effusions. Heart: Heart size is normal. No pericardial effusion. Mild coronary artery calcification. Thoracic Vessels: The aorta and pulmonary arteries demonstrate normal size. Mediastinum and Paula: There is a 0.9 cm high-density right paratracheal lymph node, stable in size. Esophagus: No wall thickening. No hiatal hernia. ABDOMEN: Liver: Unremarkable. Gallbladder: Unremarkable. Biliary ducts: Unremarkable. Pancreas: Unremarkable. Spleen: Unremarkable. Adrenal Glands: No recurrent right adrenal mass. Probable cyst 0.6 cm small left adrenal nodule, unchanged. Kidneys and Ureters: Unremarkable. Stomach and Bowel: Stomach, small bowel loops, and colon are unremarkable. Peritoneum: No abnormal intraperitoneal fluid. No free air. Ventral Wall: Tiny fat containing umbilical hernia. Abdominal Nodes: No retroperitoneal or mesenteric adenopathy by size criteria. A 0.9 cm right retrocrural lymph node is stable. Vessels: Aorta and inferior vena cava are normal in size. PELVIS: Pelvic Organs: Unremarkable. Bladder: Unremarkable. Pelvic Nodes: No enlarged lymph nodes. Miscellaneous: No inguinal hernias are seen. Bones: Postsurgical changes in the proximal humerus. IMPRESSION: 1. No evidence for recurrent disease. Dictated by: Estefania Daily M.D. on 10/19/2021 at 15:52 Approved by: Estefania Daily M.D. on 10/19/2021 at 16:17
== END ==
PROVIDERS: Family Provider Internal Medicine Hematology & Oncology; PCP Physician Assistant; Referring Provider Internal Medicine Hematology & Oncology; Visit Provider Internal Medicine Hematology & Oncology
DX: C34.90 Malignant neoplasm of unspecified part of unspecified bronchus or lung (principal); C91.10 Chronic lymphocytic leukemia of B-cell type not having achieved remission
CPT/HCPCS: 70553; 71260; 74177; A9579; Q9967

== ENCOUNTER → 2022-03-19 10:45 | Outpatient (CLI) | payer OTHER, SELFPAY ==
--- NOTE | 2022-03-19 10:46 | DI.CT.S_ITS ---
PROCEDURE: CT CHEST ABD PEL W CON INDICATIONS: metatatic lung cancer, now with right upper abdominal pain TECHNIQUE: After the administration of oral and intravenous contrast, axial sections acquired from the supraclavicular neck to the pubic symphysis. Coronal and sagittal reformats were performed. For radiation dose reduction, the following was used: automated exposure control, adjustment of mA and/or kV according to patient size. COMPARISON: [facility], CT, CT CHEST ABD PEL W CON, 10/19/2021, 13:48. FINDINGS: Image quality: Excellent. CHEST: Lower Neck: No enlarged lymph nodes. Thyroid: Not visualized. Axillae: No enlarged lymph nodes. Chest Wall: There is a left Port-A-Cath, the tip of which is at the cavoatrial junction. Lungs and Airways: There is mild centrilobular emphysema with an apical predominance. Mild atelectasis or scar is present along the medial aspect of the right middle lobe, unchanged from the study dated October 19, 2021. No acute airspace opacities. No new pulmonary nodules. Pleura: No pneumothorax or pleural effusions. Heart: Heart size is normal. No pericardial effusion. Thoracic Vessels: The aorta and pulmonary arteries demonstrate normal size. Mediastinum and Paula: No enlarged lymph nodes. Esophagus: No wall thickening. No hiatal hernia. ABDOMEN: Liver: Unremarkable. Gallbladder: Unremarkable. Biliary ducts: Unremarkable. Pancreas: Unremarkable. Spleen: Unremarkable. Adrenal Glands: Unremarkable. Kidneys and Ureters: Unremarkable. Stomach and Bowel: Stomach, small bowel loops, and colon are unremarkable. The appendix is thin walled. Peritoneum: No abnormal intraperitoneal fluid. No free air. Ventral Wall: No hernia. Abdominal Nodes: No retroperitoneal or mesenteric adenopathy by size criteria. Vessels: Aorta and inferior vena cava are normal in size. There are scattered atheromatous calcifications throughout the aorta and iliac arteries bilaterally. PELVIS: Pelvic Organs: Unremarkable. Bladder: Unremarkable. Pelvic Nodes: No enlarged lymph nodes. Miscellaneous: No inguinal hernias are seen. Bones: Unremarkable. IMPRESSION: 1. No findings to suggest tumor recurrence or new metastasis. 2. No acute intra-abdominal findings normal appendix. 3. No findings to explain right upper quadrant pain. Dictated by: Sirena Muniz M.D. on 03/19/2022 at 14:32 Approved by: Sirena Muniz M.D. on 03/19/2022 at 14:41
== END ==
PROVIDERS: Family Provider Internal Medicine Hematology & Oncology; PCP Physician Assistant; Referring Provider Internal Medicine Hematology & Oncology; Visit Provider Internal Medicine Hematology & Oncology
DX: C34.32 Malignant neoplasm of lower lobe, left bronchus or lung (principal); R10.11 Right upper quadrant pain
CPT/HCPCS: 71260; 74177; Q9967

== ENCOUNTER → 2022-08-10 10:32 | Outpatient (CLI) | payer MEDICARE, SELFPAY ==
--- NOTE | 2022-08-10 10:34 | DI.MRI.S_ITS ---
PROCEDURE: MR HEAD/BRAIN WO/W CON INDICATIONS: lung cancer with brain met TECHNIQUE: Noncontrast axial T1 spin echo, axial T2 fast spin echo, sagittal and axial FLAIR, coronal T2 fast spin echo, axial gradient echo, axial diffusion and ADC through the brain. After the administration of contrast, axial and coronal and sagittal T1 spin echo with fat saturation through the brain. COMPARISON: [facility], MR, MR HEAD/BRAIN WO/W CON, 10/19/2021, 12:01. [facility], CT, CT HEAD WITHOUT CONTRAST, 09/20/2021, 2:20. [facility], MR, MR HEAD/BRAIN WO/W CON, 02/03/2021, 12:07. [facility], MR, MR HEAD/BRAIN WO/W CON, 09/29/2020, 9:43. [facility], CT, CT CHEST ABD PEL W CON, 08/10/2022, 12:15. FINDINGS: Image quality: Diagnostic CSF spaces: Basal cisterns are patent. No extra-axial fluid collections. Ventricles are prominent size, yet symmetric and stable from the prior examination. Brain: No midline shift. No intracranial bleeds or masses. No abnormal intracranial enhancement. There is cerebral volume loss for age. There is periventricular white matter chronic small vessel ischemic change, including within the cheryl. The brainstem appears normal. Diffusion-weighted images demonstrate no acute ischemic insults. No chronic ischemic insults. Normal intravascular flow voids are present. Relatively prominent perivascular spaces are noted. Skull and face: Calvarial marrow is normal in signal. Orbits appear normal. Sinuses: Sinuses and mastoids appear clear. IMPRESSION: Motion limited study, yet without óscar findings of intracranial metastatic disease. Dictated by: Trevin Barreto M.D. on 08/10/2022 at 12:53 Approved by: Trevin Barreto M.D. on 08/10/2022 at 12:56
--- NOTE | 2022-08-10 10:34 | DI.CT.S_ITS ---
PROCEDURE: CT CHEST ABD PEL W CON INDICATIONS: lung cancer TECHNIQUE: After the administration of oral and intravenous contrast, axial sections acquired from the supraclavicular neck to the pubic symphysis. Coronal and sagittal reformats were performed. For radiation dose reduction, the following was used: automated exposure control, adjustment of mA and/or kV according to patient size. COMPARISON: [facility], MR, MR HEAD/BRAIN WO/W CON, 02/11/2019, 8:52. NM, NM PET CT FUSION SKULL 2 THIGH, 06/03/2019, 14:47. NM, NM PET CT FUSION SKULL 2 THIGH, 02/25/2019, 16:01. [facility], MR, MR HEAD/BRAIN WO/W CON, 08/10/2022, 13:08. [facility], CT, CT CHEST ABD PEL W CON, 03/19/2022, 12:15. FINDINGS: Image quality: Excellent. CHEST: Lower Neck: No enlarged lymph nodes. Thyroid: Atrophic. Axillae: No enlarged lymph nodes. Chest Wall: Unremarkable. Lungs and Airways: Mild emphysema. No consolidation or suspicious nodules. Mild emphysema. Pleura: No pneumothorax or pleural effusions. Heart: Heart size is normal. No pericardial effusion. Thoracic Vessels: The aorta and pulmonary arteries demonstrate normal size. Mediastinum and Paula: No enlarged lymph nodes. Esophagus: No wall thickening. Small hiatal hernia. ABDOMEN: Liver: Unremarkable. Gallbladder: Unremarkable. Biliary ducts: Unremarkable. Pancreas: Unremarkable. Spleen: Unremarkable. Adrenal Glands: There is a 0.7 cm left adrenal nodule. Kidneys and Ureters: Unremarkable. Stomach and Bowel: There is gastric wall thickening although stomach is not fully distended. Mild thickening of 2nd and 3rd portion of duodenum. Small bowel loops, and colon are unremarkable. Peritoneum: No abnormal intraperitoneal fluid. No free air. Ventral Wall: Tiny fat containing umbilical hernia. Abdominal Nodes: No retroperitoneal or mesenteric adenopathy by size criteria. Vessels: Aorta and inferior vena cava are normal in size. PELVIS: Pelvic Organs: Unremarkable. Bladder: Unremarkable. Pelvic Nodes: No enlarged lymph nodes. Miscellaneous: No inguinal hernias are seen. Bones: Sclerotic bone lesions in T3, T4, T5 and T6 are new since the last exam, consistent with osseous metastases. IMPRESSION: 1. New sclerotic bone lesions involving T3, T4, T5 and T6, consistent with osseous metastases. Recommend MRI with and without contrast for further evaluation. 2. No lymphadenopathy in thorax, abdomen or pelvis. 3. No recurrent lung lesions. 4. There is gastric wall thickening and thickening of duodenum suggesting gastritis/duodenitis. 5. A 0.7 cm indeterminate left adrenal nodule. Dictated by: Estefania Daily M.D. on 08/10/2022 at 14:03 Approved by: Estefania Daily M.D. on 08/10/2022 at 14:17
== END ==
PROVIDERS: Family Provider Internal Medicine Hematology & Oncology; PCP Physician Assistant; Referring Provider Internal Medicine Hematology & Oncology; Visit Provider Internal Medicine Hematology & Oncology
DX: C79.31 Secondary malignant neoplasm of brain (principal); C34.90 Malignant neoplasm of unspecified part of unspecified bronchus or lung; E03.9 Hypothyroidism, unspecified; M89.9 Disorder of bone, unspecified; E27.9 Disorder of adrenal gland, unspecified
CPT/HCPCS: 70553; 71260; 74177; Q9967

== ENCOUNTER 2023-02-04 18:42 | Emergency (ER) | payer MEDICARE, SELFPAY ==
[2023-02-04 19:22] VITALS: BP 184/89; PULSE 66; RESP 16; TEMP 36.8; O2SAT 97; BMI 21.6
--- NOTE | 2023-02-04 19:28 | DI.RAD.S_ITS ---
PROCEDURE: XR FOREARM LT 2V INDICATIONS: fall with deformity to left wrist TECHNIQUE: 2 views of the forearm were acquired. COMPARISON: None. FINDINGS: Bones: Acute impacted fracture involving distal radius is seen with dorsal and lateral displacement at fracture site . Prior fixation of distal humeral shaft and 5th proximal phalangeal shaft is seen. No other fracture or dislocation. No suspicious bony lesions. Soft tissues: No suspicious soft tissue calcifications or masses. IMPRESSION: Acute impacted and displaced distal radial fracture as above. No proximal to mid forearm fracture. Dictated by: Tu Nance M.D. on 02/04/2023 at 20:09 Approved by: Tu Nance M.D. on 02/04/2023 at 20:11
--- NOTE | 2023-02-04 19:28 | DI.RAD.S_ITS ---
PROCEDURE: XR WRIST LT MIN 3V INDICATIONS: fall with deformity to left wrist TECHNIQUE: 4 views of the wrist were acquired. COMPARISON: None. FINDINGS: Bones: Acute impacted fracture involving distal radial shaft is seen with dorsal and lateral displacement and angulation at fracture site and up to 1.3 cm overlapping. There is also possible nondisplaced or minimally displaced fracture involving ulnar styloid base. Prior internal fixation of 5th proximal phalangeal shaft is seen. Diffuse osteopenia. Osteoarthritic changes are noted throughout wrist joints. No suspicious bony lesions. Scaphoid view: Scaphoid is intact. Soft tissues: No suspicious soft tissue calcifications. IMPRESSION: Acute impacted, displaced and angulated fracture involving distal radius as above. Suggestion of minimally displaced ulnar styloid fracture. Diffuse osteopenia and left wrist joint osteoarthritis. Dictated by: Tu Nance M.D. on 02/04/2023 at 20:12 Approved by: Tu Nance M.D. on 02/04/2023 at 20:13
--- NOTE | 2023-02-04 19:47 | ED_ITS ---
HPI - Extremity Injury (Upper) General Chief Complaint: Extremity Injury, Upper Stated Complaint: lt wrist inj Time Seen by Provider: 02/04/23 19:47 Source: patient and family Mode of arrival: Wheelchair Limitations: no limitations History of Present Illness HPI narrative: This is a 67-year-old female with complaint of left wrist injury. Patient was at home she states she lost her balance and fell backwards. She does fall sometimes. Patient states she landed on her left arm and has pain deformity. She denies any sensation. She can move all her fingers. She denies injury elsewhere. Denies headache, neck pain or back pain, no chest pain or shortness of breath, no nausea or vomiting, no abdominal back or flank pain. No other injuries otherwise. Patient is not anticoagulated. She was receiving treatment for lung cancer completed 3 years of chemotherapy and stopped in June under the direction of her oncologist. She has a history of hypertension, hypothyroidism and has a port in place from her prior chemo treatment. Patient had prior orthopedic treatment for pinky finger fracture through [facility] orthopedics. They state that hydrocodone makes her nauseated. Former tobacco, occasional alcohol, history of marijuana and amphetamines. She and her live on [facility]. Related Data Home Medications Medication Instructions Recorded Confirmed naproxen sodium 220 mg tablet 220 mg PO BID PRN Pain 03/02/19 10/04/22 (Aleve) oxycodone-acetaminophen 5 mg-325 1 tab PRN PRN Pain (Scale Score 10/12/21 10/04/22 mg tablet 4-6) Previous Rx's Medication Instructions Recorded clonidine HCl 0.1 mg tablet 0.1 mg PO DAILY PRN pre-procedure 11/09/20 #10 tabs lorazepam 0.5 mg tablet 0.5 mg PO DAILY PRN anxiety #4 tabs 11/09/20 lidocaine-prilocaine 2.5 %-2.5 % 1 applic topical PRN PRN pain #30 08/03/21 topical cream grams levothyroxine 50 mcg tablet 50 mcg PO DAILY hypothyroidism #30 06/07/22 tabs lisinopril 10 mg tablet 10 mg PO DAILY #30 tabs 06/07/22 levothyroxine 75 mcg tablet 75 mcg PO DAILY Hypothyroidism #30 10/04/22 tabs oxycodone-acetaminophen 5 mg-325 1 tab PO QID PRN pain #14 tabs 02/04/23 mg tablet (Percocet) Allergies Allergy/AdvReac Type Severity Reaction Status Date / Time hydrocodone AdvReac Mild Nausea Verified 06/26/21 16:06 Review of Systems Review of Systems ROS Unobtainable: All systems reviewed & are unremarkable except as noted in HPI and below Patient History Medical History Malignant neoplasm of unspecified site of unspecified female breast Easy bruisability Pain Port-A-Cath in place (~2018) Alcoholic cirrhosis Hypertension Arthritis Lung cancer Impaired vision Hepatitis C Current every day smoker Lung cancer metastatic to brain Depression Anxiety Adenopathy Chronic fatigue Surgical History S/P dissection of cervical lymph nodes (01/16/19) History of colon surgery (~08/2016) Family History Mother Cancer Social History marital status: household members: spouse Smoking Status: Former smoker alcohol intake: former substance use type: marijuana Smoking Status: Former smoker alcohol intake frequency: holidays/special occasions only Substance Use Type: marijuana and amphetamines Exam Narrative Exam Narrative: GEN: Patient appears in mild distress. HEAD: No evidence of trauma, no raccoon/Pate sign. NECK: Nontender, painless range of motion, trachea midline Negative Nexus criteria, no midline line tenderness, distracting injury, altered mental status, neuro deficit, recent EtOH. EYES: PERRLA, EOMI ENT: External inspection normal, trachea is midline, TM's are normal no hemotypanum, Nares are clear, no septal hematoma, no dental or oral injury, airway is normal and with normal occlusion, No bony tenderness RESP: Chest is nontender and has symmetric movement, no ecchymosis, breath sounds are normal no crackles, wheezes or rales CVS: Heart sounds are normal, no murmur noted, No JVD. ABG/GI: Nontender, soft, normal bowel sounds, no distention, no organomegaly, pelvic rock is negative NEURO: Oriented AOx3, neuro is grossly intact, sensation and motor is normal all 4 extremities moving, cranial nerves II through XII are intact, GCS is 15 PSYCH: Normal mood and affect SKIN: Intact, warm and dry, no crepitus and without decubitus BACK: No CVA tenderness, no vertebral tenderness, no step-off's, no crepitus EXT: Patient has left wrist deformity with ecchymosis. Radial pulses 2+, full range of motion of all 5 fingers, normal flexion, extension, adduction and abduction. No bony tenderness fingers or hand. Hips are nontender, no pedal edema, normal color and temperature, normal range of motion of extremities with normal tendon exam, 2+ pulses in all four extremities Initial Vital Signs Initial Vital Signs: Vital Signs Temperature 98.3 F 02/04/23 19:22 Pulse Rate 66 02/04/23 19:22 Respiratory Rate 16 02/04/23 19:22 Blood Pressure 184/89 H 02/04/23 19:22 Pulse Oximetry 97 02/04/23 19:22 Oxygen Delivery Method Room Air 02/04/23 19:22 Procedures Nerve Block Nerve Block 1: Time out performed: Yes Local Anesthetic: bupivacaine 0.25% Amount of anesthesia used (mL): 5 Side: left Nerve Blocks: hematoma block Procedure Successful: Yes Patient Tolerated Procedure: Well and No complications Orthopedic Fracture Reduction Fracture #1: Side: left Fracture Reduction Location: radius Analgesia: hematoma block Technique: direct manipulation and traction/counter-traction Post Reduction X-rays Demonstrate: acceptable reduction Post-reduction neuro exam: intact and no change Post-reduction vascular exam: intact and no change Splint Applied: Yes Patient Tolerated Procedure: Well and No complications Orthopedic Splinting/Casting Injury #1: Upper Extremity Injury Location: wrist Upper Extremity Immobilizer: sugar tong splint Post splinting neuro exam: intact and no change Post splinting vascular exam: no change (intact ) Placed by: Provider Course Orders Ordered: ED Orders 02/04/23 19:28 XR forearm LT 2V Stat XR wrist LT min 3V Stat 02/04/23 21:24 XR wrist LT 2V Stat Discontinued Medications Bupivacaine HCl (Bupivacaine 0.25% (Pf) Vial) 30 ml INJ INTRA-OP ONE Stop: 02/04/23 20:33 Last Admin: 02/04/23 20:41 Dose: 30 ml Documented By: JULIETTE Ondansetron HCl (Ondansetron 4 Mg Odt) 4 mg SL NOW ONE Stop: 02/04/23 19:48 Last Admin: 02/04/23 20:04 Dose: 4 mg Documented By: CHRISTEL Oxycodone/Acetaminophen (Oxycodone/Acetaminophen 5/325 Tablet) 1 tab PO NOW ONE Stop: 02/04/23 19:48 Last Admin: 02/04/23 20:03 Dose: 1 tab Documented By: CHRISTEL Oxycodone/Acetaminophen (Oxycodone/Apap 5/325 Prepack) 1 bottle MISC SEEINSTR ONE Stop: 02/04/23 21:28 Last Admin: 02/04/23 21:40 Dose: 1 bottle Documented By: CHRISTEL Vital Signs Vital signs: Vital Signs - 8 hr 02/04/23 19:22 02/04/23 21:41 Temperature 98.3 F Pulse Rate 66 62 Respiratory Rate 16 18 Blood Pressure 184/89 H 181/81 H Pulse Oximetry 97 96 Oxygen Delivery Method Room Air Room Air MDM - Extremity Injury (Upper) Imaging Data Extremity x-ray #1: Radiologist's Impression: [place] [address] XRay Report Signed Patient: Laisha Li MR#: [id number] : 1955 Acct:[id number] Age/Sex: 67 / F Date of Service: 02/04/23 Loc: ED Accession Number: [id number] Procedure: XR wrist LT min 3V Ordering Provider: Hoda Colindres D.O. PROCEDURE: XR WRIST LT MIN 3V INDICATIONS: fall with deformity to left wrist TECHNIQUE: 4 views of the wrist were acquired. COMPARISON: None. FINDINGS: Bones: Acute impacted fracture involving distal radial shaft is seen with dorsal and lateral displacement and angulation at fracture site and up to 1.3 cm overlapping. There is also possible nondisplaced or minimally displaced fracture involving ulnar styloid base. Prior internal fixation of 5th proximal phalangeal shaft is seen. Diffuse osteopenia. Osteoarthritic changes are noted throughout wrist joints. No suspicious bony lesions. Scaphoid view: Scaphoid is intact. Soft tissues: No suspicious soft tissue calcifications. IMPRESSION: Acute impacted, displaced and angulated fracture involving distal radius as above. Suggestion of minimally displaced ulnar styloid fracture. Diffuse osteopenia and left wrist joint osteoarthritis. Dictated by: Tu Nance M.D. on 02/04/2023 at 20:12 Approved by: Tu Nance M.D. on 02/04/2023 at 20:13 Extremity x-ray #2: Radiologist's Impression: [address] [address] XRay Report Signed Patient: Laisha Li MR#: [id number] : 1955 Acct:[id number] Age/Sex: 67 / F Date of Service: 02/04/23 Loc: ED Accession Number: [id number] Procedure: XR forearm LT 2V Ordering Provider: Hoda Colindres D.O. PROCEDURE: XR FOREARM LT 2V INDICATIONS: fall with deformity to left wrist TECHNIQUE: 2 views of the forearm were acquired. COMPARISON: None. FINDINGS: Bones: Acute impacted fracture involving distal radius is seen with dorsal and lateral displacement at fracture site . Prior fixation of distal humeral shaft and 5th proximal phalangeal shaft is seen. No other fracture or dislocation. No suspicious bony lesions. Soft tissues: No suspicious soft tissue calcifications or masses. IMPRESSION: Acute impacted and displaced distal radial fracture as above. No proximal to mid forearm fracture. Dictated by: Tu Nance M.D. on 02/04/2023 at 20:09 Approved by: Tu Nance M.D. on 02/04/2023 at 20:11 Extremity x-ray #3: Radiologist's Impression: [address] [address] XRay Report Signed Patient: Laisha Li MR#: [id number] : 1955 Acct:[id number] Age/Sex: 67 / F Date of Service: 02/04/23 Loc: ED Accession Number: [id number] Procedure: XR wrist LT 2V Ordering Provider: Hoda Colindres D.O. PROCEDURE: XR WRIST LT 2V INDICATIONS: post, TECHNIQUE: 2 views of the wrist were acquired. COMPARISON: [facility] , XR WRIST LT MIN 3V, 02/04/2023, 19:34. FINDINGS: Bones: There is interval reduction of earlier noted impacted and displaced distal radial fracture with improved wrist alignment. Ulnar styloid tip fracture is again seen. No suspicious bony lesions. Soft tissues: No suspicious soft tissue calcifications. IMPRESSION: Interval reduction of earlier noted distal radial fracture with i mproved wrist alignment. Dictated by: Tu Nance M.D. on 02/04/2023 at 21:41 Approved by: Tu Nance M.D. on 02/04/2023 at 21:42 [facility] Narrative Medical decision making narrative: 67-year-old female with obvious deformity of the wrist which shows a distal impacted and angulated fracture possible ulnar styloid fracture. Patient is diffuse osteopenia. She is neurovascularly intact. After discussion about reduction versus hematoma block. Discussed with patient and family they prefer for hematoma block. This was performed. Patient had traction with direct manipulation and had some improvement and repeat imaging. Splint was placed by myself. Patient neurovascularly intact afterwards. Plan for follow-up with orthopedic surgery, patient family to call 1st thing in the morning. Discharge Plan Departure Patient Disposition: Home Clinical Impression: Left radial fracture Qualifiers: Encounter type: initial encounter Radius location: distal Fracture type: closed Fracture of ulnar styloid Qualifiers: Encounter type: initial encounter Fracture type: closed Laterality: left Instructions: DI for Wrist Fracture Activity Restrictions/Additional Instructions: Please call to set up a follow-up appointment with Orthopedic surgery, call 1st thing in the morning for follow-up in the next week. You may take pain medication as prescribed. This medication can make you sleepy do not drive, perform hazardous activities or make any major decisions while taking it. This medication will make you constipated please take a stool softener once to twice daily until stools are soft and regular. Prescription sent to [facility] Splint Care: Keep splint clean and dry. Elevated affected body part to decrease swelling. OK to use ice pack on the affected body part. Use for 15-20 minutes each time, for 5-6x per day. If you develop worsening pain, numbness, tingling, discoloration of the affected body part, loosen the splint by loosening the DANIS wrap, and either see your doctor for an urgent re-assessment, or return to the Emergency Department. Return to the Emergency Department for any new or worsening symptoms. Prescriptions: New oxycodone-acetaminophen [Percocet] 5-325 mg tablet 1 tab PO QID PRN (Reason: pain) Qty: 14 0RF No Action naproxen sodium [Aleve] 220 mg Tablet 220 mg PO BID PRN (Reason: Pain) lidocaine-prilocaine 2.5-2.5 % Cream 1 applic topical PRN PRN (Reason: pain) Qty: 30 0RF Rx Instructions: Apply to the skin over the port at least 2 hrs before planned use of the port. Cover the cream with a small piece of plastic wrap and leave in place until the port is accessed. oxycodone-acetaminophen 5-325 mg Tablet 1 tab PRN PRN (Reason: Pain (Scale Score 4-6)) lisinopril 10 mg Tablet 10 mg PO DAILY Qty: 30 11RF levothyroxine 50 mcg Tablet 50 mcg PO DAILY Qty: 30 11RF levothyroxine 75 mcg Tablet 75 mcg PO DAILY Qty: 30 6RF clonidine HCl 0.1 mg tablet 0.1 mg PO DAILY PRN (Reason: pre-procedure) Qty: 10 2RF Rx Instructions: Take one tablet before the oncology visit. lorazepam 0.5 mg tablet 0.5 mg PO DAILY PRN (Reason: anxiety) Qty: 4 2RF Rx Instructions: Take one tab at the oncology visit for elevated b/p. Referrals: Shakir Tiwari MD [Physician] - Nkechi Spear PA-C [Primary Care Provider] - Stand Alone Forms: Patient Portal/API
[2023-02-04] MEDS: OXYCODONE/ACETAMINOPHEN 5/325 TABLET 1 TAB PO (20:03)
[2023-02-04] MEDS: ONDANSETRON 4 MG ODT SL (20:04)
[2023-02-04] MEDS: BUPIVACAINE 0.25% (PF) VIAL 30 ML INJ (20:41)
--- NOTE | 2023-02-04 21:24 | DI.RAD.S_ITS ---
PROCEDURE: XR WRIST LT 2V INDICATIONS: post, TECHNIQUE: 2 views of the wrist were acquired. COMPARISON: [facility], CR, XR WRIST LT MIN 3V, 02/04/2023, 19:34. FINDINGS: Bones: There is interval reduction of earlier noted impacted and displaced distal radial fracture with improved wrist alignment. Ulnar styloid tip fracture is again seen. No suspicious bony lesions. Soft tissues: No suspicious soft tissue calcifications. IMPRESSION: Interval reduction of earlier noted distal radial fracture with improved wrist alignment. Dictated by: Tu Nance M.D. on 02/04/2023 at 21:41 Approved by: Tu Nance M.D. on 02/04/2023 at 21:42
[2023-02-04] MEDS: OXYCODONE/APAP 5/325 PREPACK 1 BOTTLE MISC (21:40)
[2023-02-04 21:41] VITALS: BP 181/81; PULSE 62; RESP 18; O2SAT 96
== END 2023-02-04 21:59 | disposition home or self-care (01) ==
PROVIDERS: Emergency Provider Emergency Medicine; Family Provider Internal Medicine Hematology & Oncology; PCP Physician Assistant
DX: S52.502A Unspecified fracture of the lower end of left radius, initial encounter for closed fracture (principal); W18.30XA Fall on same level, unspecified, initial encounter
CPT/HCPCS: 25605; 64450; 73090; 73100; 73110; 99284

== ENCOUNTER 2023-02-26 13:55 | Observation (INO) | payer MEDICARE, SELFPAY ==
[2023-02-26] VITALS (11 sets, daily range): BP systolic 124–174; BP diastolic 69–86; PULSE 62–87; RESP 16–26; TEMP 36.6–37.3; O2SAT 92–97; BMI 20.5
--- NOTE | 2023-02-26 15:04 | DI.RAD.S_ITS ---
PROCEDURE: XR ANKLE LT MIN 3V INDICATIONS: pain, swelling, fall TECHNIQUE: 3 views of the ankle were acquired. COMPARISON: [facility], CR, XR TIBIA FIBULA LT 2V, 02/26/2023, 15:16. FINDINGS: Bones: Comminuted and mildly displaced fracture of the mid to distal tibial shaft. Small osseous fragment adjacent to the cuboid, may represent an avulsion fracture. Diffusely decreased osseous mineralization. Ankle mortise is normally aligned. No suspicious bony lesions. Soft tissues: No tibiotalar joint effusion. Achilles tendon appears normal. IMPRESSION: Mildly displaced fracture of the mid to distal tibial diaphysis. Small osseous fragment adjacent to the cuboid, may represent an age indeterminate avulsion fracture, correlate with point tenderness. Dictated by: Evens Vivar M.D. on 02/26/2023 at 15:58 Approved by: Evens Vivar M.D. on 02/26/2023 at 16:00
--- NOTE | 2023-02-26 15:04 | DI.RAD.S_ITS ---
PROCEDURE: XR TIBIA FIBULA LT 2V INDICATIONS: pain, swelling, fall TECHNIQUE: 2 views of the tibia and fibula were acquired. COMPARISON: None. FINDINGS: Bones: Comminuted fracture through the proximal metadiaphysis of the fibula. Comminuted spiral fracture through the mid tibial shaft. Soft tissues: No suspicious soft tissue calcifications or masses. IMPRESSION: Comminuted fracture through the proximal metadiaphysis of the fibula. Comminuted spiral fracture of the mid tibial shaft. Dictated by: Damián Stout M.D. on 02/26/2023 at 15:41 Approved by: Damián Stout M.D. on 02/26/2023 at 15:42
--- NOTE | 2023-02-26 15:21 | ED_ITS ---
HPI - Extremity Injury (Lower) <Shwetha Davey PA-C - Last Filed: 02/26/23 18:45> General Chief Complaint: Extremity Injury, Lower Stated Complaint: fell ankle or lt foot injured Time Seen by Provider: 02/26/23 15:04 Source: patient Mode of arrival: Ambulatory History of Present Illness HPI Narrative: 67-year-old female with past medical history CLL, metastatic lung cancer, Mets to the brain, hypothyroidism presents to the ED status post a fall sustained at home earlier today. Per patient's , patient has been minimally mobile since she had radiation for the brain mets, and only walks as far as the bathroom with a kitchen. Patient's works, comes on frequently to check on her, found her on the floor this morning while she was trying to make her way to the kitchen. Patient does not recall exactly how she fell. Patient complains of pain in the right leg, denies any other injuries. Patient denies numbness, tingling, weakness. Patient is scheduled to have a left wrist surgery performed by Dr. Tiwari tomorrow. Related Data Home Medications Medication Instructions Recorded Confirmed naproxen sodium 220 mg tablet 220 mg PO BID PRN Pain 03/02/19 02/26/23 (Aleve) oxycodone-acetaminophen 5 mg-325 1 tab PRN PRN Pain (Scale Score 10/12/21 02/26/23 mg tablet 4-6) Previous Rx's Medication Instructions Recorded clonidine HCl 0.1 mg tablet 0.1 mg PO DAILY PRN pre-procedure 11/09/20 #10 tabs lorazepam 0.5 mg tablet 0.5 mg PO DAILY PRN anxiety #4 tabs 11/09/20 lidocaine-prilocaine 2.5 %-2.5 % 1 applic topical PRN PRN pain #30 08/03/21 topical cream grams levothyroxine 50 mcg tablet 50 mcg PO DAILY hypothyroidism #30 06/07/22 tabs lisinopril 10 mg tablet 10 mg PO DAILY #30 tabs 06/07/22 levothyroxine 75 mcg tablet 75 mcg PO DAILY Hypothyroidism #30 10/04/22 tabs oxycodone-acetaminophen 5 mg-325 1 tab PO QID PRN pain #14 tabs 02/04/23 mg tablet (Percocet) Allergies Allergy/AdvReac Type Severity Reaction Status Date / Time hydrocodone AdvReac Mild Nausea Verified 02/08/23 10:30 Review of Systems <hSwetha Davey PA-C - Last Filed: 02/26/23 18:45> Constitutional Constitutional: Denies chills, Denies fatigue, Denies fever(s), Denies frequent falls, Denies lethargy and Denies weakness Eyes Eyes: Denies change in vision, Denies eye discharge, Denies irritation and Denies loss of vision ENT Ears, Nose, Mouth, and Throat: Denies change in voice, Denies dizziness, Denies neck pain, Denies sore throat and Denies throat swelling Cardiovascular Cardiovascular: Denies chest pain, Denies irregular heart rhythm, Denies lightheadedness, Denies palpitations, Denies dyspnea, Denies dyspnea on exertion and Denies orthopnea Respiratory Respiratory: Denies cough, Denies dyspnea, Denies dyspnea on exertion and Denies wheezing Gastrointestinal Gastrointestinal: Denies abdominal pain, Denies change in bowel habits, Denies diarrhea, Denies nausea and Denies vomiting Musculoskeletal Musculoskeletal: Denies neck pain and Denies numbness Comments: Right lower leg pain, swelling Integumentary/Breasts Skin/Breast: Denies pruritus, Denies erythema, Denies rash and Denies wounds Neurologic Neurologic: Denies behavioral changes, Denies confusion, Denies dizziness, Denies frequent falls, Denies loss of vision, Denies numbness and Denies weakness Psychiatric Psychiatric: Denies anxiety, Denies behavioral changes, Denies confusion, Denies depression, Denies homicidal ideation and Denies suicidal ideation Endocrine Endocrine: Denies fatigue, Denies flushing and Denies palpitations Hematologic/Lymphatic Hematologic/Lymphatic: Denies easy bruising Allergic/Immunologic Allergic/Immunologic: Denies urticaria, Denies throat swelling and Denies wheezing Patient History <Shwetha Davey PA-C - Last Filed: 02/26/23 18:45> Medical History Malignant neoplasm of unspecified site of unspecified female breast Easy bruisability Pain Port-A-Cath in place (~2019) Alcoholic cirrhosis Hypertension Arthritis Lung cancer Impaired vision Hepatitis C Current every day smoker Lung cancer metastatic to brain Depression Anxiety Adenopathy Chronic fatigue Surgical History History of orthopedic surgery (09/27/21) History of surgery (07/07/19) S/P dissection of cervical lymph nodes (01/16/19) History of colon surgery (~08/2016) Family History Mother Cancer Social History marital status: household members: spouse Smoking Status: Former smoker alcohol intake: current substance use type: marijuana Smoking Status: Former smoker alcohol intake frequency: holidays/special occasions only Substance Use Type: marijuana and amphetamines Exam <Shwetha Davey PA-C - Last Filed: 02/26/23 18:45> Narrative Exam Narrative: Const General:?cooperative, healthy appearing and comfortable HENCO Head:?normal to inspection Ears:?hearing grossly normal bilaterally Nose:?external nose normal Face and sinus:?normal facial exam and sinuses nontender Mouth:?oral mucosae normal Throat:?posterior oropharynx normal Eyes General:?appearance normal, both eyes and all related structures Neck Neck:?normal visual inspection and no lymphadenopathy noted Resp Effort & Inspection:?normal respiratory effort Auscultation:?clear to auscultation bilaterally Cardio Rate:?regular rate Rhythm:?regular rhythm Musculoskeletal Right lower leg with swelling, tenderness to palpation. No bruising. Pedal pulses intact. Unable to bear weight. Compartments soft. Vascularly intact. Neuro General:?patient alert, patient awake and patient oriented x3 Initial Vital Signs Initial Vital Signs: Vital Signs Temperature 99.1 F 02/26/23 14:00 Pulse Rate 62 02/26/23 14:00 Respiratory Rate 16 02/26/23 14:00 Blood Pressure 129/75 02/26/23 14:00 Pulse Oximetry 96 02/26/23 14:00 Oxygen Delivery Method Room Air 02/26/23 14:00 <Hoda Barnhart MD - Last Filed: 02/27/23 07:23> Initial Vital Signs Initial Vital Signs: Vital Signs Temperature 99.1 F 02/26/23 14:00 Pulse Rate 62 02/26/23 14:00 Respiratory Rate 16 02/26/23 14:00 Blood Pressure 129/75 02/26/23 14:00 Pulse Oximetry 96 02/26/23 14:00 Oxygen Delivery Method Room Air 02/26/23 14:00 Course <Shwetha Davey PA-C - Last Filed: 02/26/23 18:45> Orders Ordered: Acetaminophen (Acetaminophen 325 Mg Tablet) 650 mg PO Q6H PRN PRN Reason: Fever/Mild Pain (1-3) Last Admin: 02/27/23 01:07 Dose: 650 mg Documented By: CAPRICE Levothyroxine Sodium (Levothyroxine 75 Mcg Tablet) 75 mcg PO DAILY JAZMYN Morphine Sulfate (Morphine 4 Mg/Ml Inj) 3 mg IV Q4HR PRN PRN Reason: Pain, Severe (7-10) Last Admin: 02/27/23 01:46 Dose: 3 mg Documented By: CAPRICE Naloxone HCl (Naloxone 0.4 Mg/Ml Vial) 0.2 mg IV Q2MIN PRN PRN Reason: Opiate Reversal Ondansetron HCl (Ondansetron 4 Mg/2 Ml Inj) 4 mg IV Q8HR PRN PRN Reason: Nausea And Vomiting Oxycodone HCl (Oxycodone Ir 5 Mg Tablet) 5 mg PO Q3H PRN PRN Reason: Pain, Moderate (4-6) Last Admin: 02/27/23 01:07 Dose: 5 mg Documented By: CAPRICE Discontinued Medications Morphine Sulfate (Morphine 4 Mg/Ml Inj) 4 mg IV NOW ONE Stop: 02/26/23 17:59 Last Admin: 02/26/23 18:02 Dose: 4 mg Documented By: GODWIN Ondansetron HCl (Ondansetron 4 Mg Odt) 4 mg PO NOW PRN PRN Reason: Nausea And Vomiting Ondansetron HCl (Ondansetron 4 Mg/2 Ml Inj) 4 mg IV NOW PRN PRN Reason: Nausea And Vomiting Vital Signs Vital signs: Vital Signs - 8 hr 02/26/23 14:00 02/26/23 15:44 02/26/23 16:39 Temperature 99.1 F 98.4 F Pulse Rate 62 87 Respiratory Rate 16 16 Blood Pressure 129/75 132/73 127/76 Pulse Oximetry 96 95 Oxygen Delivery Method Room Air 02/26/23 16:41 02/26/23 16:42 02/26/23 16:42 Temperature Pulse Rate 72 72 Respiratory Rate 20 20 Blood Pressure 127/76 Pulse Oximetry 92 94 Oxygen Delivery Method 02/26/23 17:00 02/26/23 17:00 02/26/23 17:30 Temperature Pulse Rate 70 75 Respiratory Rate 19 24 Blood Pressure 124/69 Pulse Oximetry 95 96 Oxygen Delivery Method 02/26/23 17:31 02/26/23 17:31 02/26/23 17:50 Temperature Pulse Rate 76 71 Respiratory Rate 22 21 Blood Pressure 174/77 H Pulse Oximetry 96 97 Oxygen Delivery Method 02/26/23 17:50 Temperature Pulse Rate Respiratory Rate Blood Pressure 129/74 Pulse Oximetry Oxygen Delivery Method <Hoda Barnhart MD - Last Filed: 02/27/23 07:23> Orders Ordered: Acetaminophen (Acetaminophen 325 Mg Tablet) 650 mg PO Q6H PRN PRN Reason: Fever/Mild Pain (1-3) Last Admin: 02/27/23 01:07 Dose: 650 mg Documented By: CAPRICE Levothyroxine Sodium (Levothyroxine 75 Mcg Tablet) 75 mcg PO DAILY JAZMYN Morphine Sulfate (Morphine 4 Mg/Ml Inj) 3 mg IV Q4HR PRN PRN Reason: Pain, Severe (7-10) Last Admin: 02/27/23 01:46 Dose: 3 mg Documented By: CAPRICE Naloxone HCl (Naloxone 0.4 Mg/Ml Vial) 0.2 mg IV Q2MIN PRN PRN Reason: Opiate Reversal Ondansetron HCl (Ondansetron 4 Mg/2 Ml Inj) 4 mg IV Q8HR PRN PRN Reason: Nausea And Vomiting Oxycodone HCl (Oxycodone Ir 5 Mg Tablet) 5 mg PO Q3H PRN PRN Reason: Pain, Moderate (4-6) Last Admin: 02/27/23 01:07 Dose: 5 mg Documented By: CAPRICE Discontinued Medications Morphine Sulfate (Morphine 4 Mg/Ml Inj) 4 mg IV NOW ONE Stop: 02/26/23 17:59 Last Admin: 02/26/23 18:02 Dose: 4 mg Documented By: GODWIN Ondansetron HCl (Ondansetron 4 Mg Odt) 4 mg PO NOW PRN PRN Reason: Nausea And Vomiting Ondansetron HCl (Ondansetron 4 Mg/2 Ml Inj) 4 mg IV NOW PRN PRN Reason: Nausea And Vomiting Vital Signs Vital signs: Vital Signs - 8 hr 02/26/23 14:00 02/26/23 15:44 02/26/23 16:39 Temperature 99.1 F 98.4 F Pulse Rate 62 87 Respiratory Rate 16 16 Blood Pressure 129/75 132/73 127/76 Pulse Oximetry 96 95 Oxygen Delivery Method Room Air 02/26/23 16:41 02/26/23 16:42 02/26/23 16:42 Temperature Pulse Rate 72 72 Respiratory Rate 20 20 Blood Pressure 127/76 Pulse Oximetry 92 94 Oxygen Delivery Method 02/26/23 17:00 02/26/23 17:00 02/26/23 17:30 Temperature Pulse Rate 70 75 Respiratory Rate 19 24 Blood Pressure 124/69 Pulse Oximetry 95 96 Oxygen Delivery Method 02/26/23 17:31 02/26/23 17:31 02/26/23 17:50 Temperature Pulse Rate 76 71 Respiratory Rate 22 21 Blood Pressure 174/77 H Pulse Oximetry 96 97 Oxygen Delivery Method 02/26/23 17:50 Temperature Pulse Rate Respiratory Rate Blood Pressure 129/74 Pulse Oximetry Oxygen Delivery Method MDM - Extremity Injury (Lower) <Shwetha Davey PA-C - Last Filed: 02/26/23 18:45> Lab Data 02/27/23 06:23 02/27/23 06:23 Labs: Lab Results 02/26/23 02/26/23 Range/Units 14:17 17:53 WBC 8.9 (4.5-11.0) X10^3/uL RBC 4.10 (4.0-5.2) X10^6/uL Hgb 13.0 (12.0-16.0) g/dL Hct 37.6 (36-46) % MCV 91.6 (80-100) fL MCH 31.7 (26-34) PG MCHC 34.6 (30-36) % RDW 12.9 (11.6-14.8) % Plt Count 183 (150-400) X10^3/uL Neut % (Auto) 79.6 H (50-75) % Lymph % (Auto) 11.9 L (25-40) % [place] % (Auto) 7.9 (3-14) % Eos % (Auto) 0.4 L (2-4) % Baso % (Auto) 0.2 (0-2) % Neut # (Auto) 7100 H (2597-7454) /uL Lymph # (Auto) 1100 (8510-3096) /uL [place] # (Auto) 700 (0-900) /uL Eos # (Auto) 0 (0-450) /uL Baso # (Auto) 0 (0-100) /uL PT 13.4 H (10.1-12.7) SECONDS INR 1.2 (0.9-1.3) Sodium 137 (137-145) mmol/L Potassium 4.1 (3.4-5.1) mmol/L Chloride 102 (98-107) mmol/L Carbon Dioxide 26 (22-32) mmol/L BUN 36 H (7-17) mg/dL Creatinine 0.66 (0.52-1.04) mg/dL Estimated GFR > 60 (>60) mL/min BUN/Creatinine Ratio 54.5 H (6-22) Glucose 123 H (80-110) mg/dL Calcium 10.1 (8.4-10.2) mg/dL Total Bilirubin 1.0 (0.2-1.3) mg/dL AST 28 (14-36) IU/L ALT 19 (<35) IU/L Alkaline Phosphatase 79 (38-126) U/L Total Creatine Kinase 33 (30-135) U/L Troponin I < 0.012 (0.01-0.034) ng/mL Total Protein 8.4 H (6.3-8.2) g/dL Albumin 4.6 (3.5-5.0) g/dL Globulin 3.8 (1.7-4.1) g/dL Albumin/Globulin Ratio 1.2 (1.0-2.8) Lipase 124 (23-300) U/L TSH 0.25 L (0.47-4.68) uIU/mL Free T4 1.71 (0.78-2.19) ng/dL Urine Color Yellow Urine Appearance Clear Urine pH 5.5 (4.5-8.0) Ur Specific [place] >=1.030 H (1.000-1.035) Urine Protein Negative (Negative) Urine Glucose (UA) Negative (Negative) g/dL Urine Ketones Trace H (NEGATIVE) Urine Occult Blood Negative (Negative) Urine Nitrate Positive H (Negative) Urine Bilirubin Negative (NEGATIVE) Urine Urobilinogen 0.2 (0.2) E.U./dL Ur Leukocyte Esterase 1+ H (NEGATIVE) Urine RBC 0-1/hpf (0-5/HPF) Urine WBC 10-30/hpf H (0-5/HPF) Ur Squamous Epith Cells 1-5 /hpf (0-5/HPF) Ur Transition Epith Cell 1-5/hpf (0-5/HPF) Ur Renal Epithelial Cell 0-1/hpf (0-1/HPF) Urine Bacteria Many (>30) H (None) Ur Culture Indicated? Specimen cultured MDM Narrative Medical decision making narrative: 67-year-old female with past medical history CLL, metastatic lung cancer, Mets to the brain, hypothyroidism presents to the ED status post a fall sustained at home earlier today. Concern for fracture/dislocation versus musculoskeletal sprain/strain versus other. X-rays were obtained which shows a comminuted fracture through the proximal metadiaphysis of the fibula. Comminuted spiral fracture through the mid tibial shaft. Patient took some Percocet to the ED. Will give naproxen. Will consult Orthopedics. Given that patient does not recall how she fell, CT head was obtained, which does not show any acute findings. Dr. Tiwari from ortho was consulted, he will address the tib-fib fractures along with the wrist tomorrow in surgery. He recommends admitting patient tonight to the hospitalist and and to monitor for compartment syndrome or neurovascular compromise. Patient is splinted with a short-leg splint with good padding. Patient was given morphine for pain control. Hospitalist Dr. Bains was consulted, he graciously accepts the patient. Findings and plan discussed with patient and patient's . They verbalized understanding. Medical records reviewed: Yes <Hoda Barnhart MD - Last Filed: 02/27/23 07:23> Lab Data Labs: Lab Results 02/26/23 02/26/23 Range/Units 14:17 17:53 WBC 8.9 (4.5-11.0) X10^3/uL RBC 4.10 (4.0-5.2) X10^6/uL Hgb 13.0 (12.0-16.0) g/dL Hct 37.6 (36-46) % MCV 91.6 (80-100) fL MCH 31.7 (26-34) PG MCHC 34.6 (30-36) % RDW 12.9 (11.6-14.8) % Plt Count 183 (150-400) X10^3/uL Neut % (Auto) 79.6 H (50-75) % Lymph % (Auto) 11.9 L (25-40) % [place] % (Auto) 7.9 (3-14) % Eos % (Auto) 0.4 L (2-4) % Baso % (Auto) 0.2 (0-2) % Neut # (Auto) 7100 H (9839-6189) /uL Lymph # (Auto) 1100 (8261-1744) /uL [place] # (Auto) 700 (0-900) /uL Eos # (Auto) 0 (0-450) /uL Baso # (Auto) 0 (0-100) /uL PT 13.4 H (10.1-12.7) SECONDS INR 1.2 (0.9-1.3) Sodium 137 (137-145) mmol/L Potassium 4.1 (3.4-5.1) mmol/L Chloride 102 (98-107) mmol/L Carbon Dioxide 26 (22-32) mmol/L BUN 36 H (7-17) mg/dL Creatinine 0.66 (0.52-1.04) mg/dL Estimated GFR > 60 (>60) mL/min BUN/Creatinine Ratio 54.5 H (6-22) Glucose 123 H (80-110) mg/dL Calcium 10.1 (8.4-10.2) mg/dL Total Bilirubin 1.0 (0.2-1.3) mg/dL AST 28 (14-36) IU/L ALT 19 (<35) IU/L Alkaline Phosphatase 79 (38-126) U/L Total Creatine Kinase 33 (30-135) U/L Troponin I < 0.012 (0.01-0.034) ng/mL Total Protein 8.4 H (6.3-8.2) g/dL Albumin 4.6 (3.5-5.0) g/dL Globulin 3.8 (1.7-4.1) g/dL Albumin/Globulin Ratio 1.2 (1.0-2.8) Lipase 124 (23-300) U/L TSH 0.25 L (0.47-4.68) uIU/mL Free T4 1.71 (0.78-2.19) ng/dL Urine Color Yellow Urine Appearance Clear Urine pH 5.5 (4.5-8.0) Ur Specific [place] >=1.030 H (1.000-1.035) Urine Protein Negative (Negative) Urine Glucose (UA) Negative (Negative) g/dL Urine Ketones Trace H (NEGATIVE) Urine Occult Blood Negative (Negative) Urine Nitrate Positive H (Negative) Urine Bilirubin Negative (NEGATIVE) Urine Urobilinogen 0.2 (0.2) E.U./dL Ur Leukocyte Esterase 1+ H (NEGATIVE) Urine RBC 0-1/hpf (0-5/HPF) Urine WBC 10-30/hpf H (0-5/HPF) Ur Squamous Epith Cells 1-5 /hpf (0-5/HPF) Ur Transition Epith Cell 1-5/hpf (0-5/HPF) Ur Renal Epithelial Cell 0-1/hpf (0-1/HPF) Urine Bacteria Many (>30) H (None) Ur Culture Indicated? Specimen cultured Discharge Plan Departure Patient Disposition: Admitted As Inpatient Clinical Impression: Fracture of tibia and fibula Qualifiers: Encounter type: initial encounter Fracture type: closed Laterality: right Q ualified Code(s): S82.201A - Unspecified fracture of shaft of right tibia, initial encounter for closed fracture Admit Date/Time: 02/26/23 18:16 Admit Provider: Rocco Bains ED Sign-out <Hoda Barnhart MD - Last Filed: 02/27/23 07:23> Cosign ED Attending Cosignature Attestation: Admitted for operative management of distal tib-fib fracture. Compartments soft. Neurovascularly intact.
--- NOTE | 2023-02-26 15:49 | DI.CT.S_ITS ---
PROCEDURE: CT HEAD/BRAIN WO CON INDICATIONS: fall TECHNIQUE: Noncontrast 4.5 mm thick angled axial sections acquired from the foramen magnum to the vertex, with coronal and sagittal reformats. For radiation dose reduction, the following was used: automated exposure control, adjustment of mA and/or kV according to patient size. COMPARISON: CT head 09/20/2021. FINDINGS: Image quality: Excellent. CSF spaces: Basal cisterns are patent. No extra-axial fluid collections. The ventricles are symmetric in size and shape. Brain: No intracranial bleeds or masses. There is diffuse cerebral volume loss with resultant ventricular and sulcal prominence. There are periventricular and deep white matter chronic small vessel ischemic changes. Chronic pontine lacunar infarcts. There is intracranial internal carotid artery atherosclerosis. No loss of wallace-white differentiation to suggest acute infarct. Skull and face: Calvarium and visualized facial bones appear intact, without suspicious lesions. Sinuses: Visualized sinuses and mastoids are clear. IMPRESSION: No acute intracranial abnormality. Dictated by: Yaneth Kunz M.D. on 02/26/2023 at 16:20 Approved by: Yaneth Kunz M.D. on 02/26/2023 at 16:24
--- NOTE | 2023-02-26 16:02 | PC.NURSE ---
Pt left fast track room for CT @ 1600. Moved to tx room [address] she returns [address].
[2023-02-26 16:56] LABS: INR 1.2 (0.9-1.3); Prothrombin Time 13.4 SECONDS (10.1-12.7)
[2023-02-26 16:59] LABS: Creatine Kinase 33 U/L (30-135)
[2023-02-26 17:01] LABS: Alanine Aminotransferase 19 IU/L (<35); Albumin 4.6 g/dL (3.5-5.0); Albumin Globulin Ratio 1.2 (1.0-2.8); Alkaline Phosphatase 79 U/L (38-126); Aspartate Aminotransferase 28 IU/L (14-36); BUN Creatinine Ratio 54.5 (6-22); Blood Urea Nitrogen 36 mg/dL (7-17); Calcium 10.1 mg/dL (8.4-10.2); Carbon Dioxide 26 mmol/L (22-32); Chloride 102 mmol/L (98-107); Estimated Glomerular Filt Rate > 60 mL/min (>60); Globulin 3.8 g/dL (1.7-4.1); Glucose 123 mg/dL (80-110); HEMOLYSIS < 15 (0-50); Lipase 124 U/L (23-300); Potassium 4.1 mmol/L (3.4-5.1); Sodium 137 mmol/L (137-145); Total Protein 8.4 g/dL (6.3-8.2)
[2023-02-26 17:03] LABS: Add Manual Diff / Slide Review NO; Basophils Absolute Auto 0 /uL (0-100); Basophils Percent Auto 0.2 % (0-2); Eosinophils Absolute Auto 0 /uL (0-450); Eosinophils Percent Auto 0.4 % (2-4); Hematocrit 37.6 % (36-46); Lymphocytes Absolute Auto 1100 /uL (1100-4500); Lymphocytes Percent Auto 11.9 % (25-40); Mean Corpuscular HGB Conc 34.6 % (30-36); Mean Corpuscular Hemoglobin 31.7 PG (26-34); Mean Corpuscular Volume 91.6 fL (80-100); Monocytes Absolute Auto 700 /uL (0-900); Monocytes Percent Auto 7.9 % (3-14); Neutrophils Absolute Auto 7100 /uL (1500-7000); Neutrophils Percent Auto 79.6 % (50-75); Platelet Count 183 X10^3/uL (150-400); Red Cell Distribution Width 12.9 % (11.6-14.8); White Blood Cell Count 8.9 X10^3/uL (4.5-11.0)
[2023-02-26 17:12] LABS: Troponin I < 0.012 ng/mL (0.01-0.034)
[2023-02-26 17:37] LABS: TSH w/ Reflex to FT4 0.25 uIU/mL (0.47-4.68)
[2023-02-26] MEDS: MORPHINE 4 MG/ML INJ IV (18:02)
[2023-02-26 18:15] LABS: Appearance Urine UA CLEAR; Bilirubin Urine UA NEGATIVE (NEGATIVE); Color Urine UA YELLOW; Glucose Urine UA NEGATIVE (Negative); Ketones Urine UA TRACE (NEGATIVE); Leukocyte Esterase Urine UA 1+ (NEGATIVE); Nitrite Urine UA POSITIVE (Negative); Occult Blood Urine UA NEGATIVE (Negative); Protein Urine UA NEGATIVE (Negative); Specific Gravity Urine UA >=1.030 (1.000-1.035); Urobilinogen Urine UA 0.2 E.U./dL (0.2)
--- NOTE | 2023-02-26 18:17 | CM.SWNOTE ---
Initial DCP Assessment Patient is 67 y/o female who presents to ED with spouse due to concern for GLF. Xray shows comittinuted spiral fracture of mid tibial shaft. Patient had pre-scheduled outpatient wrist surgery with Dr. Dior for tomorrow. Patient admitted by hospitalist to address both fractures. Patient had wrist fracture earlier this month. Patient's PCP is Nkechi Spear CAMPAIGN ASSOCIATE at [facility], patient has Medicare and AARP insurance. Patient has hx of Metastatic lung cancer, Metastatic to the brain, Port Cath in place, hypothyroidism and CLL. Patient stopped chemotherapy after 3 years of treatment in December 2021. Patient last saw Oncologist in summer 2022. Per RN, patient struggles with following instructions and memory loss as patient cannot remember how long she's lived in the area and when she is or what she had for dinner last night. CARDING SUPERVISOR meets with patient's spouse outside of room due to concern for patient's A/O. Patient and spouse reside together on [address]. Spouse states that he has been patient's primary caregiver since patient's wrist fracture earlier this month, patient primarily stays in bed and it is difficult to transfer patient from bed to wheelchair to commode or car. Spouse drives patient. 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 It is reported that patient is resistant to support at home, but he understands that it is in patient's best interest. They have a daughter named Audra that lives on [address] but is minimally involved in patient care at this time, CARDING SUPERVISOR encourages spouse to reach out to daughter for more support during this time. Patient to be admitted by hospitalist for ortho surgeries. It is the opinion of this CARDING SUPERVISOR that patient would benefit from SLUMS evaluation, PT and OT evaluation to determine appropriateness of HH vs. SNF rehab. DCP will likely need to have further conversation with spouse and daughter regarding plan of care for patient and goals of care. BLANCA Manley Discharge Planning/Care Management CM Discharge Assessment Start: 02/26/23 18:13 Freq: Status: Active Protocol: Document 02/26/23 18:14 LN (Rec: 02/26/23 18:16 LN [id number]) Discharge Planning Assessment Assigned Workday Consultant BLANCA Obrien DPOA/Assigned Designee Name spouse/Farhat Li Contact Information [phone] Advance Directives? No History Provided By Significant Other Has Patient been admitted in last 30 No days? Prior Living Arrangements House Household Members spouse Type of transporation used prior to Relies on Others admit Independent with ADL's No Is patient alert and oriented? No Needs Assistance With Bathing,Meal Prep,Toileting, Managing Medications,Home Chores / Shopping Caregiver for Another No DME Already Rented / Owned Wheelchair Comment SNF vs. HH Review Status In Process Please Provide Date Initial DC 02/26/23 Assessment Was Performed
[2023-02-26 18:24] LABS: pH Urine UA 5.5 (4.5-8.0)
[2023-02-26 18:25] LABS: Bacteria Urine Many (>30); Culture Indicated Urine Specimen Cultured; RBC Urine 0-1/HPF (0-5/HPF); Renal Epithelial Cells Urine 0-1/HPF (0-1/HPF); Squamous Epithelial Cell Urine 1-5 /HPF (0-5/HPF); Transitional Epi Cells Urine 1-5/HPF (0-5/HPF); WBC Urine 10-30/HPF (0-5/HPF)
--- NOTE | 2023-02-26 18:44 | P.HP_ITS ---
History of Present Illness History of Present Illness Chief complaint: fell ankle or lt foot injured Narrative: Ms. 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 She has had mobility issues with her left side since having radiation to her brain for her brain mets four years ago. She drags her left leg. [place] on [place]. She had a recent fall and had an ulnar styloid fracture with plan for repair tomorrow. She was back at home and tried to mobilize by herself and fell on had leg pain. In the ED workup was done, vitals notable for afebrile, heart rate 60s, blood pressure 120s/70s, sats 96% on room air. Labs reviewed by me with WBC 8.9, hgb 13.0, plts 183. Na 137, creatinine 0.66. CT head with no acute process. Xray of left leg showed comminuted fracture through fibula, comminuted spiral fracture of tibia. She was admitted for further treatment. [facility] Medical History Malignant neoplasm of unspecified site of unspecified female breast Easy bruisability Pain Port-A-Cath in place (~2018) Alcoholic cirrhosis Hypertension Arthritis Lung cancer Impaired vision Hepatitis C Current every day smoker Lung cancer metastatic to brain Depression Anxiety Adenopathy Chronic fatigue Surgical History History of orthopedic surgery (09/27/21) History of surgery (07/07/19) S/P dissection of cervical lymph nodes (01/16/19) History of colon surgery (~08/2016) Family History Mother Cancer Social History marital status: household members: spouse Smoking Status: Former smoker alcohol intake: current substance use type: marijuana Meds Home Medications and Allergies Home Medications Medication Instructions Recorded Confirmed Type naproxen sodium 220 mg tablet 220 mg PO BID PRN Pain 03/02/19 10/04/22 History (Aleve) clonidine HCl 0.1 mg tablet 0.1 mg PO DAILY PRN pre-procedure 11/09/20 10/04/22 Rx #10 tabs lorazepam 0.5 mg tablet 0.5 mg PO DAILY PRN anxiety #4 tabs 11/09/20 10/04/22 Rx lidocaine-prilocaine 2.5 %-2.5 % 1 applic topical PRN PRN pain #30 08/03/21 10/04/22 Rx topical cream grams oxycodone-acetaminophen 5 mg-325 1 tab PRN PRN Pain (Scale Score 10/12/21 10/04/22 History mg tablet 4-6) levothyroxine 50 mcg tablet 50 mcg PO DAILY hypothyroidism #30 06/07/22 10/04/22 Rx tabs lisinopril 10 mg tablet 10 mg PO DAILY #30 tabs 06/07/22 10/04/22 Rx levothyroxine 75 mcg tablet 75 mcg PO DAILY Hypothyroidism #30 10/04/22 Rx tabs oxycodone-acetaminophen 5 mg-325 1 tab PO QID PRN pain #14 tabs 02/04/23 Rx mg tablet (Percocet) Allergies Allergy/AdvReac Type Severity Reaction Status Date / Time hydrocodone AdvReac Mild Nausea Verified 02/08/23 10:30 Review of Systems Review of Systems Narrative: 14 systems reviewed and negative aside from what is noted in HPI Exam Vital Signs (past 8 hours): - 02/26/23 14:00 02/26/23 15:44 02/26/23 16:39 Temperature 99.1 F 98.4 F Pulse Rate 62 87 Respiratory Rate 16 16 Blood Pressure 129/75 132/73 127/76 Pulse Oximetry 96 95 Oxygen Delivery Method Room Air 02/26/23 16:41 02/26/23 16:42 02/26/23 16:42 Temperature Pulse Rate 72 72 Respiratory Rate 20 20 Blood Pressure 127/76 Pulse Oximetry 92 94 Oxygen Delivery Method 02/26/23 17:00 02/26/23 17:00 02/26/23 17:30 Temperature Pulse Rate 70 75 Respiratory Rate 19 24 Blood Pressure 124/69 Pulse Oximetry 95 96 Oxygen Delivery Method 02/26/23 17:31 02/26/23 17:31 02/26/23 17:50 Temperature Pulse Rate 76 71 Respiratory Rate 22 21 Blood Pressure 174/77 H Pulse Oximetry 96 97 Oxygen Delivery Method 02/26/23 17:50 02/26/23 18:00 02/26/23 18:00 Temperature Pulse Rate 72 Respiratory Rate 26 H Blood Pressure 129/74 161/86 H Pulse Oximetry 96 Oxygen Delivery Method Oxygen Delivery Method Room Air Narrative Exam Narrative: GEN: no acute distress CV: regular rate and rhythm, no murmurs PULM: clear bilaterally EXT: Left wrist in splint, left leg being splinted NEURO: awake, alert, slurred speech at baseline per family Objective Labs 02/26/23 14:17 02/26/23 14:17 Labs: Laboratory Results - last 24 hr 02/26/23 02/26/23 14:17 17:53 WBC 8.9 RBC 4.10 Hgb 13.0 Hct 37.6 MCV 91.6 MCH 31.7 MCHC 34.6 RDW 12.9 Plt Count 183 Neut % (Auto) 79.6 H Lymph % (Auto) 11.9 L [place] % (Auto) 7.9 Eos % (Auto) 0.4 L Baso % (Auto) 0.2 Neut # (Auto) 7100 H Lymph # (Auto) 1100 [place] # (Auto) 700 Eos # (Auto) 0 Baso # (Auto) 0 PT 13.4 H INR 1.2 Sodium 137 Potassium 4.1 Chloride 102 Carbon Dioxide 26 BUN 36 H Creatinine 0.66 Estimated GFR > 60 BUN/Creatinine Ratio 54.5 H Glucose 123 H Calcium 10.1 Total Bilirubin 1.0 AST 28 ALT 19 Alkaline Phosphatase 79 Total Creatine Kinase 33 Troponin I < 0.012 Total Protein 8.4 H Albumin 4.6 Globulin 3.8 Albumin/Globulin Ratio 1.2 Lipase 124 TSH 0.25 L Urine Color Yellow Urine Appearance Clear Urine pH 5.5 Ur Specific [place] >=1.030 H Urine Protein Negative Urine Glucose (UA) Negative Urine Ketones Trace H Urine Occult Blood Negative Urine Nitrate Positive H Urine Bilirubin Negative Urine Urobilinogen 0.2 Ur Leukocyte Esterase 1+ H Urine RBC 0-1/hpf Urine WBC 10-30/hpf H Ur Squamous Epith Cells 1-5 /hpf Ur Transition Epith Cell 1-5/hpf Ur Renal Epithelial Cell 0-1/hpf Urine Bacteria Many (>30) H Ur Culture Indicated? Specimen cultured Assessment & Plan Assessment & Plan narrative: 1. Acute left tibial/fibula fracture and left ulnar sytloid fracture -NPO at midnight for plan for OR -IV pain medications ordered -ortho surgery aware 2. History of metastatic lung cancer -per family in remission, with no evidence of active disease, last seen oncology in September 2022 -off keytruda now 3. CLL -monitor as outpatient 4. Alcoholic cirrhosis -noted in history -no evidence of decompensation 5. Hypothyroidism -continue synthroid 6. 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 Hypertension -hold home meds for now CODE: Full PRoxy: Farhat Li, spouse I have discussed plan and obtained history from patient and spouse at bedside. I have discussed plan of care with ED physician and bedside nurse. I have reviewed labs, imaging. Quality MIPS - Meds 'Current medications' to include all prescriptions, [id number] products, herbals, cannabis/cannabidiol products, and vitamin/mineral/dietary (nutritional) supplements. I have utilized all available resources to obtain, update, or review the patient?s current medications. [If Yes, STOP here]: Yes
[2023-02-26 19:19] LABS: Free T4, Direct Thyroxine 1.71 ng/dL (0.78-2.19)
[2023-02-27] VITALS (12 sets, daily range): BP systolic 136–178; BP diastolic 75–95; PULSE 67–89; RESP 12–19; TEMP 35.9–36.9; O2SAT 92–97; BMI 20.5
[2023-02-27] MEDS: ACETAMINOPHEN 325 MG TABLET 650 MG PO (01:07)
[2023-02-27] MEDS: OXYCODONE IR 5 MG TABLET PO ×2 (01:07→19:35)
[2023-02-27] MEDS: MORPHINE 4 MG/ML INJ 3 MG IV ×3 (01:46→20:48)
[2023-02-27 06:33] LABS: Add Manual Diff / Slide Review NO; Basophils Absolute Auto 0 /uL (0-100); Basophils Percent Auto 0.4 % (0-2); Eosinophils Absolute Auto 100 /uL (0-450); Eosinophils Percent Auto 1.7 % (2-4); Hematocrit 32.7 % (36-46); Hemoglobin 11.3 g/dL (12.0-16.0); Lymphocytes Absolute Auto 1600 /uL (1100-4500); Lymphocytes Percent Auto 25.8 % (25-40); Mean Corpuscular HGB Conc 34.6 % (30-36); Mean Corpuscular Hemoglobin 32.1 PG (26-34); Mean Corpuscular Volume 92.8 fL (80-100); Monocytes Absolute Auto 700 /uL (0-900); Monocytes Percent Auto 11.6 % (3-14); Neutrophils Absolute Auto 3700 /uL (1500-7000); Neutrophils Percent Auto 60.5 % (50-75); Platelet Count 155 X10^3/uL (150-400); Red Blood Cell Count 3.52 X10^6/uL (4.0-5.2); Red Cell Distribution Width 13.3 % (11.6-14.8)
[2023-02-27 06:43] LABS: Alanine Aminotransferase 16 IU/L (<35); Albumin 4.1 g/dL (3.5-5.0); Albumin Globulin Ratio 1.2 (1.0-2.8); Alkaline Phosphatase 66 U/L (38-126); Aspartate Aminotransferase 25 IU/L (14-36); BUN Creatinine Ratio 51.6 (6-22); Bilirubin Total 1.4 mg/dL (0.2-1.3); Blood Urea Nitrogen 32 mg/dL (7-17); Calcium 9.5 mg/dL (8.4-10.2); Carbon Dioxide 25 mmol/L (22-32); Chloride 103 mmol/L (98-107); Estimated Glomerular Filt Rate > 60 mL/min (>60); Globulin 3.3 g/dL (1.7-4.1); Glucose 105 mg/dL (80-110); HEMOLYSIS < 15 (0-50); Potassium 4.3 mmol/L (3.4-5.1); Sodium 135 mmol/L (137-145); Total Protein 7.4 g/dL (6.3-8.2)
--- NOTE | 2023-02-27 09:55 | SUR.PREOP ---
See new order for Duchuyb from [facility]. See med list.
--- NOTE | 2023-02-27 10:43 | PC.NURSE ---
Day shift: Off unit for procedure at approx 1045.
--- NOTE | 2023-02-27 11:07 | PM.HP.1 ---
History of Present Illness History of Present Illness Date Patient Seen: 02/27/23 Time Patient Seen: 11:07 Date of Onset of Symptoms: 02/26/23 Chief complaint: fell ankle or lt foot injured Narrative: Laisha is a pleasant 67-year-old female with past medical history of breast cancer, with brain metastases status post radiation and left-sided weakness here with her for evaluation and preoperative assessment for her left tibia and left distal radius. She was previously scheduled today for operative fixation of her left distal radius fracture however, she fell last night sustaining a left tibia fracture. After she went to the [facility] Emergency Department, she was placed into a short-leg splint and admitted. Plan is for me to fix both of her tibia and her distal radius. [facility] Medical History Malignant neoplasm of unspecified site of unspecified female breast Easy bruisability Pain Port-A-Cath in place (~2018) Alcoholic cirrhosis Hypertension Arthritis Lung cancer Impaired vision Hepatitis C Current every day smoker Lung cancer metastatic to brain Depression Anxiety Adenopathy Chronic fatigue Surgical History History of orthopedic surgery (09/27/21) History of surgery (07/07/19) S/P dissection of cervical lymph nodes (01/16/19) History of colon surgery (~08/2016) Family History Mother Cancer Social History marital status: household members: spouse Smoking Status: Former smoker alcohol intake: current substance use type: marijuana Meds Home Medications and Allergies Home Medications Medication Instructions Recorded Confirmed Type naproxen sodium 220 mg tablet 220 mg PO BID PRN Pain 03/02/19 02/26/23 History (Aleve) clonidine HCl 0.1 mg tablet 0.1 mg PO DAILY PRN pre-procedure 11/09/20 02/26/23 Rx #10 tabs lorazepam 0.5 mg tablet 0.5 mg PO DAILY PRN anxiety #4 tabs 11/09/20 02/26/23 Rx lidocaine-prilocaine 2.5 %-2.5 % 1 applic topical PRN PRN pain #30 08/03/21 02/26/23 Rx topical cream grams oxycodone-acetaminophen 5 mg-325 1 tab PRN PRN Pain (Scale Score 10/12/21 02/26/23 History mg tablet 4-6) levothyroxine 50 mcg tablet 50 mcg PO DAILY hypothyroidism #30 06/07/22 02/26/23 Rx tabs lisinopril 10 mg tablet 10 mg PO DAILY #30 tabs 06/07/22 02/26/23 Rx levothyroxine 75 mcg tablet 75 mcg PO DAILY Hypothyroidism #30 10/04/22 02/26/23 Rx tabs oxycodone-acetaminophen 5 mg-325 1 tab PO QID PRN pain #14 tabs 02/04/23 02/26/23 Rx mg tablet (Percocet) Allergies Allergy/AdvReac Type Severity Reaction Status Date / Time hydrocodone AdvReac Mild Nausea Verified 02/08/23 10:30 Review of Systems Review of Systems ROS: Yes All systems reviewed with the patient and are negative except as otherwise documented Exam Vital Signs (past 8 hours): - 02/27/23 06:15 02/27/23 08:05 Temperature 96.6 F L 98.4 F Pulse Rate 70 73 Respiratory Rate 19 16 Blood Pressure 141/78 H 138/75 Pulse Oximetry 96 92 Oxygen Flow Rate 0 Oxygen Delivery Method Room Air Oxygen Flow Rate 0 Narrative Exam Narrative: HEENT: Head atraumatic eyes anicteric moist mucous membranes Cardiovascular: Palpable peripheral pulses extremities are warm and well perfused Respiratory: Breathing comfortably on room air Psychiatric: Appropriate mood and affect Neuro: No acute deficits Musculoskeletal: Exam of left upper extremity demonstrates some bruising, able to give thumbs up, cross fingers, make A-OK sign, sensation intact to light touch in median, radial, ulnar nerve distributions. Exam of her left lower extremity demonstrates short-leg splint in place sensation intact to the sural, saphenous, superficial peroneal, deep peroneal and tibial nerve distributions. Objective Imaging Left tibia two views: My impression: AP and lateral left tibia demonstrates a midshaft tibia fracture Labs 02/27/23 06:23 02/27/23 06:23 Labs: Laboratory Results - last 24 hr 02/26/23 02/26/23 02/27/23 14:17 17:53 06:23 WBC 8.9 6.0 RBC 4.10 3.52 L Hgb 13.0 11.3 L Hct 37.6 32.7 L MCV 91.6 92.8 MCH 31.7 32.1 MCHC 34.6 34.6 RDW 12.9 13.3 Plt Count 183 155 Neut % (Auto) 79.6 H 60.5 Lymph % (Auto) 11.9 L 25.8 [place] % (Auto) 7.9 11.6 Eos % (Auto) 0.4 L 1.7 L Baso % (Auto) 0.2 0.4 Neut # (Auto) 7100 H 3700 Lymph # (Auto) 1100 1600 [place] # (Auto) 700 700 Eos # (Auto) 0 100 Baso # (Auto) 0 0 PT 13.4 H INR 1.2 Sodium 137 135 L Potassium 4.1 4.3 Chloride 102 103 Carbon Dioxide 26 25 BUN 36 H 32 H Creatinine 0.66 0.62 Estimated GFR > 60 > 60 BUN/Creatinine Ratio 54.5 H 51.6 H Glucose 123 H 105 Calcium 10.1 9.5 Total Bilirubin 1.0 1.4 H AST 28 25 ALT 19 16 Alkaline Phosphatase 79 66 Total Creatine Kinase 33 Troponin I < 0.012 Total Protein 8.4 H 7.4 Albumin 4.6 4.1 Globulin 3.8 3.3 Albumin/Globulin Ratio 1.2 1.2 Lipase 124 TSH 0.25 L Free T4 1.71 Urine Color Yellow Urine Appearance Clear Urine pH 5.5 Ur Specific [place] >=1.030 H Urine Protein Negative Urine Glucose (UA) Negative Urine Ketones Trace H Urine Occult Blood Negative Urine Nitrate Positive H Urine Bilirubin Negative Urine Urobilinogen 0.2 Ur Leukocyte Esterase 1+ H Urine RBC 0-1/hpf Urine WBC 10-30/hpf H Ur Squamous Epith Cells 1-5 /hpf Ur Transition Epith Cell 1-5/hpf Ur Renal Epithelial Cell 0-1/hpf Urine Bacteria Many (>30) H Ur Culture Indicated? Specimen cultured Assessment & Plan Assessment & Plan narrative: Assessment: 67-year-old female with left distal radius and left tibia fracture, currently hemodynamically stable Plan: Discussed operative fixation of both left distal radius and left tibia. Discussion was mostly had with her as patient is slightly confused, which is her baseline. Risks and benefits of surgery were discussed again including the risk of infection, damage to internal structures, bleeding, nerve injury, instability, need for revision surgery, blood clots, anesthesia and . No guarantees were made regarding outcomes. Patient expressed understanding and accepted these risks and wished to go forward with surgery and consent was signed.
[2023-02-27] MEDS: LACTATED RINGERS 1,000 ML 100 ML IV ×2 (11:11→12:51)
[2023-02-27] MEDS: CEFAZOLIN 2 GM/100 ML PREMIX 100 ML IV (12:00)
[2023-02-27] MEDS: BUPIVACAINE 0.5% (PF) 30 ML, EPINEPHrine 0.15 MG INJ (12:59)
--- NOTE | 2023-02-27 12:59 | PC.NURSE ---
Day shift: Pt remains off unit at this time (1300).
--- NOTE | 2023-02-27 13:18 | CM.DPC ---
DCP Cont. Reviewed EMR and team rounds for pt's medical status and initial anticipated d/c needs. Pt was in surgery at the time of this note, they will do both her wrist and leg fractures. Her spouse is very involved and is vital in her care coordination and support needs. Called and left her , Farhat, a message asking for his return call to help us know his preference for her at d/c for either SNF rehab or home w/HH. Her care needs are complicated by cognitive/functional impairments from metastatic lung cancer to the brain. DCP to cont. to follow and assist as needed.
--- NOTE | 2023-02-27 13:18 | SUR.OPER ---
Supine on padded Delbert table, head on pillow, right arm secured on padded arm board at <90 degrees abduction, Left arm on padded arm table under control of surgeon. Legs uncrossed, tape over blanket over right lower leg and left leg on stack of blankets under control of surgeon.
--- NOTE | 2023-02-27 15:00 | PM.OP.1 ---
Operative Date/Time/Diagnoses Date of procedure: 02/27/23 Time of procedure: 15:00 Pre-op diagnosis: 1. Left tibia shaft fracture 2. Left distal radius fracture 3. Left brachioradialis contracture Post-op diagnosis: same Procedure & Clinicians Procedure: 1. Intramedullary nail left tibia shaft 2. ORIF left distal radius fracture, extra-articular 3. Left brachioradialis contracture release Same procedure as scheduled: Yes Indications: This is a 67-year-old female who was previously scheduled for operative fixation of a left distal radius after her conservative management failed. She fell the night before surgery fracturing her left tibia, midshaft. For this reason we discussed operative fixation of both her left tibia and her distal radius. Risks and benefits of surgery were discussed again including the risk of infection, damage to internal structures, bleeding, nerve injury, instability, need for revision surgery, blood clots, anesthesia and . No guarantees were made regarding outcomes. Patient expressed understanding and accepted these risks and wished to go forward with surgery and consent was signed. Surgeon: Shakir Tiwari Click Yes if Unassisted: Yes Anesthesia Type: General Operative Notes Findings: Left midshaft tibia fracture, left brachioradialis contracture, and extra-articular left distal radius fracture Closure Type: primary Specimen(s): none sent Prosthetic devices, grafts, tissues, transplants, or devices: Size 10 Shaffer and Nephew tibial nail with 2 proximal and 2 distal interlocking screws Acumed narrow distal radius plate Estimated Blood Loss (mL): 50 Tourniquet time (min): 45 Procedure in detail: Patient was met in the preoperative holding area. Her left upper extremity and left lower extremity were examined and marked with my initials. We again went over consent discussed the risks including the risks of bleeding, infection, damage to internal structures including the radial artery and median nerve, numbness and tingling, failure of implants, malunion, and future surgery. All of her questions were answered fully to her satisfaction and she wished to go forward with the surgery. She was brought back to the operating room and placed supine on operating table. She underwent smooth induction of anesthesia and antibiotics were given. Tourniquets were applied to the left upper and left lower extremity. They were both prepped with chlorhexidine in the standard sterile fashion. The left upper extremity was then draped with an extra drape over the top. A time-out was performed and my initials were again confirmed on the left lower extremity. I began with a 2 cm incision over the quadriceps tendon and through the tendon. The leg was elevated on towel bumps and a guide was used to find the starting point on the AP and the lateral. A guide pin was placed into the tibia followed by an opening Reamer. A ball-tipped guidewire was passed, past the fracture in center center in the distal tibia. The tibia was then sequentially reamed starting at a 9 Reamer going up to a 11-,1/2. The length of the nail was measured and a size 10 nail was selected. This was impacted past the fracture during slight traction and reduction was maintained. Her length of the nail was appropriate on AP and lateral imaging. The proximal interlocking screws were then placed using the interlocking jig. Last, the distal screws were placed with perfect [place] technique. Final radiographs were obtained demonstrating appropriate fracture reduction, length and alignment. As well as screw length. Incisions were irrigated and closed with 2-0 Vicryl and narciso. The wounds were dressed with Xeroform, 4x4s, Tegaderm, Dev wrap and then placed into a tall walking boot. A new time-out was performed for the 2nd half of the procedure. My initials were again confirmed on the left upper extremity We began with a modified Yamil approach to the volar distal radius on the left side. FCR and FPL were retracted ulnarly and the radial artery was retracted radially. Pronator quadratus was elevated off of the distal radius and the fracture was encountered. The brachioradialis was noted to be contracted limiting my reduction of the radial styloid. Given the chronic nature of fracture, I released the brachioradialis off of the styloid. A manual reduction was performed and a K-wire was placed through the radial styloid to hold the reduction. An Acumed distal radius locking plate was applied to the distal radius and positioned provisionally with K-wires. The oblong shaft screw was then filled with a nonlocking cortical screw. We then sequentially filled the distal locking holes with locking screws. We then returned to the shaft and filled the last 2 remaining nonlocking cortical holes. The provisional K-wire was removed and final images were obtained confirming screw length and maintenance of reduction. Skin was then closed with 3-0 Vicryl and 3-0 nylon. Wound was then dressed with Xeroform, 4x4s, cast padding and a volar splint. Complications: none Post-operative Condition: stable Disposition: PACU Plan for aftercare: Postop she will be weight-bearing as tolerated on the left lower extremity, okay to remove dressings and shower on postop day 3 (Saturday). Replace dressings with Band-Aids and Dev wrap. With regards to the left upper extremity, splint is to remain on for 6 weeks.
--- NOTE | 2023-02-27 15:10 | PC.NURSE ---
Day shift: Pt back in room at approx 1500 from PACU. CMS ok and good cap refill present. LEft leg in boot and left wrist with brace in place. Pt able to answer yes/no questions. Dr Bains assessed Pt just now as well and thinks she is more confused at this time. No s/s of pain. Denies any pain. Bed alarm is on. post-op vitals per protocol. Will place SCD on rt leg. BP elevated 178/83. 2L NC 93%. Call light in reach. Door to room will remain open for safety.
--- NOTE | 2023-02-27 15:46 | PM.PN.1 ---
Subjective Subjective Date Patient Seen: 02/27/23 Time Patient Seen: 08:00 Interval history: She is seen immediately upon returning to her room from surgery. She is sleepy, and slightly confused. She denies pain. Exam Vital Signs (past 8 hours): - 02/27/23 08:05 02/27/23 11:02 02/27/23 14:21 Temperature 98.4 F 98.4 F 97.1 F L Pulse Rate 73 75 75 Respiratory Rate 16 16 12 Blood Pressure 138/75 151/87 H 169/85 H Pulse Oximetry 92 96 95 Oxygen Delivery Method Room Air Nasal Cannula Oxygen Flow Rate 3 02/27/23 14:26 02/27/23 14:32 02/27/23 14:41 Temperature 97.1 F L 97.1 F L 97.1 F L Pulse Rate 79 80 78 Respiratory Rate 12 14 12 Blood Pressure 161/84 H 148/95 H 159/80 H Pulse Oximetry 97 97 96 Oxygen Delivery Method Nasal Cannula Nasal Cannula Nasal Cannula Oxygen Flow Rate 2 2 2 Oxygen Delivery Method Nasal Cannula Oxygen Flow Rate 2 Narrative Exam Narrative: GEN: no acute distress, slightly lethargic CV: regular rate and rhythm EXT: left arm in splint, leg leg wrapped Objective Labs 02/27/23 06:23 02/27/23 06:23 Labs: Laboratory Results - last 24 hr 02/26/23 02/26/23 02/27/23 14:17 17:53 06:23 WBC 8.9 6.0 RBC 4.10 3.52 L Hgb 13.0 11.3 L Hct 37.6 32.7 L MCV 91.6 92.8 MCH 31.7 32.1 MCHC 34.6 34.6 RDW 12.9 13.3 Plt Count 183 155 Neut % (Auto) 79.6 H 60.5 Lymph % (Auto) 11.9 L 25.8 [place] % (Auto) 7.9 11.6 Eos % (Auto) 0.4 L 1.7 L Baso % (Auto) 0.2 0.4 Neut # (Auto) 7100 H 3700 Lymph # (Auto) 1100 1600 [place] # (Auto) 700 700 Eos # (Auto) 0 100 Baso # (Auto) 0 0 PT 13.4 H INR 1.2 Sodium 137 135 L Potassium 4.1 4.3 Chloride 102 103 Carbon Dioxide 26 25 BUN 36 H 32 H Creatinine 0.66 0.62 Estimated GFR > 60 > 60 BUN/Creatinine Ratio 54.5 H 51.6 H Glucose 123 H 105 Calcium 10.1 9.5 Total Bilirubin 1.0 1.4 H AST 28 25 ALT 19 16 Alkaline Phosphatase 79 66 Total Creatine Kinase 33 Troponin I < 0.012 Total Protein 8.4 H 7.4 Albumin 4.6 4.1 Globulin 3.8 3.3 Albumin/Globulin Ratio 1.2 1.2 Lipase 124 TSH 0.25 L Free T4 1.71 Urine Color Yellow Urine Appearance Clear Urine pH 5.5 Ur Specific [place] >=1.030 H Urine Protein Negative Urine Glucose (UA) Negative Urine Ketones Trace H Urine Occult Blood Negative Urine Nitrate Positive H Urine Bilirubin Negative Urine Urobilinogen 0.2 Ur Leukocyte Esterase 1+ H Urine RBC 0-1/hpf Urine WBC 10-30/hpf H Ur Squamous Epith Cells 1-5 /hpf Ur Transition Epith Cell 1-5/hpf Ur Renal Epithelial Cell 0-1/hpf Urine Bacteria Many (>30) H Ur Culture Indicated? Specimen cultured [facility] Medical History Malignant neoplasm of unspecified site of unspecified female breast Easy bruisability Pain Port-A-Cath in place (~2018) Alcoholic cirrhosis Hypertension Arthritis Lung cancer Impaired vision Hepatitis C Current every day smoker Lung cancer metastatic to brain Depression Anxiety Adenopathy Chronic fatigue Surgical History History of orthopedic surgery (09/27/21) History of surgery (07/07/19) S/P dissection of cervical lymph nodes (01/16/19) History of colon surgery (~08/2016) Family History Mother Cancer Social History marital status: household members: spouse Smoking Status: Former smoker alcohol intake: current substance use type: marijuana Assessment & Plan Assessment & Plan narrative: 1. Acute left tibial/fibula fracture and left ulnar sytloid fracture -s/p repair left left tibia and left distal radius on 02/27 -IV pain medications ordered -ortho consulted 2. History of metastatic lung cancer -per family in remission, with no evidence of active disease, last seen oncology in September 2022 -off keytruda now 3. CLL -monitor as outpatient 4. Alcoholic cirrhosis -noted in history -no evidence of decompensation 5. Hypothyroidism -continue synthroid 6. 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 Hypertension -hold home meds for now
--- NOTE | 2023-02-27 18:22 | PC.NURSE ---
Day shift: Dr Bains made aware of Pt's elevated BP post-op today. No new orders.
--- NOTE | 2023-02-27 18:46 | PC.NURSE ---
Day shift: Pt states I'm going home with my tonight right?. Remains calm and cooperative. Denies any pain or nausea. PPP and radial pulses present. Good cap refill. Did not work with PT post-op today. No IV fluids at this time per Dr Dietz. Bed alarm is on. Call light in reach. Door to room open for safety. has been at bedside this afternoon and this evening.
[2023-02-28 00:33] VITALS: BP 139/85; PULSE 97; RESP 18; TEMP 36.1; O2SAT 93
[2023-02-28] MEDS: OXYCODONE IR 5 MG TABLET PO ×6 (03:20→21:50)
[2023-02-28] MEDS: ACETAMINOPHEN 325 MG TABLET 650 MG PO ×3 (03:20→21:50)
[2023-02-28 03:30] VITALS: BP 155/81; PULSE 104; RESP 18; TEMP 36.3; O2SAT 91
[2023-02-28] MEDS: LEVOTHYROXINE 75 MCG TABLET PO (06:08)
[2023-02-28 07:26] LABS: Hematocrit 26.3 % (36-46); Hemoglobin 9.2 g/dL (12.0-16.0); Mean Corpuscular HGB Conc 35.2 % (30-36); Mean Corpuscular Hemoglobin 32.7 PG (26-34); Mean Corpuscular Volume 92.9 fL (80-100); Platelet Count 132 X10^3/uL (150-400); Red Blood Cell Count 2.83 X10^6/uL (4.0-5.2); Red Cell Distribution Width 13.3 % (11.6-14.8); White Blood Cell Count 10.2 X10^3/uL (4.5-11.0)
[2023-02-28 07:39] LABS: BUN Creatinine Ratio 32.3 (6-22); Blood Urea Nitrogen 21 mg/dL (7-17); Carbon Dioxide 26 mmol/L (22-32); Chloride 101 mmol/L (98-107); Estimated Glomerular Filt Rate > 60 mL/min (>60); Glucose 126 mg/dL (80-110); HEMOLYSIS < 15 (0-50); Potassium 4.2 mmol/L (3.4-5.1); Sodium 134 mmol/L (137-145)
[2023-02-28] MEDS: cefTRIAXone 1,000 MG in SODIUM CHLORIDE 0.9% 100 ML 200 MG IV (09:30)
--- NOTE | 2023-02-28 11:51 | PM.PN.1 ---
Subjective Subjective Interval history: Patient is confused. at bedside and says this is pretty much her baseline. She knows she is in the hospital, but not the day, month or year. Says she [place] on [place]. Cannot name the president. Exam Vital Signs (past 8 hours): Oxygen Delivery Method Room Air Oxygen Flow Rate 2 Narrative Exam Narrative: GEN: no acute distress, confused CV: regular rate and rhythm EXT: left arm in splint, left leg wrapped Objective Labs 02/28/23 06:48 02/28/23 06:48 Labs: Laboratory Results - last 24 hr 02/28/23 06:48 WBC 10.2 D RBC 2.83 L Hgb 9.2 L Hct 26.3 L MCV 92.9 MCH 32.7 MCHC 35.2 RDW 13.3 Plt Count 132 L Sodium 134 L Potassium 4.2 Chloride 101 Carbon Dioxide 26 BUN 21 H Creatinine 0.65 Estimated GFR > 60 BUN/Creatinine Ratio 32.3 H Glucose 126 H Calcium 9.0 PFSH Medical History Malignant neoplasm of unspecified site of unspecified female breast Easy bruisability Pain Port-A-Cath in place (~2018) Alcoholic cirrhosis Hypertension Arthritis Lung cancer Impaired vision Hepatitis C Current every day smoker Lung cancer metastatic to brain Depression Anxiety Adenopathy Chronic fatigue Surgical History History of orthopedic surgery (09/27/21) History of surgery (07/07/19) S/P dissection of cervical lymph nodes (01/16/19) History of colon surgery (~08/2016) Family History Mother Cancer Social History marital status: household members: spouse Smoking Status: Former smoker alcohol intake: current substance use type: marijuana Assessment & Plan Assessment & Plan narrative: 1. Acute left tibial/fibula fracture and left ulnar sytloid fracture -s/p repair left left tibia and left distal radius on 02/27 -IV pain medications ordered -ortho consulted -PT/OT ordered 2. History of metastatic lung cancer -per family in remission, with no evidence of active disease, last seen oncology in September 2022 -off keytruda now 3. CLL -monitor as outpatient 4. Alcoholic cirrhosis -noted in history -no evidence of decompensation 5. Hypothyroidism -continue synthroid 6. 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 Hypertension -hold home meds for now Dispo: Pending PT/OT evals.
--- NOTE | 2023-02-28 12:10 | PT.IIE ---
Current Diagnoses Unspecified fracture of shaft of left tibia, initial encounter for closed fracture (02/26/23) Surgery Performed Operation Date: 02/27/23 11:45 Actual Procedures p ORIF distal radius fracture(Left) - Shakir Tiwari MD s Intramedullary Nailing Tibia - Shakir Tiwari MD Surgical History (Last Reviewed 02/26/23 @ 18:44 by Rocco Bains MD) History of colon surgery (~08/2016) History of orthopedic surgery (09/27/21) History of surgery (07/07/19) S/P dissection of cervical lymph nodes (01/16/19) Medical History (Last Reviewed 02/27/23 @ 11:09 by Shakir Tiwari MD) Adenopathy Alcoholic cirrhosis Anxiety Arthritis Chronic fatigue Current every day smoker Depression Easy bruisability Hepatitis C Hypertension Impaired vision Lung cancer Lung cancer metastatic to brain Malignant neoplasm of unspecified site of unspecified female breast Pain Port-A-Cath in place (~2018) Physical Therapy Inpatient Evaluation/Re-Eval M1 PT/OT-IP Prior Functional Status Start: 02/28/23 12:22 Freq: NEEDED Status: Active Protocol: Document 02/28/23 12:22 AB (Rec: 02/28/23 12:55 AB [id number]) Medical Review Prior Functional Status Medical History Reviewed Yes Communication Pt is able to make needs known . Mobility and Gait Per pt's spouse, the pt is mostly w/c bound but is able to ambulate short distances with maxA from him to get from bed to bathroom, bed to w/c in their RV. Activities of Daily Living and IADL's Pt requires assistance for all ADLs and IADLs. She typically receives sponge baths, but will occasionally go to her daughter's house to get a shower, as her walk-in shower is easier to access. Prior Functional Level (Other details) Per pt's spouse, she is dependent for stairs: the pt sits in the w/c and her spouse pulls the w/c up the steps into the house. Social History Household Members spouse,children Living Arrangements House Number of Floors (Floors) One Floor Number of Stairs To Enter/Railing? 4 PEPPER Home Environment Standard Height Toilet,Walk in Shower Home Equipment Front Wheel Walker,Manual Wheelchair,Raised Toilet Seat w/Armrests,Grab Bars Near Toilet Additional Social History Comment Prior to this injury the pt's spouse would check on the pt every hour when he is at work. However he states he will take time off to be there 19/11 . M2 PT-IP Current Condition Start: 02/28/23 12:22 Freq: NEEDED Status: Active Protocol: Document 02/28/23 12:22 AB (Rec: 02/28/23 12:55 AB [id number]) Physical Therapy Current Condition Current Condition Evaluation Date 02/28/23 Treatment Diagnosis s/p operative fixation left tibia, ORIF distal radius Onset Date 02/27/23 M3 PT-IP Subjective Start: 02/28/23 12:22 Freq: NEEDED Status: Active Protocol: Document 02/28/23 12:22 AB (Rec: 02/28/23 12:55 AB [id number]) Subjective Physical Therapy Visit Type Type Initial Evaluation Visit Start Time 11:10 Visit Stop Time 12:10 Total Visit Minutes 60 Physical Therapy Visit Comments Patient Comments Pt presents semi supine in bed with spouse at bedside. She is agreeable to PT and OT evaluation. Therapy Pain Assessment Pain When Pain Assessed During Mobility Pain Present Pain Present Pain Reported Location Left Lower Leg Scale Used Unable to quantify Description With Movement Pain Behaviors Facial Grimacing,Wincing Pain Management Techniques Elevation,Re-positioning M4 PT-IP Mobility and Gait Start: 02/28/23 12:22 Freq: NEEDED Status: Active Protocol: Document 02/28/23 12:22 AB (Rec: 02/28/23 12:55 AB [id number]) PT-Bed Mobility Assessment Rolling Type of Rolling Roll to Left Level of Assist Minimal Assistance,1 Person Assistance Supine to Sit Supine to Sit Moderate Assistance,1 Person Assistance,Head of Bed Elevated Scooting Scooting to Edge of Bed Moderate Assistance PT-Transfer Assessment Sit to and From Stand Sit to and from Stand Moderate Assistance,2 Person Assistance Equipment Transfer Assistive Device Gait Belt Transfers Transfer Destination Chair Transfer Technique Squat Pivot Transfer Ability Level of Assist Maximum Assistance,Total Assistance,2 Person Assistance Comments Mobility Comments The pt is able to lift LEs to move them to EOB, but requires Luly to roll left. She then required modA x1 to get to sitting, with PT assisting trunk/UEs and HOB slightly elevated. The pt required modA to scoot to EOB. Once sitting at EOB, the pt performed first STS with maxA x2, but did not tolerate much time standing due to pain and is not able to achieve fully erect posture, however spouse reports she typically does not stand up fully at baseline. Attempted to perform stand step pivot transfer, however pt has difficulty moving BLEs, especially LLE due to weakness and additional weight of walking boot. The pt sat down again, and squat pivot transfer was performed with time with spouse assisting to transfer pt, OT helping to guide pt to chair and PT assisting with moving LLE, requiring maxA x3/total assistance. The pt refused to attempt going back to bed, therefore ended session with pt in chair. All needs were met, call light is within reach and spouse is in room. Gait Assessment Comments Gait Comments Not assessed this session due to pain, weakness. Stair Climbing Assessment Comments Stair Climbing Comments Did not perform at PLOF. PT-Balance Assessment Sitting Balance and Reactions Static Sitting Balance Ability Fair Dynamic Sitting Balance Ability Poor Standing Balance and Reactions Static Standing Balance Ability Poor Dynamic Standing Balance Ability Poor M5 PT-IP Objective Assessments Start: 02/28/23 12:22 Freq: NEEDED Status: Active Protocol: Document 02/28/23 12:22 AB (Rec: 02/28/23 12:55 AB [id number]) Orientation Orientation/Cognition Level of Alertness Confusional State Orientation Name Safety Awareness Decreased Safety Awareness Memory Description Short Term Impaired Gross Range of Motion Upper Extremity ROM Assessment Left Impaired Lower Extremity ROM Assessment Left Impaired Strength Upper Extremity Strength Assessment Left Impaired Lower Extremity Strength Assessment Left Impaired M6 PT-IP Treatment Start: 02/28/23 12:22 Freq: NEEDED Status: Active Protocol: Document 02/28/23 12:22 AB (Rec: 02/28/23 12:55 AB [id number]) Physical Therapy Treatment Education Education Provided Precautions,Weight Bearing Status,Safety Brace Education Patient,Caregiver M7 PT-IP Assessment and Plan Start: 02/28/23 12:22 Freq: NEEDED Status: Active Protocol: Document 02/28/23 12:22 AB (Rec: 02/28/23 12:55 AB [id number]) PT Summary Assessment and Plan Potential Rehabilitation Potential Fair Status of Condition at Evaluation Stable Summary Impairments Pain,ROM,Strength,Balance, Coordination,Cognition,Bed Mobility,Transfers,Gait, Activity Tolerance Assessment Summary Laisha Li is a 67 year old female patient who is s/p operative fixation of left tibia and ORIF of distal radius. The pt's has a low PLOF due to her medical history and is mostly w/c bound or requires maxA from her spouse. The pt required modA x1 for bed mobility, modA x2 for STS, and maxA x3/total assistance for squat pivot transfer as detailed above. Based on her current level of function, the pt would benefit from discharge to SNF to improve her level of function prior to discharging to home. However, due to concerns regarding her cognition, discharge to home with additional assistance including home health PT may be recommended instead. The pt would benefit from skilled PT during the course of her hospitalization to improve to her highest level of function. Goals Bed Mobility Goal Minimal Assistance Transfer Goal Moderate Assistance Gait Goal Maximal Assistance Gait Distance 10 Other Goals Pt to be able to transfer with modA x1 to demonstrate return to PLOF. Pt to be able to ambulate with maxA x1 to demonstrate return to PLOF. Days to Meet Goals 5 Frequency of Treatment Frequency Of Treatment Twice a Day Treatment Plan Physical Therapy Treatment Plan Bed Mobility Training,Transfer Training,Gait Training, Therapeutic Exercise,Balance Retraining,Post Op Education, Discharge Planning,Hot or Cold Pack,Neuromuscular Re-ed, Coordination Retraining,Manual Therapy Other Recommendations and Next Treatment Work on transfers with spouse. Focus Precautions Other Precautions LLE WBAT in walking boot; LUE NWB in splint for 6 weeks Weight Bearing Status Weight Bearing Status Weight Bear as Tolerated Recommendations To Nursing Amount of Assist Needed PT/OT Assist Only,Mechanical Lift Discharge Recommendations PT Discharge Recommendations Home vs SNF Equipment Needed for Home Before BSC Discharge Transportation Needs at Discharge Private Vehicle,Wheelchair/ Cabulance
--- NOTE | 2023-02-28 12:10 | OT.IP.EVAL ---
Addendum entered and electronically signed by Sarah Willis OT 02/28/23 13:29: esign Original Note: Current Diagnoses Unspecified fracture of shaft of left tibia, initial encounter for closed fracture (02/26/23) Surgery Performed Operation Date: 02/27/23 11:45 Actual Procedures p ORIF distal radius fracture(Left) - Shakir Tiwari MD s Intramedullary Nailing Tibia - Shakir Tiwari MD Past Medical History (Last Reviewed 02/27/23 @ 11:09 by Shakir Tiwari MD) Adenopathy Alcoholic cirrhosis Anxiety Arthritis Chronic fatigue Current every day smoker Depression Easy bruisability Hepatitis C Hypertension Impaired vision Lung cancer Lung cancer metastatic to brain Malignant neoplasm of unspecified site of unspecified female breast Pain Port-A-Cath in place (~2018) Surgical History (Last Reviewed 02/26/23 @ 18:44 by Rocco Bains MD) History of colon surgery (~08/2016) History of orthopedic surgery (09/27/21) History of surgery (07/07/19) S/P dissection of cervical lymph nodes (01/16/19) Occupational Therapy Inpatient Evaluation/Re-Eval M1 PT/OT-IP Prior Functional Status Start: 02/28/23 13:12 Freq: NEEDED Status: Active Protocol: Document 02/28/23 12:10 [facility] (Rec: 02/28/23 13:26 [facility] [id number]) Medical Review Prior Functional Status Medical History Reviewed Yes Communication Pt is able to make needs known . Mobility and Gait Per pt's spouse, the pt is mostly w/c bound but is able to ambulate short distances with maxA from him to get from bed to bathroom, bed to w/c in their RV. Activities of Daily Living and IADL's Pt requires assistance for all ADLs and IADLs. She typically receives sponge baths, but will occasionally go to her daughter's house to get a shower, as her walk-in shower is easier to access. Prior Functional Level (Other details) Per pt's spouse, she is dependent for stairs: the pt sits in the w/c and her spouse pulls the w/c up the steps into the house. Social History Household Members spouse,children Living Arrangements House Number of Floors (Floors) One Floor Number of Stairs To Enter/Railing? 4 PEPPER Home Environment Standard Height Toilet,Walk in Shower Home Equipment Front Wheel Walker,Manual Wheelchair,Raised Toilet Seat w/Armrests,Grab Bars Near Toilet,Grab Bars In Shower Additional Social History Comment Prior to this injury the pt's spouse would check on the pt every hour when he is at work. However he states he will take time off to be there 19/11 . M2 OT-IP Current Condition Start: 02/28/23 13:12 Freq: Status: Active Protocol: Document 02/28/23 12:10 [facility] (Rec: 02/28/23 13:26 [facility] [id number]) Occupational Therapy Current Condition Current Condition Evaluation Date 02/28/23 Treatment Diagnosis S/P L tibia shaft fx/L distal radius fx/ left brachioradialis contracture Diagnosis Onset Date 02/26/23 Weight Bearing Status Allowed Weight Bearing Amount (enter % WBAT LLE in tall boot, or #) (%) LUE in splint NWB M3 OT- IP Subjective and Pain Start: 02/28/23 13:12 Freq: Status: Active Protocol: Document 02/28/23 12:10 [facility] (Rec: 02/28/23 13:26 [facility] [id number]) OT- Subjective Occupational Therapy Visit Type Type Initial Evaluation Visit Start Time 11:10 Visit Stop Time 12:10 Total Visit Minutes 60 Occupational Therapy Visit Comments Patient Comments Pt's in the room and pt agreed to get up. Patient/Caregiver Goals To get better OT Pain Assessment Pain When Pain Assessed During Mobility Pain Present Pain Present Pain Reported Location Left Lower Leg Pain Behaviors Facial Grimacing,Holding Area, Moaning M4 OT- IP ADL's Start: 02/28/23 13:12 Freq: Status: Active Protocol: Document 02/28/23 12:10 [facility] (Rec: 02/28/23 13:26 [facility] [id number]) OT PAX-Ehjm-[id number] Comments OT Self-Feeding Comments Not at meal time. Per has had to assist her since breaking her wrist. OT ADL-Grooming Comments OT Grooming Comments Not performed. OT ADL-Oral Care Comments Oral Care Comments Not performed. OT ADL-Dressing General Eval Upper Body Dressing Ability Maximum Assistance,Total Assistance Lower Body Dressing Ability Total Assistance Comments OT Dressing Comments Pt will need assist for all need at this time. OT ADL-Toileting General Evaluation Toileting Ability Total Assistance Areas Needing Assistance Empty Catheter or Colostomy Comments OT Toileting Comments Bosch in place. Pt uses Depends at home. Otherwise pt' s has been able to walk with pt a few steps with her to the bathroom. At this time pt will benefit from a BSC. OT ADL-Bathing Bathing Type Bathing Type Bed Bath Comments OT Bathing Comments At this time best to do sponge bath. M5 OT- IP IADL's Start: 02/28/23 13:12 Freq: Status: Active Protocol: Document 02/28/23 12:10 [facility] (Rec: 02/28/23 13:26 [facility] [id number]) OT-Instrumental Activities of Daily Living Deficits IADL Deficits Identified Deficits Home Safety Awareness Awareness of Need for Assistance at Home Decreased Awareness Ability to Problem Solve Emergency Unable to Problem Solve Situations Home Safety Comments Pt assist with all pt's needs at this time. Medication Management Medication Management Caregiver Administers Money Management Money Management Caregiver Provides Assistance Meal Preparation Meal Preparation Caregiver Provides Assist Precision Dancer Precision Dancer Caregiver Provides Assist M6 OT- IP Functional Cognition Start: 02/28/23 13:12 Freq: Status: Active Protocol: Document 02/28/23 12:10 [facility] (Rec: 02/28/23 13:26 [facility] [id number]) Cognitive Factors Limiting Selfcare Function Cognitive Ability Level of Alertness Alert Patient Orientation Name Attention Span Ability Capable of Focused Attention, Capable of Sustained Attention Ability to Follow Commands Able to Follow One Step Commands with Increased Time, Able to Follow One Step Commands with Repetition Memory Description Short Term Impaired Cognitive Comments Cognitive Assessment Comments Pt orientated to her name and able to follow simple commands for mobility needs. OT- Vision and Hearing OT- Hearing Assessment OT- Hearing Assessment WFL OT- Vision Assessment Visual Acuity WFL Visual Attentiveness WFL Occular Pursuits WFL M7 OT- IP Mobility and Balance Start: 02/28/23 13:12 Freq: Status: Active Protocol: Document 02/28/23 12:10 [facility] (Rec: 02/28/23 13:26 [facility] [id number]) OT- Bed Mobility Assessment Rolling Level of Assistance Minimal Assistance Supine to Sit Supine to Sit Assist Moderate Assistance OT-Transfer Assessment Sit to and From Stand Sit to and from Stand Moderate Assistance,2 Person Assistance Transfers Transfer Ability Maximum Assistance,Total Assistance,1 Person Assistance ,2 Person Assistance Technique Transfer Destination Bed,Chair Transfer Technique Squat Pivot Devices Transfer Assistive Devices Gait Belt Comments Mobility Comments MODA to help get pt's trunk upright and LEL out to the end of the bed. MODA X 2 to stand form the bed and unable to move her feet. MAX AX 2 for squat pivot and PT assist to help rotate her LLE as pt having difficulty to lift the walking boot. Asked her to bring in her right shoe for next therapy session. OT- Balance Assessment Sitting Balance and Reactions Static Sitting Balance Ability Fair Dynamic Sitting Balance Ability Poor Standing Balance and Reactions Static Standing Balance Ability Poor Dynamic Standing Balance Ability Poor M8 OT- IP Objective Assessments Start: 02/28/23 13:12 Freq: Status: Active Protocol: Document 02/28/23 12:10 [facility] (Rec: 02/28/23 13:26 [facility] [id number]) OT Gross Range of Motion Upper Extremity Range of Motion Assessment Within Functional Limits OT Strength Upper Extremity Strength Assessment Within Functional Limits Comments Strength Comments BUE 4/5 OT Sensation Assessment Edema Edema Comments LUE swollen and asked nursing to loosen the vanesa wrap on her hand. Able to elevate her left hand on pillows. M9 OT- IP Assessment and Plan Start: 02/28/23 13:12 Freq: Status: Active Protocol: Document 02/28/23 12:10 [facility] (Rec: 02/28/23 13:26 [facility] [id number]) OT Summary Assessment and Plan Potential Rehabilitation Potential Good Analytic Complexity at Evaluation High Summary OT Impairments Pain,Range of Motion,Strength, Balance,Functional Cognition, Functional Mobility,Self- Feeding,Grooming,Dressing, Toileting,Bathing,Toilet Transfers,Shower Transfers, Activity Tolerance Progress Towards Goals Slow Progress due to Pain,Slow Progress due to Medical Issues,Slow Progress due to Activity Tolerance,Slow Progress due to Cognition Assessment Summary Pt high complexity and main barriers are steps, needing extensive 2-3 person assist for squat pivot transfer at this time. Pt will benefit from skilled rehab at this time as pt's current level too great for her to assist at home. Goals Self-Feeding Goal Standby Assistance Grooming Goal Standby Assistance Dressing Goal Moderate Assistance Toileting Goal Moderate Assistance Bathing Goal Moderate Assistance Toilet Transfer Goal Moderate Assistance Shower Transfer Goal Moderate Assistance Patient/Caregiver Education Goal Caregiver Independent Assisting Patient Days to Meet Goals 20 Frequency of Treatment Frequency Of Treatment Once a Day Treatment Plan OT Treatment Plan ADL Training,Functional Cognition Training,Functional Mobility,Patient/Family Education,Discharge Planning Other Treatment Recommendations and Next Transfer stand pivot to the Treatment Focus BSC with MAXAX1. Discharge Recommendations OT Discharge Recommendations SNF Rehab Other Discharge Recommendations Hopefully if pt able to make good progress home with / assist and home health. Home Equipment Needs C Transportation Needs at Discharge Wheelchair/Cabulance
[2023-02-28] MEDS: lisinopriL 10 MG TABLET PO (13:23)
--- NOTE | 2023-02-28 13:35 | CM.DPC ---
DCP Cont: Per MD, pt to work with PT/OT today and remains confused and oriented to self only and likely due to mets to the brain. Per PT/OT, pt below baseline with mobility due to her heavy walking boot on her foot from surgery and her surgery on the tibia/wrist and spouse was able to participate in CG training and feel pt could benefit from SNF but that her cognition might make SNF difficult for her to tolerate vs home with spouse and HH. PT/OT to work with pt and spouse again this PM. SW met bedside with pt and spouse and spoke at length regarding discharge plans and pt's current OBS Status. Spouse confirms that he does not feel pt would likely do well in SNF since she relies heavily on him as her sounding board and as her familiar. 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 Spouse also states he has about 3 weeks of vacation saved up and 40 hrs of sick time that he was planning to use after this surgery as well to help be home more. SW explained HH services and frequency and they are agreeable to HH and confirm they live in a mobile home and would benefit from home safety eval and DME recommendations. Spouse plans to purchase a BSC for use for the pt at night next to the bed. SW strongly encouraged spouse to reach out to [facility] and provided information on [employer] Whe[employer] and [employer] due to the likely need for CG assist in the home and spouse makes the meals and pt does not like the food he cooks. Spouse confirms that they do not qualify for Medicaid as he is working too much and getting social security monthly. Pt has historically been hesitant to allow other people into their home like CGs or someone she doesn't know and therefore spouse has been trying to manage it all himself but agreeable with trying to get a paid or volunteer caregiver in even if just to make meals for the week and shop to get pt used to having someone else there to assist. JEFFERY Ortiz kindly made [facility] referral as pt lives on [address] [facility] [facility] and only HH agency that serves the [facility]. F2F completed and scanned. Plan: SW to follow closely for plan of likely d/c home tomorrow via spouse POV and new [place] [facility] along with [facility] for possible meals and CG in the home. MELISSA Irvin
--- NOTE | 2023-02-28 14:55 | PT.IPTN ---
Current Diagnoses Unspecified fracture of shaft of left tibia, initial encounter for closed fracture (02/26/23) Surgery Performed Operation Date: 02/27/23 11:45 Actual Procedures p ORIF distal radius fracture(Left) - Shakir Tiwari MD s Intramedullary Nailing Tibia - Shakir Tiwari MD Physical Therapy Treatment Note M2 PT-IP Current Condition Start: 02/28/23 12:22 Freq: NEEDED Status: Active Protocol: Document 02/28/23 12:22 AB (Rec: 02/28/23 12:55 AB [id number]) Physical Therapy Current Condition Current Condition Evaluation Date 02/28/23 Treatment Diagnosis s/p operative fixation left tibia, ORIF distal radius Onset Date 02/27/23 M3 PT-IP Subjective Start: 02/28/23 12:22 Freq: NEEDED Status: Active Protocol: Document 02/28/23 15:17 TS (Rec: 02/28/23 15:38 TS [id number]) Subjective Physical Therapy Visit Type Type Treatment Note Visit Start Time 14:55 Visit Stop Time 15:15 Total Visit Minutes 20 Notes Caregiver training with spouse 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 Therapy Pain Assessment Pain When Pain Assessed During Mobility Pain Present Pain Present Pain Reported M4 PT-IP Mobility and Gait Start: 02/28/23 12:22 Freq: NEEDED Status: Active Protocol: Document 02/28/23 15:17 TS (Rec: 02/28/23 15:38 TS [id number]) PT-Bed Mobility Assessment Sit to Supine Sit to Supine Maximum Assistance,1 Person Assistance PT-Transfer Assessment Sit to and From Stand Sit to and from Stand Total Assistance,1 Person Assistance Equipment Transfer Assistive Device Gait Belt Transfers Transfer Destination Bed Transfer Technique Stand Step Pivot Transfer Ability Level of Assist Maximum Assistance,1 Person Assistance Comments Mobility Comments Spouse was instructed in and performed donning of gait belt . Chair was brought to left side of bed closet to door to imitate home environment. Stand step pivot transfer to bed MaxA from spouse, spouse instructed in handplacement on gait belt for transfer. She ambulated ~3' to bed with MaxA from spouse and with max cueing for steps. Sit to supine inot bed MaxA x1 for trunk and LE assistance. Pt was left in bed with all needs met, bed alarm on. Gait Assessment Gait Gait Assistance Required: Maximum Assistance,1 Person Assist Distance (Feet) 3 Able to Maintain Weight Bearing Status Yes During Gait Assistive Devices Assistive Device None,Gait Belt Orthotic/Prosthetic Devices or Brace: Yes Comments Gait Comments Stand step pivot to bed. Stair Climbing Assessment Comments Stair Climbing Comments Did not perform at PLOF. PT-Balance Assessment Sitting Balance and Reactions Static Sitting Balance Ability Fair Dynamic Sitting Balance Ability Poor Standing Balance and Reactions Static Standing Balance Ability Poor Dynamic Standing Balance Ability Poor M5 PT-IP Objective Assessments Start: 02/28/23 12:22 Freq: NEEDED Status: Active Protocol: Document 02/28/23 12:22 AB (Rec: 02/28/23 12:55 AB [id number]) Orientation Orientation/Cognition Level of Alertness Confusional State Orientation Name Safety Awareness Decreased Safety Awareness Memory Description Short Term Impaired Gross Range of Motion Upper Extremity ROM Assessment Left Impaired Lower Extremity ROM Assessment Left Impaired Strength Upper Extremity Strength Assessment Left Impaired Lower Extremity Strength Assessment Left Impaired M6 PT-IP Treatment Start: 02/28/23 12:22 Freq: NEEDED Status: Active Protocol: Document 02/28/23 15:17 TS (Rec: 02/28/23 15:38 TS [id number]) Physical Therapy Treatment Education Education Provided Precautions,Weight Bearing Status,Safety M7 PT-IP Assessment and Plan Start: 02/28/23 12:22 Freq: NEEDED Status: Active Protocol: Document 02/28/23 15:17 TS (Rec: 02/28/23 15:38 TS [id number]) PT Summary Assessment and Plan Potential Rehabilitation Potential Fair Summary Impairments Pain,ROM,Strength,Balance, Coordination,Cognition,Bed Mobility,Transfers,Gait, Activity Tolerance Progress Towards Goals Slow Progress - Other Assessment Summary Laisha is making slow progress with her mobility this session . She is MaxA for sit to stand for stand step pivot to bed from spouse. Spouse provides max cues for step sequencing with gait. She required MaxA for sit to supine into bed from spouse. Pt followed single step instructions well. Spouse was instructed in and performed donning of gait belt , stand step pivot sequencing and education on NWB for LUE and WBAT on LLE. PT is recommending home with 24/7 assist with HHPT vs SNF. Goals Bed Mobility Goal Minimal Assistance Transfer Goal Moderate Assistance Gait Goal Maximal Assistance Gait Distance 10 Other Goals Pt to be able to transfer with modA x1 to demonstrate return to PLOF. Pt to be able to ambulate with maxA x1 to demonstrate return to PLOF. Days to Meet Goals 5 Frequency of Treatment Frequency Of Treatment Twice a Day Treatment Plan Physical Therapy Treatment Plan Bed Mobility Training,Transfer Training,Gait Training, Therapeutic Exercise,Balance Retraining,Post Op Education, Discharge Planning,Hot or Cold Pack,Neuromuscular Re-ed, Coordination Retraining,Manual Therapy Other Recommendations and Next Treatment Work on transfers with spouse. Focus Precautions Other Precautions LLE WBAT in walking boot; LUE NWB in splint for 6 weeks Weight Bearing Status Weight Bearing Status Weight Bear as Tolerated Recommendations To Nursing Amount of Assist Needed Mechanical Lift Discharge Recommendations PT Discharge Recommendations Home with 19/11 Assist Available,Home Health,Home vs SNF Equipment Needed for Home Before BSC Discharge Transportation Needs at Discharge Private Vehicle,Wheelchair/ Cabulance
--- NOTE | 2023-02-28 16:01 | PM.PNPO.1 ---
Subjective Subjective Interval history: patient is found in the middle of therapy. She appears confused. Exam Vital Signs (past 8 hours): Oxygen Delivery Method Room Air Oxygen Flow Rate 2 Objective Labs 02/28/23 06:48 02/28/23 06:48 Labs: Laboratory Results - last 24 hr 02/28/23 06:48 WBC 10.2 D RBC 2.83 L Hgb 9.2 L Hct 26.3 L MCV 92.9 MCH 32.7 MCHC 35.2 RDW 13.3 Plt Count 132 L Sodium 134 L Potassium 4.2 Chloride 101 Carbon Dioxide 26 BUN 21 H Creatinine 0.65 Estimated GFR > 60 BUN/Creatinine Ratio 32.3 H Glucose 126 H Calcium 9.0 PFSH Medical History Malignant neoplasm of unspecified site of unspecified female breast Easy bruisability Pain Port-A-Cath in place (~2018) Alcoholic cirrhosis Hypertension Arthritis Lung cancer Impaired vision Hepatitis C Current every day smoker Lung cancer metastatic to brain Depression Anxiety Adenopathy Chronic fatigue Surgical History History of orthopedic surgery (09/27/21) History of surgery (07/07/19) S/P dissection of cervical lymph nodes (01/16/19) History of colon surgery (~08/2016) Family History Mother Cancer Social History marital status: household members: spouse and children Smoking Status: Former smoker alcohol intake: current substance use type: marijuana Assessment & Plan Post-op Postoperative Procedures: Procedures Operation Date: 02/27/23 11:45 Actual Procedure Side Surgeon p ORIF distal radius fracture Left Shakir Tiwari MD s Intramedullary Nailing Tibia Shakir Tiwari MD
--- NOTE | 2023-02-28 16:06 | PM.PNPO.1 ---
Subjective Subjective Interval history: Patient is found in the middle of therapy. She responds to her name, but appears confused as to why she is in the hospital. Her is present. He says the only concern is was small amount of blood found on the sheet. He states she has no other complaints. Exam Vital Signs (past 8 hours): Oxygen Delivery Method Room Air Oxygen Flow Rate 2 Narrative Exam Narrative: Splint found over left hand and wrist. Able to actively manipulate all five digits. Walker book over left leg. She is having difficulty placing weight on her left foot and using a walker. She does not respond well to questions. Able to manipulate toes with some coaxing. Const Orientation: alert and oriented to person Limitations: altered mental status Resp Effort & Inspection: normal respiratory effort and able to speak in complete sentences Objective Labs 02/28/23 06:48 02/28/23 06:48 Labs: Laboratory Results - last 24 hr 02/28/23 06:48 WBC 10.2 D RBC 2.83 L Hgb 9.2 L Hct 26.3 L MCV 92.9 MCH 32.7 MCHC 35.2 RDW 13.3 Plt Count 132 L Sodium 134 L Potassium 4.2 Chloride 101 Carbon Dioxide 26 BUN 21 H Creatinine 0.65 Estimated GFR > 60 BUN/Creatinine Ratio 32.3 H Glucose 126 H Calcium 9.0 PFSH Medical History Malignant neoplasm of unspecified site of unspecified female breast Easy bruisability Pain Port-A-Cath in place (~2018) Alcoholic cirrhosis Hypertension Arthritis Lung cancer Impaired vision Hepatitis C Current every day smoker Lung cancer metastatic to brain Depression Anxiety Adenopathy Chronic fatigue Surgical History History of orthopedic surgery (09/27/21) History of surgery (07/07/19) S/P dissection of cervical lymph nodes (01/16/19) History of colon surgery (~08/2016) Family History Mother Cancer Social History marital status: household members: spouse and children Smoking Status: Former smoker alcohol intake: current substance use type: marijuana Assessment & Plan Post-op Postoperative Procedures: Procedures Operation Date: 02/27/23 11:45 Actual Procedure Side Surgeon p ORIF distal radius fracture Left Shakir Tiwari MD s Intramedullary Nailing Tibia Shakir Tiwari MD Postoperative day: 1 Postoperative plan narrative: Postop she will be weight-bearing as tolerated on the left lower extremity, okay to remove dressings and shower on postop day 3 (Saturday). Replace dressings with Band-Aids and Dev wrap. With regards to the left upper extremity, splint is to remain on for 6 weeks. Continue to work with PT so that she can be discharged when medically able.
[2023-02-28 18:00] VITALS: BP 169/95; PULSE 113; RESP 18; TEMP 36.7; O2SAT 93
[2023-02-28 20:40] VITALS: BP 107/62; PULSE 87; RESP 16; TEMP 36.2; O2SAT 91
[2023-02-28] MEDS: MORPHINE 4 MG/ML INJ 3 MG IV (23:33)
[2023-03-01 00:10] VITALS: BP 130/65; PULSE 80; RESP 16; TEMP 36.4; O2SAT 94
[2023-03-01] MEDS: OXYCODONE IR 5 MG TABLET PO ×3 (01:16→15:15)
[2023-03-01 05:30] VITALS: BP 136/71; PULSE 78; RESP 16; TEMP 36.1; O2SAT 96
[2023-03-01] MEDS: LEVOTHYROXINE 75 MCG TABLET PO (06:44)
--- NOTE | 2023-03-01 09:10 | P.PN_ITS ---
Subjective Subjective Date Patient Seen: 03/01/23 Time Patient Seen: 09:10 Interval history: Asked by PT to address pts left arm splint and DANIS wrap as distal hand was quite swollen and pt was developing a blister on her arm. She is eating breakfast and her is present. She is somewhat confused, which sounds like it is her baseline, but she is cooperative with examination. Disposition is SNF vs home with spouse. Exam Vital Signs (past 8 hours): - 03/01/23 05:30 Temperature 96.9 F L Pulse Rate 78 Respiratory Rate 16 Blood Pressure 136/71 Pulse Oximetry 96 Oxygen Flow Rate 0 Oxygen Delivery Method Room Air Oxygen Flow Rate 0 Narrative Exam Narrative: Pt has a removable velcro splint over DANIS wrap and dressings. DANIS was removed and reapplied with an area cut out so it won't rub against her thumb. Wrist splint was replaced. There continues to be swelling on the dorsal side of the exposed hand, but there is brisk capillary refill and the splint and dressing are not overly compressive. Her distal left leg dressing was saturated with blood and changed. Blistering to the left vernon was covered with xeroform and telfa and the leg was rewrapped. Objective Labs 02/28/23 06:48 02/28/23 06:48 [facility] Medical History Malignant neoplasm of unspecified site of unspecified female breast Easy bruisability Pain Port-A-Cath in place (~2018) Alcoholic cirrhosis Hypertension Arthritis Lung cancer Impaired vision Hepatitis C Current every day smoker Lung cancer metastatic to brain Depression Anxiety Adenopathy Chronic fatigue Surgical History History of orthopedic surgery (09/27/21) History of surgery (07/07/19) S/P dissection of cervical lymph nodes (01/16/19) History of colon surgery (~08/2016) Family History Mother Cancer Social History marital status: household members: spouse and children Smoking Status: Former smoker alcohol intake: current substance use type: marijuana Assessment & Plan Post-op Assessment and plan (1) S/P wrist surgery: Assessment and Plan narrative: Minimal (1-2 pounds) weightbearing to left hand. Splint on at all times x 6 weeks. (2) S/P surgical manipulation of ankle joint: Assessment and Plan narrative: Weightbearing as tolerated on left leg with boot in place. Can have boot off to sleep and shower if she uses a shower chair. Nonweightbearing if not wearing boot. Postoperative Procedures: Procedures Operation Date: 02/27/23 11:45 Actual Procedure Side Surgeon p ORIF distal radius fracture Left Shakir Tiwari MD s Intramedullary Nailing Tibia Shakir Tiwari MD Postoperative day: 2
--- NOTE | 2023-03-01 09:15 | OT.IP.TRT ---
Current Diagnoses Unspecified fracture of shaft of left tibia, initial encounter for closed fracture (02/26/23) Other specified postprocedural states (02/26/23) Surgery Performed Operation Date: 02/27/23 11:45 Actual Procedures p ORIF distal radius fracture(Left) - Shakir Tiwari MD s Intramedullary Nailing Tibia - Shakir Tiwari MD Occupational Therapy Treatment Note M2 OT-IP Current Condition Start: 02/28/23 13:12 Freq: Status: Active Protocol: Document 02/28/23 12:10 [facility] (Rec: 02/28/23 13:26 [facility] [id number]) Occupational Therapy Current Condition Current Condition Evaluation Date 02/28/23 Treatment Diagnosis S/P L tibia shaft fx/L distal radius fx/ left brachioradialis contracture Diagnosis Onset Date 02/26/23 Weight Bearing Status Allowed Weight Bearing Amount (enter % WBAT LLE in tall boot, or #) (%) LUE in splint NWB M3 OT- IP Subjective and Pain Start: 02/28/23 13:12 Freq: Status: Active Protocol: Document 03/01/23 08:30 [facility] (Rec: 03/01/23 09:40 [facility] [id number]) OT- Subjective Occupational Therapy Visit Type Type Treatment Note Visit Start Time 08:30 Visit Stop Time 09:14 Total Visit Minutes 44 Occupational Therapy Visit Comments Patient Comments Pt eventually agreed to try SLUM as per request from hospitalist. Patient/Caregiver Goals To go home. OT Pain Assessment Pain Present Pain Present Pain Reported Location Left Wrist Pain Behaviors Facial Grimacing,Guarding, Holding Area,Moaning M4 OT- IP ADL's Start: 02/28/23 13:12 Freq: Status: Active Protocol: Document 02/28/23 12:10 [facility] (Rec: 02/28/23 13:26 [facility] [id number]) OT [id number] Comments OT Self-Feeding Comments Not at meal time. Per has had to assist her since breaking her wrist. OT ADL-Grooming Comments OT Grooming Comments Not performed. OT ADL-Oral Care Comments Oral Care Comments Not performed. OT ADL-Dressing General Eval Upper Body Dressing Ability Maximum Assistance,Total Assistance Lower Body Dressing Ability Total Assistance Comments OT Dressing Comments Pt will need assist for all need at this time. OT ADL-Toileting General Evaluation Toileting Ability Total Assistance Areas Needing Assistance Empty Catheter or Colostomy Comments OT Toileting Comments Bosch in place. Pt uses Depends at home. Otherwise pt' s has been able to walk with pt a few steps to the bathroom.At this time pt will benefit from a BSC. OT ADL-Bathing Bathing Type Bathing Type Bed Bath Comments OT Bathing Comments At this time best to do sponge bath. M5 OT- IP IADL's Start: 02/28/23 13:12 Freq: Status: Active Protocol: Document 02/28/23 12:10 [facility] (Rec: 02/28/23 13:26 [facility] [id number]) OT-Instrumental Activities of Daily Living Deficits IADL Deficits Identified Deficits Home Safety Awareness Awareness of Need for Assistance at Home Decreased Awareness Ability to Problem Solve Emergency Unable to Problem Solve Situations Home Safety Comments Pt assist with all pt's needs at this time. Medication Management Medication Management Caregiver Administers Money Management Money Management Caregiver Provides Assistance Meal Preparation Meal Preparation Caregiver Provides Assist Video And Sound Recorder Video And Sound Recorder Caregiver Provides Assist M6 OT- IP Functional Cognition Start: 02/28/23 13:12 Freq: Status: Active Protocol: Document 03/01/23 08:30 [facility] (Rec: 03/01/23 09:40 [facility] [id number]) Cognitive Factors Limiting Selfcare Function Cognitive Ability Level of Alertness Alert Patient Orientation Name Attention Span Ability Capable of Focused Attention, Unable to Sustain Attention Memory Description Short Term Impaired,Snf Impaired,Working Impaired Cognitive Comments Cognitive Assessment Comments Pt scored 1/13 and refused to continue. Per pt has memory issues and always has to repeat himself to the pt. Pt at times only listens to what she want so hear at times as well. Pt also has history of brain mets. M8 OT- IP Objective Assessments Start: 02/28/23 13:12 Freq: Status: Active Protocol: Document 02/28/23 12:10 [facility] (Rec: 02/28/23 13:26 [facility] [id number]) OT Gross Range of Motion Upper Extremity Range of Motion Assessment Within Functional Limits OT Strength Upper Extremity Strength Assessment Within Functional Limits Comments Strength Comments BUE 4/5 OT Sensation Assessment Edema Edema Comments LUE swollen and asked nursing to loosen the vanesa wrap on her hand. Able to elevate her left hand on pillows. M9 OT- IP Assessment and Plan Start: 02/28/23 13:12 Freq: Status: Active Protocol: Document 03/01/23 08:30 [facility] (Rec: 03/01/23 09:40 [facility] [id number]) OT Summary Assessment and Plan Potential Rehabilitation Potential Good Analytic Complexity at Evaluation High Summary OT Impairments Pain,Range of Motion,Strength, Balance,Functional Cognition, Functional Mobility,Self- Feeding,Grooming,Dressing, Toileting,Bathing,Toilet Transfers,Shower Transfers, Activity Tolerance Progress Towards Goals Slow Progress due to Pain,Slow Progress due to Medical Issues,Slow Progress due to Activity Tolerance,Slow Progress due to Cognition Assessment Summary Pt will requires 24/7 assist and home health as pt not wanting to go to skilled rehab , in addition pt probably not the ideal candidate to go to SNF due to cognitive impairments and as pt has a structured routine at home and has history of brain METS. However, pt requires extensive assist and pt's working on caregiver training with therapy at this time. Pt to go home with 24/7 assist and home health when medically stable. PA able to come in to the room to change the dressings to her left arm and leg . PA states wrist splint to be on for 6 weeks and that the walking boot can be off at night in bed. Goals Self-Feeding Goal Standby Assistance Grooming Goal Standby Assistance Dressing Goal Moderate Assistance Toileting Goal Moderate Assistance Bathing Goal Moderate Assistance Toilet Transfer Goal Moderate Assistance Shower Transfer Goal Moderate Assistance Patient/Caregiver Education Goal Caregiver Independent Assisting Patient Days to Meet Goals 19 Frequency of Treatment Frequency Of Treatment Once a Day Treatment Plan OT Treatment Plan ADL Training,Functional Cognition Training,Functional Mobility,Patient/Family Education,Discharge Planning Other Treatment Recommendations and Next Transfer stand pivot to the Treatment Focus BSC with MAXAX1. Discharge Recommendations OT Discharge Recommendations Home with 24/7 Assist Available,Home Health,SNF Rehab,Home vs SNF Other Discharge Recommendations Hopefully if pt able to make good progress home with 24/7 assist and home health. Home Equipment Needs [facility] Transportation Needs at Discharge Private Vehicle,Wheelchair/ Cabulance
[2023-03-01 09:54] VITALS: BP 143/83; PULSE 87
[2023-03-01] MEDS: lisinopriL 10 MG TABLET PO (09:54)
[2023-03-01] MEDS: cefTRIAXone 1,000 MG in SODIUM CHLORIDE 0.9% 100 ML 200 MG IV (09:56)
--- NOTE | 2023-03-01 11:18 | PT-IP ANOTE ---
Pt refused to work with PT this morning, she states she just wants to go home and go to bed. Hospitalist came into room and plan is to d/c pt today. If pt is still here in afternoon PT will check on her.
--- NOTE | 2023-03-01 11:27 | PM.DS.1 ---
History of Present Illness History of Present Illness Date Patient Seen: 02/27/23 Time Patient Seen: 11:07 Date of Onset of Symptoms: 02/26/23 Chief complaint: fell ankle or lt foot injured Narrative: Laisha is a pleasant 67-year-old female with past medical history of breast cancer, with brain metastases status post radiation and left-sided weakness here with her for evaluation and preoperative assessment for her left tibia and left distal radius. She was previously scheduled today for operative fixation of her left distal radius fracture however, she fell last night sustaining a left tibia fracture. After she went to the [facility] Emergency Department, she was placed into a short-leg splint and admitted. Plan is for me to fix both of her tibia and her distal radius. Discharge Providers Provider Date of admission: 02/26/23 18:16 Discharge Date: 03/01/23 Primary care physician: Nkechi Spear PA-C Consults: 02/26/23 19:03 Consult to General Surgery Routine Comment: Consulting Provider: Shakir Tiwari Reason for consultation: tib fib fracture Has provider been notified: Yes 02/28/23 07:26 Consult to Physical Therapy Evaluate & Treat Comment: Physician Instructions: Evaluate and Treat 02/28/23 07:27 Consult to Occupational Therapy Evaluate & Treat Comment: please do SLUMS Physician Instructions: Evaluate and treat Discharge provider: Benito Escalante, Summary Hospital Course Discharge Diagnosis: 1. Acute left tibial/fibula fracture and left ulnar sytloid fracture -s/p repair left left tibia and left distal radius on 02/27 -IV pain medications ordered -ortho consulted -PT/OT ordered and gave home training, he will get DME equipment as well 2. History of metastatic lung cancer -per family in remission, with no evidence of active disease, last seen oncology in September 2022 -off keytruda now 3. CLL -monitor as outpatient 4. Alcoholic cirrhosis -noted in history -no evidence of decompensation 5. Hypothyroidism -continue synthroid 6. Neurologic defect from brain mets and radiation -OT eval to do SLUMS, likely chronic cog impairment present. Unable to complete as patient too confused. -likely has severe dementia from prior brain mets 7. Hypertension -hold home meds for now, restarted on dc Hospital Course: Admitted for falls at home causing multiple fractures including left leg tib/fib and left wrist. Repaired by ortho and PT/OT gave patient recs. SNF intially recommended, but due to patient's dementia will likely not do well so she returned home with her spouse. Script for oxy sent for pain. Exam Vital Signs (past 8 hours): - 03/01/23 05:30 03/01/23 09:54 Temperature 96.9 F L Pulse Rate 78 87 Respiratory Rate 16 Blood Pressure 136/71 143/83 H Pulse Oximetry 96 Oxygen Flow Rate 0 Oxygen Delivery Method Room Air Oxygen Flow Rate 0 Narrative Exam Narrative: GEN: no acute distress, confused CV: regular rate and rhythm EXT: left arm in splint, left leg wrapped Objective Labs 02/28/23 06:48 02/28/23 06:48 [facility] Medical History Malignant neoplasm of unspecified site of unspecified female breast Easy bruisability Pain Port-A-Cath in place (~2018) Alcoholic cirrhosis Hypertension Arthritis Lung cancer Impaired vision Hepatitis C Current every day smoker Lung cancer metastatic to brain Depression Anxiety Adenopathy Chronic fatigue Surgical History History of orthopedic surgery (09/27/21) History of surgery (07/07/19) S/P dissection of cervical lymph nodes (01/16/19) History of colon surgery (~08/2016) Family History Mother Cancer Social History marital status: household members: spouse and children Smoking Status: Former smoker alcohol intake: current substance use type: marijuana Discharge Plan Discharge Plan Patient Disposition: Home Discharge orders & Medications Prescriptions: Continued naproxen sodium [Aleve] 220 mg Tablet 220 mg PO BID PRN (Reason: Pain) lidocaine-prilocaine 2.5-2.5 % Cream 1 applic topical PRN PRN (Reason: pain) Qty: 30 0RF Rx Instructions: Apply to the skin over the port at least 2 hrs before planned use of the port. Cover the cream with a small piece of plastic wrap and leave in place until the port is accessed. oxycodone-acetaminophen 5-325 mg Tablet 1 tab PRN PRN (Reason: Pain (Scale Score 4-6)) lisinopril 10 mg Tablet 10 mg PO DAILY Qty: 30 11RF levothyroxine 50 mcg Tablet 50 mcg PO DAILY Qty: 30 11RF Patient Comments: pt goes back and forth to 75 then 50mcg levothyroxine 75 mcg Tablet 75 mcg PO DAILY Qty: 30 6RF oxycodone-acetaminophen [Percocet] 5-325 mg tablet 1 tab PO QID PRN (Reason: pain) Qty: 25 0RF clonidine HCl 0.1 mg tablet 0.1 mg PO DAILY PRN (Reason: pre-procedure) Qty: 10 2RF Patient Comments: patient takes it as needed Rx Instructions: Take one tablet before the oncology visit. lorazepam 0.5 mg tablet 0.5 mg PO DAILY PRN (Reason: anxiety) Qty: 4 2RF Rx Instructions: Take one tab at the oncology visit for elevated b/p. Follow up/Referrals: Shakir Tiwari MD [Physician] - 2 Weeks (Follow up in ortho clinic w/ PA or Dr Tiwari in 2 weeks for wound check. Follow up with Dr Tiwari in 6 weeks for repeat imaging. Left arm splint to remain in place until this appointment.) Nkechi Spear PA-C [Primary Care Provider] - 2 Weeks Diet/Activity/Treatments Activity: Weight-bearing as tolerated on the left lower extremity while wearing boot. With regards to the left upper extremity, splint is to remain on for 6 weeks. Skin/Wound/Dressing Care Dressing: Okay to remove dressings on leg and shower on postop day 3 (Saturday, 03/02). Replace dressings with Band-Aids and Dev wrap. Visit Report/Discharge Packet Instructions: DI for Open Reduction Internal Fixation Surgery Stand Alone Forms: Patient Portal/API, Stroke Signs & Symptoms, Surgery Discharge Discharge Data Primary Care Provider: Nkechi Spear Attending Provider: Rocco Bains Admvanessa Date/Time: 02/26/23 18:16
[2023-03-01 12:00] VITALS: BP 122/59; PULSE 80; RESP 16; TEMP 36.9; O2SAT 91
--- NOTE | 2023-03-01 13:17 | CM.DPC ---
Addendum entered by MELISSA Irvin 03/01/23 14:02: ADD: SHARATH met bedside with pt and spouse and they are in agreement with d/c today and [place] [place] and pt's cronin cath discontinued this morning and waiting for pt to void independently. SHARATH encouraged pt and spouse to have pt drink more liquids as pt states she has not had much to drink since cronin d/c'd. SHARATH provided the [facility] brochure and discussed again with spouse and he is appreciative. SHARATH updated RN on time spouse was hopeful to d/c by 1445 [place] BF Original Note: DCP Discharge Home with HH Per MD and Ortho, pt medically stable to d/c home today with HH and wrist brace to stay on for 6 weeks and walking boot can be removed for sleep at night. OT worked with pt and spouse this AM and attempted SLUMS and pt scored 1/13 initially and refused to complete the test and pt refused PT stating she just wanted to go home and go to bed. SHARATH updated [facility] on discharge home today and d/c summ completed, HH orders placed, and F2F scanned and they confirm they can accept and can work with pt next week (today is Saturday). Spouse plans to get BSC for home use and given resources for [facility] to look into Meals on Wheels and in-home CG or volunteer visitor. Plan: Patient to d/c home today via spouse POV and [facility] and resources for likely future needs. MELISSA Irvin
[2023-03-01] MEDS: ACETAMINOPHEN 325 MG TABLET 650 MG PO (15:15)
--- NOTE | 2023-03-01 15:43 | PC.NURSE ---
Patient is A&OX 2-3 this a.m. She reports pain to L wrist and LLE at 5/10. +CMS to fingers and toes. some +1-2 swelling noted in L hand and bandage changed, placed slightly more loose. Encouraged patient to elevate LUE and mobilize fingers. She is cleared for discharge home today medically and expresses eagerness to discharge home this a.m. She has a cronin catheter removed at 1100 a.m. She is encouraged to drink, to void prior to discharging today. She is unable to void at 1500 yet bladder scan results are 108ml. MD notified and patient cleared to discharge home. informed to watch for urinary retention and to call MD if patient has not voided by 7 p.m. this evening. Patient's verbalizes understanding of site care, activity restrictions, medications as well as s/sx of infection/complication and he acknowledges needing to make a follow up appointment with Dr. Tiwari's office in 2 weeks for wound assessment. She is escorted via w/ch to private vehicle with for discharge home back to [facility] at approximately 1515 this afternoon.
== END 2023-03-01 15:22 | disposition home or self-care (01) ==
LOC: ED 18:16 → AC 02-27 07:48
PROVIDERS: Orthopaedic Surgery; Admitting Provider Internal Medicine; Emergency Provider Student in an Organized Health Care Education/Training Program; Family Provider Internal Medicine Hematology & Oncology; PCP Physician Assistant; Referring Provider Student in an Organized Health Care Education/Training Program; Visit Provider Internal Medicine
PROC: (CPT 27759; principal; 2023-02-27 11:45)
PROC: (CPT 27759; 2023-02-27 11:45)
DX: S82.202A Unspecified fracture of shaft of left tibia, initial encounter for closed fracture (principal); S52.552A Other extraarticular fracture of lower end of left radius, initial encounter for closed fracture; W19.XXXA Unspecified fall, initial encounter; Y92.009 Unspecified place in unspecified non-institutional (private) residence as the place of occurrence of the external cause
CPT/HCPCS: 27759; 25607; 29515; 36415; 70450; 73110; 73590; 73610; 76000; 80048; 80053; 81001; 82550; 83690; 84439; 84443; 84484; 85025; 85027; 85610; 87077; 87086; 87186; 93005; 96365; 96366; 96375; 96376; 97163; 97167; 97530; 99285; G0378; J0171; J0690; J0696; J1100; J2270; J2405; J2704; J3010

== ENCOUNTER → 2023-06-20 10:18 | Outpatient (CLI) | payer MEDICARE, SELFPAY ==
[2023-03-13 13:34] VITALS: BMI 20.5
[2023-06-20 19:35] LABS: Add Manual Diff / Slide Review NO; Basophils Absolute Auto 0 /uL (0-100); Basophils Percent Auto 0.6 % (0-2); Eosinophils Absolute Auto 200 /uL (0-450); Eosinophils Percent Auto 4.7 % (2-4); Hemoglobin 14.2 g/dL (12.0-16.0); Lymphocytes Absolute Auto 2100 /uL (1100-4500); Lymphocytes Percent Auto 47.1 % (25-40); Mean Corpuscular HGB Conc 33.8 % (30-36); Mean Corpuscular Hemoglobin 32.4 PG (26-34); Mean Corpuscular Volume 95.7 fL (80-100); Monocytes Absolute Auto 400 /uL (0-900); Monocytes Percent Auto 7.8 % (3-14); Neutrophils Absolute Auto 1800 /uL (1500-7000); Neutrophils Percent Auto 39.8 % (50-75); Platelet Count 182 X10^3/uL (150-400); Red Blood Cell Count 4.38 X10^6/uL (4.0-5.2); Red Cell Distribution Width 13.5 % (11.6-14.8); White Blood Cell Count 4.5 X10^3/uL (4.5-11.0)
[2023-06-20 19:41] LABS: Alanine Aminotransferase 23 IU/L (<35); Albumin 4.3 g/dL (3.5-5.0); Albumin Globulin Ratio 1.2 (1.0-2.8); Alkaline Phosphatase 86 U/L (38-126); Aspartate Aminotransferase 38 IU/L (14-36); BUN Creatinine Ratio 31.6 (6-22); Bilirubin Total 0.9 mg/dL (0.2-1.3); Blood Urea Nitrogen 24 mg/dL (7-17); Calcium 9.9 mg/dL (8.4-10.2); Carbon Dioxide 25 mmol/L (22-32); Chloride 105 mmol/L (98-107); Estimated Glomerular Filt Rate > 60 mL/min (>60); Globulin 3.7 g/dL (1.7-4.1); Glucose 103 mg/dL (80-110); HEMOLYSIS 21 (0-50); Potassium 4.1 mmol/L (3.4-5.1); Sodium 141 mmol/L (137-145)
[2023-06-20 20:11] LABS: Thyroid Stimulating Hormone 86.1 uIU/mL (0.47-4.68)
== END ==
PROVIDERS: Family Provider Internal Medicine Hematology & Oncology; PCP Physician Assistant; Visit Provider Internal Medicine Hematology & Oncology
DX: C79.31 Secondary malignant neoplasm of brain (principal); Z79.899 Other long term (current) drug therapy; C79.51 Secondary malignant neoplasm of bone
CPT/HCPCS: 80053; 84443; 85025

== ENCOUNTER → 2023-06-25 10:21 | Outpatient (CLI) | payer MEDICARE, SELFPAY ==
[2023-03-13 13:34] VITALS: BMI 20.5
--- NOTE | 2023-06-25 10:23 | DI.MRI.S_ITS ---
PROCEDURE: MR HEAD/BRAIN WO/W CON INDICATIONS: MALIGNANT NEOPLASM TO BRAIN AND BONE TECHNIQUE: Noncontrast axial T1 spin echo, axial T2 fast spin echo, sagittal and axial FLAIR, coronal T2 fast spin echo, axial gradient echo, axial diffusion and ADC through the brain. After the administration of contrast, axial and coronal and sagittal T1 spin echo with fat saturation through the brain. COMPARISON: [facility], MR, MR HEAD/BRAIN WO/W CON, 08/10/2022, 13:08. FINDINGS: Image quality: Excellent. CSF spaces: Basal cisterns are patent. No extra-axial fluid collections. Ventricles are normal in size and shape. Brain: No midline shift. No intracranial bleeds or masses. No abnormal intracranial enhancement. Relatively prominent brain parenchymal volume loss and chronic small vessel ischemic change can be seen for age. The brainstem appears normal. Diffusion-weighted images demonstrate no acute infarct. No chronic ischemic insults. Multiple foci of scattered lacunar infarcts can be seen, including involving the left thalamus and the cheryl. Normal intravascular flow voids are present. Symmetric calcification can be seen involving the basal ganglia, which is considered to be normal for age. Skull and face: Calvarial marrow is normal in signal. Orbits appear normal. Sinuses: Sinuses and mastoids appear clear. IMPRESSION: No masses or abnormal enhancement can be seen. Relatively prominent brain parenchymal volume loss and chronic small vessel ischemic change can be seen. Multiple foci of remote lacunar infarcts can be seen. No findings of acute or subacute infarction can be seen. Dictated by: Trevin Barreto M.D. on 06/25/2023 at 10:54 Approved by: Trevin Barreto M.D. on 06/25/2023 at 10:57
--- NOTE | 2023-06-25 12:11 | DI.CT.S_ITS ---
PROCEDURE: CT CHEST ABD PEL W CON INDICATIONS: MALIGNANT NEOPLASM TO BRAIN AND BONE History of lung cancer per prior report TECHNIQUE: After the administration of intravenous contrast, 5 mm thick sections acquired from the lung apices to the symphysis. 5 mm coronal and sagittal reformats were performed, with additional 7 mm MIP reformats through the lungs. For radiation dose reduction, the following was used: automated exposure control, adjustment of mA and/or kV according to patient size. COMPARISON: [facility], CT, CT CHEST ABD PEL W CON, 08/10/2022, 12:15. FINDINGS: Image quality: Diagnostic Moderate motion artifact, particularly in the upper abdomen Lungs and pleura: Basal atelectasis/scarring. Mild bronchial wall thickening, likely bronchitis. Emphysema. Mild peripheral reticulation. No pleural effusions. No new or enlarging nodules. Mediastinum, heart, and esophagus: Coronary calcifications. Heart size is at the upper limit of normal. Unchanged prominent mediastinal and hilar lymph nodes, not enlarged by size criteria. Chest wall and thyroid: There is a left port catheter terminating SVC. Possibly atrophic thyroid. There are chest wall venous collaterals. Liver: There is a small hypervascular lesion again seen at the liver dome. Recannulized periumbilical vein suggestive of high pulmonary pressures. Mildly nodular liver contour. Gallbladder and biliary system: Unremarkable, nondilated Pancreas: No ductal dilation Spleen: Nonenlarged Adrenals: Possible left small nodule versus thickening. Kidneys: No solid mass or hydronephrosis Vessels and lymph nodes: The main portal vein is patent. Atherosclerotic calcifications. No pathologic lymphadenopathy by size criteria. Bowel and peritoneum: No evidence of small bowel obstruction. Moderate fecal loading. There are bowel suture lines. No drainable abscess. No pathologic ascites. Body wall: Unremarkable. Small umbilical hernia. Pelvis: Bladder is unremarkable. Reproductive organs not well evaluated on CT. Bones: Degenerative findings. Left humeral hardware. Decreased conspicuity of previously noted thoracic vertebral body enhancement versus sclerosis. IMPRESSION: No new or enlarging disease in the chest abdomen or pelvis. Previously noted vertebral enhancement the thoracic spine is not seen. Differential includes prominent venous plexuses. There are signs of portal hypertension. Possible bronchitis. Other nonacute findings above Motion degraded CT. Dictated by: Luis Langford M.D. on 06/25/2023 at 14:29 Approved by: Luis Langford M.D. on 06/25/2023 at 14:41
== END ==
PROVIDERS: Family Provider Internal Medicine Hematology & Oncology; PCP Physician Assistant; Referring Provider Internal Medicine Hematology & Oncology; Visit Provider Internal Medicine Hematology & Oncology
DX: C34.90 Malignant neoplasm of unspecified part of unspecified bronchus or lung (principal); C79.31 Secondary malignant neoplasm of brain; C79.51 Secondary malignant neoplasm of bone; I25.10 Atherosclerotic heart disease of native coronary artery without angina pectoris; K42.9 Umbilical hernia without obstruction or gangrene
CPT/HCPCS: 70553; 71260; 74177

== ENCOUNTER → 2024-01-13 10:45 | Outpatient (CLI) | payer MEDICARE, SELFPAY ==
[2023-03-13 13:34] VITALS: BMI 20.5
[2024-01-13 19:25] LABS: Add Manual Diff / Slide Review NO; Basophils Absolute Auto 0 /uL (0-100); Basophils Percent Auto 0.6 % (0-2); Eosinophils Absolute Auto 100 /uL (0-450); Eosinophils Percent Auto 2.7 % (2-4); Hematocrit 38.3 % (36-46); Hemoglobin 12.7 g/dL (12.0-16.0); Lymphocytes Absolute Auto 1700 /uL (1100-4500); Lymphocytes Percent Auto 36.5 % (25-40); Mean Corpuscular HGB Conc 33.1 % (30-36); Mean Corpuscular Hemoglobin 33.3 PG (26-34); Mean Corpuscular Volume 100.5 fL (80-100); Monocytes Absolute Auto 500 /uL (0-900); Monocytes Percent Auto 9.9 % (3-14); Neutrophils Absolute Auto 2300 /uL (1500-7000); Neutrophils Percent Auto 50.3 % (50-75); Platelet Count 190 X10^3/uL (150-400); Red Blood Cell Count 3.81 X10^6/uL (4.0-5.2); Red Cell Distribution Width 14.3 % (11.6-14.8); White Blood Cell Count 4.6 X10^3/uL (4.5-11.0)
[2024-01-13 19:43] LABS: Alanine Aminotransferase 15 IU/L (<35); Albumin 4.4 g/dL (3.5-5.0); Albumin Globulin Ratio 1.3 (1.0-2.8); Alkaline Phosphatase 98 U/L (38-126); Aspartate Aminotransferase 31 IU/L (14-36); BUN Creatinine Ratio 30.8 (6-22); Bilirubin Total 1.9 mg/dL (0.2-1.3); Blood Urea Nitrogen 20 mg/dL (7-17); Calcium 9.6 mg/dL (8.4-10.2); Carbon Dioxide 21 mmol/L (22-32); Chloride 108 mmol/L (98-107); Estimated Glomerular Filt Rate > 60 mL/min (>60); Globulin 3.5 g/dL (1.7-4.1); Glucose 100 mg/dL (80-110); HEMOLYSIS 27 (0-50); Potassium 3.7 mmol/L (3.4-5.1); Sodium 139 mmol/L (137-145); Total Protein 7.9 g/dL (6.3-8.2)
[2024-01-13 20:11] LABS: Thyroid Stimulating Hormone 8.34 uIU/mL (0.47-4.68)
== END ==
PROVIDERS: Family Provider Internal Medicine Hematology & Oncology; PCP Physician Assistant; Visit Provider Internal Medicine Hematology & Oncology
DX: Z79.899 Other long term (current) drug therapy (principal); C79.51 Secondary malignant neoplasm of bone; C79.31 Secondary malignant neoplasm of brain
CPT/HCPCS: 80053; 84443; 85025

== ENCOUNTER → 2024-07-02 14:24 | Outpatient (CLI) | payer MEDICARE, SELFPAY ==
[2023-03-13 13:34] VITALS: BMI 20.5
[2024-07-02 19:23] LABS: Add Manual Diff / Slide Review NO; Basophils Absolute Auto 0 /uL (0-100); Basophils Percent Auto 0.8 % (0-2); Eosinophils Absolute Auto 100 /uL (0-450); Hematocrit 35.5 % (36-46); Hemoglobin 12.1 g/dL (12.0-16.0); Lymphocytes Absolute Auto 2100 /uL (1100-4500); Mean Corpuscular HGB Conc 34.1 % (30-36); Mean Corpuscular Hemoglobin 32.3 PG (26-34); Mean Corpuscular Volume 94.6 fL (80-100); Monocytes Absolute Auto 600 /uL (0-900); Monocytes Percent Auto 11.7 % (3-14); Neutrophils Absolute Auto 2600 /uL (1500-7000); Neutrophils Percent Auto 47.5 % (50-75); Platelet Count 212 X10^3/uL (150-400); Red Blood Cell Count 3.75 X10^6/uL (4.0-5.2); Red Cell Distribution Width 13.7 % (11.6-14.8); White Blood Cell Count 5.5 X10^3/uL (4.5-11.0)
[2024-07-02 19:27] LABS: Alanine Aminotransferase 19 IU/L (<35); Albumin 4.4 g/dL (3.5-5.0); Albumin Globulin Ratio 1.4 (1.0-2.8); Alkaline Phosphatase 86 U/L (38-126); Aspartate Aminotransferase 31 IU/L (14-36); BUN Creatinine Ratio 39.1 (6-22); Bilirubin Total 1.9 mg/dL (0.2-1.3); Blood Urea Nitrogen 27 mg/dL (7-17); Calcium 9.4 mg/dL (8.4-10.2); Carbon Dioxide 25 mmol/L (22-32); Chloride 105 mmol/L (98-107); Estimated Glomerular Filt Rate > 60 mL/min (>60); Globulin 3.2 g/dL (1.7-4.1); Glucose 106 mg/dL (80-110); HEMOLYSIS < 15 (0-50); Potassium 3.9 mmol/L (3.4-5.1); Sodium 139 mmol/L (137-145); Total Protein 7.6 g/dL (6.3-8.2)
[2024-07-02 19:58] LABS: Thyroid Stimulating Hormone < 0.015 uIU/mL (0.47-4.68)
== END ==
PROVIDERS: Family Provider Internal Medicine Hematology & Oncology; PCP Physician Assistant; Visit Provider Internal Medicine Hematology & Oncology
DX: C79.31 Secondary malignant neoplasm of brain (principal); C79.51 Secondary malignant neoplasm of bone; Z79.899 Other long term (current) drug therapy
CPT/HCPCS: 80053; 84443; 85025